=== PATIENT | male | born 1965 | race Caucasian/White ===

== ENCOUNTER 2023-09-07 08:21 | Outpatient (OUT) | payer OTHER, SELFPAY ==
[2023-09-07 09:00] LABS: Basophils Percent Auto 0.6 % (0.2-2.0); Eosinophils Absolute Auto 0.2 10^3/uL (0.0-0.7); Eosinophils Percent Auto 2.9 % (0.9-7.0); Hematocrit 46.3 % (42.0-54.0); Hemoglobin 14.9 g/dL (14.0-18.0); Immature Granulocytes Abs Auto 0.01 10^3/uL (0.00-0.03); Immature Granulocytes Pct Auto 0.2 % (0.0-0.5); Lymphocytes Absolute Auto 1.9 10^3/uL (1.2-3.8); Mean Corpuscular HGB Conc 32.2 g/dL (29.9-35.2); Mean Corpuscular Hemoglobin 29.5 pg (25.9-34.0); Mean Corpuscular Volume 91.7 fL (80.0-94.0); Mean Platelet Volume 10.7 fL (9.5-13.5); Monocytes Absolute Auto 0.6 10^3/uL (0.3-0.8); Monocytes Percent Auto 8.4 % (1.7-12.0); Neutrophils Absolute Auto 3.9 10^3/uL (1.4-6.5); Neutrophils Percent Auto 58.9 % (43.0-75.0); Platelet Count 146 10^3/uL (150-450); Red Blood Count 5.05 10^6/uL (4.70-6.10); Red Cell Distribution Width 12.7 % (11.0-15.0); White Blood Count 6.6 10^3/uL (4.0-11.0)
[2023-09-07 09:07] LABS: Estimated Average Glucose 157 mg/dL; Glycohemoglobin A1C 7.1 % (4.5-6.2)
[2023-09-07 09:37] LABS: Alanine Aminotransferase 36 U/L (16-63); Albumin Globulin Ratio 0.8; Albumin Level 3.2 g/dL (3.4-5.0); Alkaline Phosphatase 82 U/L (46-116); Anion Gap 15.5; Aspartate Amino Transferase 26 U/L (15-37); BUN Creatinine Ratio 10.7; Bilirubin Total 0.5 mg/dL (0.2-1.0); Calcium 8.5 mg/dL (8.5-10.1); Carbon Dioxide 24.8 mmol/L (21.0-32.0); Chloride 105 mmol/L (98-107); Chol HDL Ratio 5.5; Cholesterol 198 mg/dL (<=200); Estimated GFR (African America >60 (>=60); Estimated GFR (Non-African Ame >60 (>=60); Free T3 2.42 pg/mL (2.18-3.98); Glucose 148 mg/dL (74-106); HDL Cholesterol 36 mg/dL (40-60); Potassium 4.3 mmol/L (3.5-5.1); Sodium 141 mmol/L (136-145); Thyroid Stimulating Hormone 1.255 uIU/mL (0.358-3.740); Total Protein 7.2 g/dL (6.4-8.2); Triglycerides 112 mg/dL (<=150); VLDL CHOLESTEROL 22.4 mg/dL
== END 2023-09-07 08:22 | disposition home or self-care (01) ==
LOC: LAB 08:26
PROVIDERS: PCP Family Medicine; Visit Provider Family Medicine
DX: Z00.00 Encounter for general adult medical examination without abnormal findings (principal); E78.5 Hyperlipidemia, unspecified; E03.9 Hypothyroidism, unspecified; R73.09 Other abnormal glucose
CPT/HCPCS: 36415; 80053; 80061; 83036; 84436; 84443; 84481; 85025; G0103

== ENCOUNTER 2023-09-19 17:55 | Outpatient (OUT) | payer OTHER, SELFPAY ==
--- OUTSIDE RECORDS SUMMARY | 2023-09-19 17:58 | XMS_ITS ---
Patient Summarization (C-CDA 2.1 CCD) Created on: September 19, 2023 RICK JENKINS : 1965 Sex: Male Author Organization Sample organization Care Team Providers Care [employer]ian [employer] Name Role Phone JUAN ALBERTO HODGE Primary Care Unavailable EARNEST MELLO Admitting Unavailable EARNEST MELLO Attending Unavailable BILLY BLACKMAN Consulting Unavailable OUSMANE ANDERSON V Consulting Unavailable MEG REYEZ Admitting Unavailable MEG REYEZ Attending Unavailable JUAN ALBERTO HODGE Primary Care Unavailable GAVINO RODRIGUEZ Consulting Unavailable MEG REYEZ Consulting Unavailable Encounters Encounter Date Encounter Type Care Provider Facility Start: 04-13-2019 End: 04-14-2019 Patient encounter procedure MEG REYEZ Facility: Start: 03-21-2019 End: 03-21-2019 Patient encounter procedure JUAN ALBERTO LEONARDO Facility:[facility] Payers Date Payer Category Payer Unknown [id number] 1965 Unknown [id number] 1961 Private Health Insurance [id number] 1961 Unknown [id number] Problems Active Problems Problem Classification Problem Date Documented Date Episodic/Chronic External cause codes: Fall (1 source) Fall on same level from slipping, tripping and stumbling without subsequent striking against object, initial encounter; Translations: [FALL SAME LVL SLIP NO STRK OBJ INIT] Onset: 03-24-2019 Joint disorders and dislocations; trauma-related (1 source) Chondromalacia patellae, right knee; Translations: [CHONDROMALACIA PATELLAE RIGHT KNEE] Onset: 04-14-2019 Chronic Past or Other Problems Problem Classification Problem Date Documented Da te Episodic/Chronic Other connective tissue disease (1 source) Synovial cyst of popliteal space [Guajardo], right knee; Translations: [SYNOVIAL CYST POP SPACE RIGHT KNEE] Onset: 04-14-2019 Episodic Other injuries and conditions due to external causes (3 sources) Unspecified injury of right lower leg, initial encounter; Translations: [UNS INJURY RT LOWER LEG INITIAL ENC] Onset: 03-21-2019 Episodic Sprains and strains (5 sources) Sprain of unspecified site of right knee, initial encounter; Translations: [Sprain of medial collateral ligament of right knee, initial encounter] Onset: 04-13-2019 Episodic Results Test Name Value Interpretation Reference Range Facility Operative Reporton Operative Report Date of Surgery: 08/05/2020 SURGEON: Cody Vazquez D.O. PREOPERATIVE DIAGNOSES: 1. Medial meniscus tear, right knee 2. [facility] injury 03/20/2019 POSTOPERATIVE DIAGNOSES: 1. Medial meniscus tear, right knee 2. [facility] injury 03/20/2019 OPERATION: 1. Examination under anesthesia, right knee 2. Right knee diagnostic arthroscopy 3. Arthroscopic partial medial meniscectomy 4. Arthroscopic chondroplasty to the medial and patellofemoral compartments ANESTHESIA: General with a regional block ANESTHESIOLOGIST: Aneudy Milner Jr., D.O., and Stephanie Alarcon OPERATIVE INDICATIONS: Mr. Jenkins is a 55-year-old gentleman who injured his right knee at work back in February of 2019. He tripped over a pallet and twisted his right knee. He has had pain along the medial aspect of his knee ever since that time. He has failed numerous conservative measures. He agreed to proceed with the above procedure after discussion of risks, benefits, complications, alternatives, and expectations. Please see office notes for further details. PROCEDURE: The correct operative site was identified and marked in the Preoperative Holding Area. The patient was transported to the Regional Block Room and administered a regional anesthetic nerve block by the anesthesiologist. He was transported to the Operating Room and placed supine on the operating room table. He was administered a general anesthetic. After adequate anesthesia was obtained, a well-padded tourniquet was applied to the right upper thigh. A surgical time-out was performed with all required personnel present. The right knee was examined and found to have full flexion and extension, no patellar instability, negative Rd, negative anterior and posterior drawer, no varus or valgus instability at 0 and 30 degrees. The right lower extremity was placed in the arthroscopic leg yadav. The left lower extremity was placed in the padded well-leg yadav. The foot of the table was dropped. The right lower extremity was prepped and draped in the usual sterile fashion. Limb was exsanguinated with an Esmarch. Tourniquet was inflated to 300 mmHg. A standard anterolateral portal was made. The arthroscope was introduced into the knee. A medial portal was made with outside-in technique using spinal needle localization. A hook probe was inserted. Diagnostic arthroscopy was carried out with the findings as noted below: 1. Patellofemoral compartment: The patella had grade 3-4 changes along its medial facet. Central aspect of the patella had grade 3 changes. The lateral facet had grade 2-3 changes. The trochlea had grade 2 changes centrally. There were no loose bodies or debris, no plica, no synovitis. 2. Medial compartment: There was a small flap tear at the junction of the body and anterior horn of the medial meniscus. This was in the white-white zone. The remainder of the medial meniscus was intact. Medial femoral condyle had grade 2-3 changes along its posterior weightbearing aspect. The medial tibial plateau had grade 1 changes adjacent to the condylar changes. 3. Intercondylar notch: ACL and PCL intact. 4. Lateral compartment: Lateral meniscus was free of any tears. The lateral femoral condyle and lateral tibial plateau were free of any articular changes. 5. The medial and lateral gutters were free of any loose bodies or debris. The scope was placed through the anteromedial portal. All aspects of the knee were examined once again. The lesion at the medial patellar facet was better visualized from this viewing portal. Otherwise, there was no new pathology identified. The scope was placed back in the anterolateral portal. The torn portion of the medial meniscus was resected with the motorized shaver. The meniscus was probed following resection and found to be stable. Chondroplasty was performed to the medial femoral condyle with the motorized shaver to debride loose flaps around the edge of the cartilage wear. The scope was placed back in the patellofemoral compartment and chondroplasty performed to the undersurface of the patella. The knee was then thoroughly irrigated. All arthroscopic instruments were removed. Portals were closed with 4-0 nylon. A dressing consisting of bacitracin, Adaptic, 4x4's, and soft roll was applied. Tourniquet was deflated. Adequate perfusion was noted to return to the right lower extremity. The patient was reversed from anesthesia having tolerated procedure well. He was transported to the Recovery Room in good condition. COUNTS: Sponge and needle counts were correct SPECIMEN: No specimen ESTIMATED BLOOD LOSS: No blood loss COMPLICATIONS: No complications CASE: Clean and elective Cody Vazquez D.O. [facility] Dictated: 08/05/2020 #[id number] Typed: 08/05/2020 #[id number] cc: Cody Vazquez D.O. [facility] Comment on above: Result Comment: Elec tronically Signed By: Cody Vazquez DO\.br\Date and Time Signed: 08/24/20 08:45 EDT Consent for Treatmenton 07-24 Consent for Treatment [id number] D:127 [facility] Physician Orderon 08-17-2020 Physician Order [id number]#1.00 CD:127 [facility] US LE Venous Duplex Righton 08-17-2020 US LE Venous Duplex Right Exam Date/Time: 08/17/2020 08:23 EDT Reason for Exam: RIGHT LE EDEMA & STATUS POST SCOPE Report IMPRESSION: NO EVIDENCE OF VENOUS THROMBOSIS INVOLVING VISUALIZED DEEP VEINS OF THE RIGHT LEG. CLINICAL HISTORY: RIGHT LE EDEMA & STATUS POST SCOPE right calf bruising COMMENT: On the right, the greater saphenous vein, common femoral vein, deep femoral vein, femoral vein, and popliteal vein demonstrate spontaneous phasic venous flow, with augmentation, competence, non-pulsatility, and compressibility every 2 cm. The right posterior tibial and peroneal veins of the deep venous system compress. The contralateral left common femoral vein demonstrates spontaneous phasic venous flow. FINAL REPORT Dictated: 08/17/2020 8:26 am Alcides Lange M.D. Signed (Electronic Signature): 08/17/2020 8:26 am Signed by: Alcides Lange M.D. Transcribed by: ANATOLIY Technologist: KARRIE [facility] Coding Summary.on 08-16-2020 Coding Summary. CD:[id number] Gh0 bWw+PGhlYWQ+BV5SBTRiT03 zzEOnzW3XD1jLFL5QKKVNGC PQOT6EXS5umNT1NIuaU5Ked iAv CzwhtQVxHM28OSu7BZF5rYq pVOqghL4inVHfR7g1ObVtYD 24eW47WKnoOAMgUbX8NmYnv jsgbWFy U1naZoSvhVVoZbe+PHRhYmx lIHdpZHRoPScxMDAlJyBzdH jcZG2aTs1tPTOcTNFwlTlis HNlOiBj r8loUAUvLVzvCI2lqOsbG2R otOU5PQDsm9i7Pn19qKT+PH KbSMG4aTtsFPkua745PhTyj 4hqUQF8 rGVzQCmfGHC2C89oc5N1BET cCDMoGBY4hCR0aW6thRrtno kxV8AnhPOhQvP0DQX5tRTzd O1khXrx sitieF9rTsl+C72JIS4EUQA OAF6BDin7Q7MmTycojVM+PC 57NDFdID21yGCrsGLdt0kpj Eg1VwLf EYFeVOR5qJmiRNvbp1IqBEJ hA93bsQKnu1Q8BAQqoDcafF EnZhMvfKZ4hI6qSIcnusjiv 2hvdzsn Yrhgs7vesf34yP31G86nVUc bGMRqEQG9HTTiFAVzaHwzyr 6imY4eZi8+SQbsc0xbf7uir Ln3ScSu VYCqgyBylLbiNQK9g4ZdOb7 9L8TfbJkul1TrYlg6os10uM Tvg9E5aVP4OZskVLXeyW0jR WxlZnQ6 IAOpLpUhrA31yYBlWHrtZc7 bpFujhOwmRA7qKJCsipebNG OarL1oEVDevREpjFtiRD3fW TBpbjtm n611AvEvWQX1XPKjmCImM1G zeJ6xVuBzTUXeDQPhX5NblQ IcAUjhG218QZayBeL2URUdh sRaU7Jl QHEqpMkzDaF0y1W5Cb7Ef2S guzlcQZZ0JVhmZVM4UjC2Wc GsNiC0Z0IvHpd1WJRqxPfsK V8eJ7Ya IOLnnyvbeqkrvRR8AIRvINW hrT70vLEoIAhaBw8hp6I6h0 30YHOwNJOdvF38Yj6unNppW TBwdCBU dS6hiklht4ifiodzYaKaJGQ lABh8GVa4EXUfqEmkYzHpOD Y2ZwU3BIZ5vAOzyI4yiDdkw jhbgW9k Oyc+F09fuR7eWOH2PSP6zet dPKXnteIgPR86JZ72Z0GmGz wvdGFibGU+PGRpdiBzdHlsZ I9gPvNk t6yve5WfAWgnN8QvRFXhOAz oGls3SLNwVOA6fOG8qT2jCX UmZQgxs8O5tUQ0D4WvtnFqr q4te3if SSVdPPsmS30jjQCzs8Q1NAG dzUQ5BSDfuSlxUlJiwR18Uz c+WMOtlAswc9IpQnbvj7meo 9xfwRb9 TzGdNKUtgeCmlNvaYHS5c6A pOw34D54cBCdeCSPhXWAeMH MzMZVzjMuyfs2arB0aAi5+P GNvbCB3 pIT7vA8bGZZaDtQ7STliM88 2WwYvcXUuMtmsm7pty4qogH r7AqBgOBYijsUfrUvpVZB2c 8ZzRg38 U99dBEuiSMMnDXTeXBYhXJF phAvgaz9rzP9yCp6+PC9jb2 jfml20uG58zYB+IOZyBTL1b WxlPSdw MVYbxR0rXBnyOsU8SCIpCnA hgD79wDInXBlbJz0ppLmmsV vxZU5wQAQyrucbl891MtMnh 2xkIDEw oCWfECzvYIF8Z83rw7F7ZZP wJENiNGH8qGX6lU5zoRkdui ogbGVmdDsgdmVydGljYWwtY DpxI694 IHRvcDsnPlBhdGllbnQgTmF wTEj3W3QsYfw8UJBbbPaxLN 5fuEBvPZmxCk0orYrezQnnI Y7mKTRx tsksx530IvFpi0ccHAJtaCC sQKuwPBH7V41vz4E2HOYcGA YdTNP9aZQ5tA7tjVfxwhyes GVmdDsg luPrhXyxAVydAMtvC229XRK ytXlrEeNibaBrHSIhvEK5QH 77BB31lRLct5B7mOF1S9JmZ GRpbmct czejeAS3HWRrSLMzuI02Ja2 ctHzxEa6tZYRrRRW0XIXlbM DoT9LneE1pBhJyGSGdASOjH 3RleHQt UXcqM067ZDegOgM9LUWincZ dT5HmCKQbzCcdGqE3x9G1Uw 9AG7X5UQ93DY09iRTiz4W3t MO0Z8Ym ZNIblmwasbvhbWS1CTReAUE xbF02Pz6yrMymCa3rVVLeFY C6BXEzpQLeP3VnrK8hYkYhW DAwMDAw S4DhlFNoYFarN164HOuxOzJ 8SFXpbfZqL3KaFKExyJrsFn S1c4W2Ss0YDZd9LB24MA89z YHze9S7 zCW7F5JnFBDovilkyqjamLW 7AHRoWLGxqC16Oy4vaMizOb 4lWERfULG2TBAkjYHnV6Gdh Q5gDzBv CBEhUYWcU2KriIXeQEqlX45 9ANlrGeG8KNSzzkXfE2XwIT VngTsrUkW4u1C9Uh7QLYLoC L28XHT6 rIK4ZY18XC90X0BgPxiblFN ibGU+PHRhYmxlIHdpZHRoPS gsKEKsHgZxkNoaLI6bCz6yK GVyLWNv dTbdgOWsHoQlq5mnCJTdREo lIN6xiZqpQ0CpkJI3NVMhq8 c0Ob32R05mC6ChnDA+PGNvb FW9oHY0 rX4nNyUoSiX6BYgkS837ZwZ zlSMxSxsbj9xmt7atdSi6Ps H5SRZjqdDyfFqsJST2r1FxH u62Z29s IHdpZHRoPSIxNSUiIHZhbGl ooo2clA9vGx2+PRXrbOS0cJ Z2uM0mWdItAfQ5PQdlC179L nRvcCIv Ghjfd3lrg7wkzLa7ElRlVKW xkxLruAchOUF9z1EsKf17Y5 XjiBnqy3UuVqt1rc70mAEms 0K7mYU2 S4HwQOOcongkhIPkfGuoIU8 hSVXcfrriRZJgfF2lMAZxC7 p5MsOoBmB7KLsqA3FfgsC9G DEwcHQg ASjcSMM2U63sh9X4WXJsBUP xOWE2jZL3eK8rvZuhpoqmdC VmdDsgdmVydGljYWwtYWxpZ 246IHRv fHokPIPnkK0vCUYcoDEacJb rZJ6bDVOkzgauMzJMD2hANH 0sIERBUkwgSjwvdGQ+PHRkI QK9hSvy EOrdPXVdgV2dIZVpL5h2FwH iBmG7KJwsB7QhFTFuihviHe 44pV0wHkQgYsN0OPwiC2Ddn rI2MRLw nZKhWGyrFDU0O13dt4M5ENM oIPTiPGH7tLJ6zU4ubGdabs ogbGVmdDsgdmVydGljYWwtY RjeW201 UOAllHjvYeC5UiNhJfN7PuX 2J8LnYas9MVRqsYitDZ1qmT EjEYziEg4sjDseqFsiSE2jO TBpbjtw JHSetD5dVXWkfBBapGanAA9 rOKZjmktia808MrJaCKE4BB FbsTSrK4BouR1aHjHsOGQoI OXwS1Kr vTHsAJcvJ772SAryOgD4VYV qeiOgU3NuYMFewOjcKbV3y1 D7Vk79RwMGJQVkpkbllUP+P HRkIHN0 fNinFQsrFLLisU5iIFXdL0f 5VeYsDkH0ZSfyB9ZbDWAudy sgBg71qE9eJhIgAsE6RFxoF 6DrriJ3 QTNugYNmXCxaRPO2D86iv7L 7NFJuSJFqQEJ5hLL3kG6jdD lnbjogbGVmdDsgdmVydGljY WwtYWxp I208QMVymYqiKq8xgOS9X7O fMko9KCUfrCedTW5ycERrIL yrOy0vtXvowTufBO8sDVJwf jtwYWRk pP1bVDAptAWtjSrvQU1sZID qfqdvp416GdSoITG6AONnwP IhD5YxuX0jAhVnMZWbIZInU 3RleHQt LPuqM956KPykUsG6OLNzevE eX6ElJKNwtZnvDeZ3v5A3Tj 2XxZS7vOP6s6H6K2KslMDoH OD5JCZ6 wivfalx3A6BeItwxeOW+PC9 6CSCpHL28rNPaqIPmg7hstZ x4LhHhWKFmIXG4eSanIKuru 3JkZXIt M47noFTsn1S0HMBkiYqazPQ yKuCisFT2gV2zNFlqjbzez7 sofvlnFvbbo1xuyk45pR15Z 29sIHdp ZHRoPSIzMCUiIHZhbGlnbj0 gdI7nZc1+CYOiuZW2rJP3dH 5pHrZrWcB9QXbuG591NsBtc CIvPjxj x8qpt0uafUu1HnRpJYTxqkS xgFjfMHL8a4RxYi75T45lNA dpZHRoPSIyMCUiIHZhbGlnb d1ntJ4v Ii8+GK5qq3tmlw97tN76wXD +HJGcIJF1tSbhLDslMFXfjD 0qNIjbIhH8AVLzMcQqjZ14q GFkZGlu Oc3ilGvpgNcjYR3xQJDmxdu hy837DsXap7viNOHqfKEsYT iyJRI4V58bl5W7HLCbZBMcY AA5qKI7 mB6wmGbhliewcBYnvFjekrZ isRibEYjyCGzyF305AXElfI vhIuJrsYLfY9ccxrNHWV3xP jwvdGQ+ YKTcNEP1lYltEIujNKEpzV5 wJIHaA7v1CiRkFkS4SHmtO0 WkhsQ3ORIepMMjZTVgmVTTt G1fnlnc z5uhhgteLzDuZXRpXFi4JGf 0ERStjAhdBwBaOSR0IuX7AT I7iQMszA4kaZgwnllflP0fM yc+RklO OjwvdGQ+NWFsCIZ4qGniQAl lCIWbqJ1eYMGkW4u3EbEmUv W0WIkeG6TrdvN8TDMjzHOtA TBwdCBU gG9skhldt6mgoinpAyAoCOT bRXo4QSf3LNIztZocNtPmUW N2CqI1GBE9bSDpiJ4etNrwe dwebN6c Oyc+TVJOOjwvdGQ+PHRkIHN 7xKvcQPwhIJFbwW0kPJBrI3 s1LiBiYoJ9STwvL1QqfcQ5I GJvbGQg XANipKGVmC8csiwhz1ptwnj qDxVdDUNlOQs6PNu4QKNuiT bqVwKrYUO0KoW3EAP6rFTph W1wcJmk fjobtK4gAaz+MPV8SGV2HR9 8HM31I5XyDwftpWFkkCR+PH RhYmxlIHdpZHRoPScxMDAlJ yBzdHls ZT0n (more content not included)... Normal [facility] IntraOperative Documentson 0 08-16-2020 IntraOperative Documents [id number] D:127 Normal [facility] Main OR Intraoperative Recor don 08-12-2020 Main OR Intraoperative Record IntraOp Document Type FT Summary Primary Physician: Cody Vazquez DO Finalized Date/Time: 08/12/20 09:49:42 Pt. Name: RICK JENKINS Aranza Lama./Sex: 1965 Male Med Rec #: [id number] Physician: Cody Vazquez DO Financial #: [id number] Pt. Type: A Room/Bed: [place] [address] Admit/Disch: 08/05/20 07:32:28 - 08/05/20 13:20:00 Institution: Case Times FT Entry 1 Patient Times In Room 08/05/20 10:13:00 Out Room 08/05/20 11:01:00 Procedure Times Start 08/05/20 10:37:00 Stop 08/05/20 10:57:00 Anesthesia Times Start 08/05/20 10:13:00 Stop 08/05/20 11:01:00 Block Timeout w/ 08/05/20 09:03:00 Anesthesia Last Modified By: Aubrie BOLDEN, Darling 08/05/20 11:01:50 General Comments: Patient takent to block room by KIMI Diaz and block completed by Dr. Milner. patient tolerated well HR 78, QNO782%Ra. Patient taken back to asu with family at bedside and pulse ox applied before moving back to OR.-KIMI Peterson 08/12/20 - chart logged and finalized for charges. 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 Last Modified By: Aubrie RN, Darling 08/05/20 Aubrie RN, Darling 08/05/20 Aubrie RN, Darling 08/05/20 11:04:44 11:04:44 12:29:14 Entry 4 Entry 5 Case Attendee Leland WINSTON, Darling Gilmore RN Role Performed Scrub - Primary Computer Systems Design Analyst - Primary Time In 08/05/20 10:13:00 08/05/20 10:13:00 Time Out 08/05/20 11:01:00 08/05/20 11:01:00 Procedure KNEE ARTHROSCOPY(Right) KNEE ARTHROSCOPY(Right) Comments Last Modified By: Aubrie RN, Darling 08/05/20 Aubrie RN, Darling 08/05/20 11:04:44 11:04:44 General Comments: Chandrakant Simeon rep present for case.-KIMI Petersonmedical doctor nuclear medicine Protocols FT Pre-Care Text: Implements protective measures prior to operative or invasive procedure, confirms identity before the operative or invasive procedure, verifies operative procedure, surgical site, and laterality Entry 1 Procedure(s) KNEE ARTHROSCOPY(Right) Patient Identity Birthday, ID Band Verified (select at Check, Patient least 2): Participation Consents / H and P Anesthesia Consent, Operative Site Present Verified HandP, Surgery/Procedure Marking Verified Consent Surgical Site Yes Laterality Verified Yes Verified Procedure Verified Yes Correct Patient Yes Position Verified Availability Equipment, Implant, Prep Dry Yes Verified (If Medication Applicable) PreOp Antibiotic No Time Out Claire Soliz Given Participants EKush, Cody Vazquez DO, Wilhelm CST, Leland Early CST, Aubrie Mathews RN, Darling Time Out Complete 08/05/20 10:37:00 Outcomes Met? Yes Last Modified By: Darling Alfred RN 08/05/20 10:44:34 Post-Care Text: The patient is free from signs and symptoms of injury caused by extraneous objects Allergy Information FT Pre-Care Text: Verifies allergies Entry 1 Allergies Reviewed? Yes Allergies Reviewed Self/Patient With Outcomes Met? Yes Last Modified By: Darling Alfred RN 08/05/20 10:44:40 Post-Care Text: The patient received appropriate medication(s) safely administered during the perioperative period Surgical Procedures FT Entry 1 Procedure Description Procedure KNEE ARTHROSCOPY Modifiers Right Surgeon Description RIGHT KNEE ARTHROSCOPY, CHONDROPLASTY, PARTIAL MEDIAL MENISCECTOMY Primary Procedure Yes Primary Surgeon Cody Vazquez DO Start 08/05/20 10:37:00 Stop 08/05/20 10:57:00 Anesthesia Type General Surgical Service Orthopedics Wound Class 1 - Clean Last Modified By: Darling Alfred RN 08/05/20 11:04:50 General Case Data FT Pre-Care Text: Classifies surgical wound, implements aseptic technique, initiates traffic control Entry 1 Case Information OR OR 7 FT Case Level Level 3 Wound Class 1 - Clean Specialty Orthopedics ASA Class 2 Preop Diagnosis RIGHT KNEE MEDIAL Postop Same As Preop Yes MENISCAL TEAR Postop Diagnosis RIGHT KNEE MEDIAL Outcomes Met? Yes MENISCAL TEAR Last Modified By: Darling lAfred RN 08/05/20 10:44:52 Post-Care Text: The patient is free from signs and symptoms of infection Skin Assessment (Pre Procedure) FT Pre-Care Text: Implements protective measures to prevent skin/ tissue injury due to thermal or mechanical sources Evaluates for signs and symptoms of physical injury to skin and tissue Entry 1 Skin Integrity Intact, Hooper, Warm, and Skin Abnormality No Dry Outcomes Met? Yes Last Modified By: Darling Alfred RN 08/05/20 10:45:01 Post-Care Text: The patient is free from signs and symptoms of injury caused by extraneous objects Patient Positioning FT Pre-Care Text: (more content not included)... [facility] Postoperative Documentson Postoperative Documents [id number] CD:127 [facility] Consent for Anesthesiaon Consent for Anesthesia [id number]#1.00 CD:127 Normal [facility] Discharge Instructionson Discharge Instructions [id number]#1.00 CD:127 Normal [facility] IntraOperative Documentson 0 08-08-2020 IntraOperative Documents [id number]#[id number] CD:127 Normal [facility] Operative Reporton Operative Report Patient: RADHA JENKINS Age: 55 years Sex: Male : 1965 Associated Diagnoses: None Author: Aneudy Milner Jr, DO Postoperative Information Date/ Time: 08/05/2020 09:00:00 Preoperative Diagnosis: Acute postoperative pain.. Postoperative Diagnosis: Acute postoperative pain. Procedure: Femoral nerve block. Anesthesia Method: Local, Monitored anesthesia care. Performed by: Aneudy Milner Jr, DO Medications: Midazolam 2mg. Complications: None. Notes: The patient was interviewed and examined prior to the planned operation. Anesthesia options were discussed including femoral nerve block for postoperative analgesia. This discussion included a description of the procedure, risks and benefits, as well as alternatives to the block. The patients questions were addressed and the patient elected to proceed with the femoral nerve block. The patient was placed in the supine position and monitored with continuous pulse oximetry, non-invasive blood pressure, and electrocardiography. The upper thigh was prepped with ChloraPrep and sterilely draped. Anatomical landmarks were identified with ultrasonographic guidance. A 2 x 22 gauge Stimuplex needle was inserted without pain or paresthesias. Loss of twitch was observed at _0.3_ mA. Following a negative attempted aspiration for blood, Ropivacaine 0.5% WITH 4MG DECADRON was slowly injected with to a total volume of _20_ cc. Periodic negative attempts at aspiration for blood were made as the local was injected. Initial injection of the first two cc's of anesthetic demonstrated a positive Oswaldo test. No pain or paresthesias were elicited with injection of the anesthetic. The patient tolerated the procedure well. The patient was then induced for general anesthesia and preparations for the proposed operation continued.. Normal [facility] Comment on above: Result Comment: Elec tronically Signed By: Aneudy Milner Jr, DO\.br\Date and Time Signed: 08/08/20 10:26 EDT Preoperative Documentson Preoperative Documents [id number]#[id number] CD:127 Normal [facility] Progress Note-Physicianon Progress Note-Physician Patient: RICK JENKINS Age: 55 years Sex: Male : 1965 Associated Diagnoses: None Author: Aneudy Milner Jr, DO Postoperative Information Post Operative Note: Post Anesthesia Care Unit. Anesthetic utilized: General. Health Status Allergies: Allergic Reactions (Selected) No Known Medication Allergies Problem list: All Problems GERD (gastroesophageal reflux disease) / SNOMED CT [id number] / Confirmed Physical Examination Vital Signs 08/05/2020 13:02 EDT Temperature Oral 36.4 DegC Heart Rate Monitored 69 bpm Respiratory Rate 18 br/min Systolic Blood Pressure 137 mmHg Diastolic Blood Pressure 89 mmHg Blood Pressure Location Left arm Mean Arterial Pressure, Monitered 105 mmHg SpO2 97 % BP/Pulse Patient Position Sitting 08/05/2020 11:42 EDT Heart Rate Monitored 60 bpm Respiratory Rate 16 br/min Systolic Blood Pressure 138 mmHg Diastolic Blood Pressure 86 mmHg Blood Pressure Location Right arm Mean Arterial Pressure, Monitered 103 mmHg SpO2 98 % 08/05/2020 11:42 EDT Temperature Oral 36.4 DegC 08/05/2020 11:30 EDT Temperature Temporal Artery 36.2 DegC LOW Heart Rate Monitored 67 bpm Respiratory Rate Monitored 15 br/min Systolic Blood Pressure 122 mmHg Diastolic Blood Pressure 80 mmHg Blood Pressure Location Right arm SpO2 97 % 08/05/2020 11:15 EDT Heart Rate Monitored 64 bpm Respiratory Rate Monitored 11 br/min Systolic Blood Pressure 132 mmHg Diastolic Blood Pressure 90 mmHg Blood Pressure Location Right arm SpO2 100 % 08/05/2020 11:10 EDT Heart Rate Monitored 66 bpm Respiratory Rate Monitored 11 br/min Systolic Blood Pressure 138 mmHg Diastolic Blood Pressure 85 mmHg Blood Pressure Location Right arm SpO2 100 % 08/05/2020 11:05 EDT Heart Rate Monitored 82 bpm Respiratory Rate Monitored 17 br/min Systolic Blood Pressure 140 mmHg Diastolic Blood Pressure 96 mmHg HI Blood Pressure Location Right arm SpO2 97 % 08/05/2020 11:03 EDT Temperature Temporal Artery 36.1 DegC LOW Heart Rate Monitored 73 bpm Respiratory Rate Monitored 11 br/min Systolic Blood Pressure 139 mmHg Diastolic Blood Pressure 90 mmHg Blood Pressure Location Right arm SpO2 99 % 08/05/2020 11:00 EDT Heart Rate Monitored 89 bpm bpm Respiratory Rate 8 br/min br/min SpO2 99 % % 08/05/2020 10:56 EDT Systolic Blood Pressure 118 mmHg mmHg Diastolic Blood Pressure 67 mmHg mmHg 08/05/2020 10:55 EDT Heart Rate Monitored 81 bpm bpm Respiratory Rate 16 br/min br/min SpO2 96 % % 08/05/2020 10:52 EDT Systolic Blood Pressure 110 mmHg mmHg Diastolic Blood Pressure 70 mmHg mmHg 08/05/2020 10:50 EDT Heart Rate Monitored 76 bpm bpm Respiratory Rate 17 br/min br/min SpO2 96 % % 08/05/2020 10:48 EDT Systolic Blood Pressure 111 mmHg mmHg Diastolic Blood Pressure 75 mmHg mmHg 08/05/2020 10:45 EDT Heart Rate Monitored 73 bpm bpm Respiratory Rate 15 br/min br/min SpO2 96 % % 08/05/2020 10:44 EDT Systolic Blood Pressure 111 mmHg mmHg Diastolic Blood Pressure 77 mmHg mmHg 08/05/2020 10:40 EDT Heart Rate Monitored 75 bpm bpm Respiratory Rate 13 br/min br/min Systolic Blood Pressure 111 mmHg mmHg Diastolic Blood Pressure 76 mmHg mmHg SpO2 96 % % 08/05/2020 10:36 EDT Systolic Blood Pressure 99 mmHg mmHg Diastolic Blood Pressure 75 mmHg mmHg 08/05/2020 10:35 EDT Heart Rate Monitored 73 bpm bpm Respiratory Rate 12 br/min br/min SpO2 95 % % 08/05/2020 10:32 EDT Systolic Blood Pressure 109 mmHg mmHg Diastolic Blood Pressure 71 mmHg mmHg 08/05/2020 10:30 EDT Heart Rate Monitored 68 bpm bpm Respiratory Rate 16 br/min br/min SpO2 97 % % 08/05/2020 10:28 EDT Systolic Blood Pressure 111 mmHg mmHg Diastolic Blood Pressure 75 mmHg mmHg 08/05/2020 10:25 EDT Heart Rate Monitored 78 bpm bpm Respiratory Rate 20 br/min br/min SpO2 98 % % 08/05/2020 10:24 EDT Systolic Blood Pressure 119 mmHg mmHg Diastolic Blood Pressure 78 mmHg mmHg 08/05/2020 10:20 EDT Heart Rate Monitored 81 bpm bpm Respiratory Rate 17 br/min br/min Systolic Blood Pressure 121 mmHg mmHg Diastolic Blood Pressure 85 mmHg mmHg SpO2 99 % % 08/05/2020 10:15 EDT Systolic Blood Pressure 165 mmHg mmHg Diastolic Blood Pressure 104 mmHg mmHg 08/05/2020 9:55 EDT Respiratory Rate 1 br/min br/min 08/05/2020 8:24 EDT Heart Rate Monitored 73 bpm Systolic Blood Pressure 150 mmHg HI Diastolic Blood Pressure 96 mmHg HI Blood Pressure Location Left arm Mean Arterial Pressure, Monitered 114 mmHg BP/Pulse Patient Position Supine 08/05/2020 8:23 EDT Heart Rate Monitored 74 bpm Systolic Blood Pressure 158 mmHg HI Diastolic Blood Pressure 97 mmHg HI Blood Pressure Location Right arm Mean Arterial Pressure, Monitered 117 mmHg BP/Pulse Patient Position Supine 08/05/2020 8:06 EDT Heart Rate Monitored 76 bpm Systolic Blood Pressure 161 mmHg HI Diastolic Blood Pressure 101 mmHg HI Blood Pressure Location Left arm Mean Arterial Pressure, Monitered 121 mmHg BP/Pulse Patient Position Supin (more content not included)... Normal [facility] Comment on above: Result Comment: Elec tronically Signed By: Aneudy Milner Jr, DO\.br\Date and Time Signed: 08/08/20 10:25 EDT Progress Note-Physician Patient: RICK JENKINS Age: 55 years Sex: Male : 1965 Associated Diagnoses: None Author: Aneudy Milner Jr, DO Preoperative Information Time patient last ate or drank:=== (npo 8 hours) Anesthesia history: Patient history: No prior anesthesia problems. Re-evaluation prior to induction: Completed, Initial evaluation reviewed. Review of Systems Respiratory: No shortness of breath. Cardiovascular: No chest pain. Hematology/Lymphatics: No bruising tendency, No bleeding tendency. Health Status Allergies: Allergic Reactions (All) No Known Medication Allergies Current medications: (Selected) Inpatient Medications Ordered Lactated Ringers IV Tracey 1000 mL 1,000 mL: 1,000 mL, IV, 150 mL/hr, Routine, Start date 08/05/20 7:30:00 EDT, 6.7 hour(s), Total volume (mL): 1,000, 120 kg, 2.5, m2 Documented Medications Documented Pantoprazole [address] Tab: 40 mg = 1 tab(s), Oral, Daily, Refills(s) 0, Control of stomach acid Problem list: All Problems GERD (gastroesophageal reflux disease) / SNOMED CT [id number] / Confirmed Histories Past Medical History: No active or resolved past medical history items have been selected or recorded. Family History: No family history items have been selected or recorded. Procedure history: Partial lobectomy of lung ([id number]) on 07/15/2012 at 47 Years. Rotator cuff repair ([id number]). Social History Social & Psychosocial Habits Alcohol 07/26/2020 Use: Current Type: Beer Frequency: 1-2 times per week 08/05/2020 Risk Assessment: Medium Risk Substance Abuse 07/26/2020 Risk Assessment: Denies Substance Abuse Tobacco 07/26/2020 Risk Assessment: Denies Tobacco Use . Physical Examination Vital Signs 08/05/2020 8:24 EDT Heart Rate Monitored 73 bpm Systolic Blood Pressure 150 mmHg HI Diastolic Blood Pressure 96 mmHg HI Blood Pressure Location Left arm Mean Arterial Pressure, Monitered 114 mmHg BP/Pulse Patient Position Supine 08/05/2020 8:23 EDT Heart Rate Monitored 74 bpm Systolic Blood Pressure 158 mmHg HI Diastolic Blood Pressure 97 mmHg HI Blood Pressure Location Right arm Mean Arterial Pressure, Monitered 117 mmHg BP/Pulse Patient Position Supine 08/05/2020 8:06 EDT Heart Rate Monitored 76 bpm Systolic Blood Pressure 161 mmHg HI Diastolic Blood Pressure 101 mmHg HI Blood Pressure Location Left arm Mean Arterial Pressure, Monitered 121 mmHg BP/Pulse Patient Position Supine 08/05/2020 8:02 EDT Temperature Oral 36.4 DegC Heart Rate Monitored 79 bpm Respiratory Rate 20 br/min Systolic Blood Pressure 176 mmHg HI Diastolic Blood Pressure 105 mmHg HI Blood Pressure Location Right arm Mean Arterial Pressure, Monitered 128 mmHg SpO2 98 % BP/Pulse Patient Position Supine 08/05/2020 8:02 EDT Apical Heart Rate 72 bpm Measurements from flowsheet : Measurements 08/05/2020 7:56 EDT Height/Length Measured 187.96 cm Height/Length Dosing 188.0 cm Weight Dosing 120.0 kg BSA Measured 2.5 m2 Body Mass Index Measured 33.97 kg/m2 Weight Measured 120.0 kg Respiratory: Lungs are clear to auscultation. Cardiovascular: Normal rate, Regular rhythm. Review / Management Results review Interpretation of Outside Results Chest x-ray results Radiology results ECG interpretation Condition Plan [place] [employer] (ASA) physical status classification: Class II. Anesthetic Preoperative Plan Anesthesia: General. . Anesthetic plan, risks, benefits, and alternatives discussed with the patient and/or family. Risks discussed: nausea, vomiting, headache, sore throat, dental injury, serious complications. Patient verbalized understanding. Communication: face to face with (patient 5 minutes, Pt educated on the importance of smoking cessation.). [facility] Comment on above: Result Comment: Elec tronically Signed By: Aneudy Milner Jr, DO\.br\Date and Time Signed: 08/08/20 10:26 EDT Consent for Treatmenton 07-23 Consent for Treatment [id number] D:127 [facility] H&P Updateon 08-05-2020 H&P Update [id number] CD:127 [facility] Inpatient Patient Summaryon 08-05-2020 Inpatient Patient Summary [place] [id number] [facility] Clinical Discharge Instructions PERSON INFORMATION Name: RICK JENKINS PHYSICIANS Admitting Physician: Cody Vazquez DO Attending Physician: Cody Vazquez DO PCP: Leonardo PETERS, Juan Alberto Discharge Diagnosis: Comment: PATIENT EDUCATION INFORMATION Instructions: Knee Cryocuff Patient Instructions - FT (CUSTOM); Post Op Patient Instructions - FT (CUSTOM); Millicent Vazquez - Knee Arthroscopy (Custom) Medication Leaflets: Follow up: MEDICATION LIST New Medications [facility] #[id number], [address], [place] [id number], [phone] acetaminophen-hydrocodo ne (Ligonier 325 mg-5 mg oral tablet) 1-2 tab(s) Oral q4hr; as needed for pain. Refills: 0. aspirin (Aspirin 81 mg Tab-EC) 2 Tablets By Mouth every day for 30 Days. Refills: 0. docusate (Colace 100 mg Cap) 1 Capsules By Mouth 2 times a day as needed for constipation. Refills: 0. meloxicam (meloxicam 15 mg Tab) 1 Tablets By Mouth every day. Refills: 0. Medications to Continue with No Changes Other Medications pantoprazole (Pantoprazole [address] Tab) 1 Tablets By Mouth every day. Comment: Normal [facility] [place] 08-05-2020 Anion gap [Moles/Vol] 13 mmol/L Normal 6-16 [facility] Comment on above: Performed By: #### 2 [id number] ####[facility] [address] [place] [address] Chloride [Moles/Vol] 107 mmol/L Normal 101-111 [facility] Comment on above: Performed By: #### 2 [id number] ####[facility] [address] [place] [address] CO2 [Moles/Vol] 23 mmol/L Normal 21-31 [facility] Comment on above: Performed By: #### 2 [id number] ####[facility] [address] [place] [address] Potassium [Moles/Vol] 4.3 mmol/L Normal 3.5-5.3 [facility] Comment on above: Performed By: #### 2 [id number] ####[facility] [address] [place] [address] Sodium [Moles/Vol] 139 mmol/L Normal 135-145 [facility] Comment on above: Performed By: #### 2 [id number] ####[facility] [address] [place] [address] Main OR PACU I Recordon 07-23 Main OR PACU I Record PACU Phase I Document Type FT Summary Primary Physician: Cody Vazquez DO Finalized Date/Time: 08/05/20 12:14:14 Pt. Name: RICK JENKINS/Sex: 1965 Male Med Rec #: [id number] Physician: Cody Vazquez DO Financial #: [id number] Pt. Type: A Room/Bed: [place] [address] Admit/Disch: 08/05/20 07:32:28 - Institution: Case Times PACU I FT Pre-Care Text: Identifies barriers to communication and implements measures to provide psychological support Develops individualized plan of care, and ensures continuity of care Maintains patient's dignity and privacy, and maintains patient confidentiality Identifies and reports philosophical, cultural, and spiritual beliefs and values Identifies individual values and wishes concerning care Implements aseptic technique, and administers prescribed antibiotic therapy and immunizing agents as ordered Evaluates postoperative tissue perfusion Implements thermoregulation measures, and monitors body temperature Evaluates postoperative respiratory status Evaluates postoperative cardiac status Evaluates postoperative neurological status Assesses pain control, collaborated in initiating patient-controlled analgesia and implements alternative methods of pain control Verifies allergies, administers prescribed medications and solutions, evaluates response to medications Entry 1 In PACU I 08/05/20 11:03:00 Discharge from PACU 08/05/20 11:33:00 I Outcomes Met? Yes Last Modified By: Karin Boogie RN 08/05/20 12:14:06 Post-Care Text: The patient demonstrates knowledge of the expected response to the operative or invasive procedure The patient's care is consistent with the individualized perioperative plan of care The patient's right to privacy is maintained The patient's value system, lifestyle, ethnicity, and culture are considered, respected, and incorporated into the perioperative plan of care The patient participates in decisions affecting his or her perioperative plan of care The patient is free from signs and symptoms of infection The patient has wound/tissue perfusion consistent with or improved from baseline levels established preoperatively The patient is at or returning to normothermia at the conclusion of the immediate postoperative period The patient's respiratory function is consistent with or improved from baseline levels established preoperatively The patient's cardiovascular status is consistent with or improved from baseline levels established preoperatively The patient's cardiovascular status is consistent with or improved from baseline levels established preoperatively The patient demonstrates and/or reports adequate pain control throughout the perioperative period The patient received appropriate medication(s), safely administered during the perioperative period Acuity Level PACU I FT Entry 1 Start Time 08/05/20 11:03:00 Stop Time 08/05/20 11:33:00 Acuity Level Acuity Level I Last Modified By: Karin Boogie RN 08/05/20 12:14:13 Finalized By: Karin Boogie RN Document Signatures Signed By: Karin Boogie RN 08/05/20 12:14 Normal [facility] Main OR PACU II Recordon Main OR PACU II Record PACU Phase II Document Type FT Summary Primary Physician: Cody Vazquez DO Finalized Date/Time: 08/05/20 13:24:40 Pt. Name: RICK JENKINS Aranza Lama./Sex: 1965 Male Med Rec #: [id number] Physician: Cody Vazquez DO Financial #: [id number] Pt. Type: A Room/Bed: [place] [address] Admit/Disch: 08/05/20 07:32:28 - Institution: Case Times PACU II FT Pre-Care Text: Identifies barriers to communication and implements measures to provide psychological support and determines knowledge level Develops individualized plan of care, and ensures continuity of care Maintains patient's dignity and privacy, and maintains patient confidentiality Identifies and reports philosophical, cultural, and spiritual beliefs and values Identifies individual values and wishes concerning care administers prescribed antibiotic therapy and immunizing agents as ordered, Evaluates postoperative tissue perfusion Implements thermoregulation measures, and monitors body temperature Evaluates postoperative respiratory status Evaluates postoperative cardiac status Evaluates postoperative neurological status Assesses pain control, collaborated in initiating patient-controlled analgesia and implements alternative methods of pain control Verifies allergies, administers prescribed medications and solutions, evaluates response to medications Entry 1 In PACU II 08/05/20 11:35:00 Discharge from PACU 08/05/20 13:20:00 II Outcomes Met? Yes Last Modified By: Debi BOLDEN, Jennifer Martinez 08/05/20 13:24:40 Post-Care Text: The patient demonstrates knowledge of the expected response to the operative or invasive procedure The patient's care is consistent with the individualized perioperative plan of care The patient's right to privacy is maintained The patient's value system, lifestyle, ethnicity, and culture are considered, respected, and incorporated into the perioperative plan of care The patient participates in decisions affecting his or her perioperative plan of care. The patient is free from signs and symptoms of infection The patient has wound/tissue perfusion consistent with or improved from baseline levels established preoperatively The patient is at or returning to normothermia at the conclusion of the immediate postoperative period The patient's respiratory function is consistent with or improved from baseline levels established preoperatively The patient's cardiovascular status is consistent with or improved from baseline levels established preoperatively The patient's neurological status is consistent with or improved from baseline levels established preoperatively The patient demonstrates and/or reports adequate pain control throughout the perioperative period The patient received appropriate medication(s), safely administered during the perioperative period Finalized By: Jennifer Carrera RN Document Signatures Signed By: Jennifer Carrera RN 08/05/20 13:24 Normal [facility] Main OR Preoperative Recordo n 08-05-2020 Main OR Preoperative Record PreOp Document Type FT Summary Primary Physician: Cody Vazquez DO Finalized Date/Time: 08/05/20 10:43:42 Pt. Name: RICK JENKINS /Sex: 1965 Male Med Rec #: [id number] Physician: Cody Vazquez DO Financial #: [id number] Pt. Type: A Room/Bed: [place] [address] Admit/Disch: 08/05/20 07:32:28 - Institution: Case Times PreOp FT Pre-Care Text: Verifies consent for planned procedure, identifies individual values and wishes concerning care, includes family members in perioperative teaching Entry 1 Patient Times. In Pre Surgery 08/05/20 07:45:00 Out Pre Surgery 08/05/20 10:11:00 Outcomes Met? Yes Last Modified By: Darling Alfred RN 08/05/20 10:43:38 Post-Care Text: The patient participates in decisions affecting his or her perioperative plan of care Finalized By: Darling Alfred RN Document Signatures Signed By: Darling Alfred RN 08/05/20 10:43 Normal [facility] Monitor Recordon 08-05-2020 Monitor Record [id number] CD:127 Normal [facility] Outpatient Surgery Discharge Instructionon 08-05-2020 Outpatient Surgery Discharge Instruction [place] [id number] Patient Discharge Instructions PERSON INFORMATION Name: RICK JENKINS Date of : 1965 Current Date: 08/05/2020 11:29:38 PHYSICIANS Admitting Physician: Cody Vazquez DO Discharge Diagnosis: RIKC JENKINS has been given the following list of follow-up instructions, prescriptions, and patient education materials: IF UNABLE TO CONTACT YOUR PHYSICIAN AND YOU FEEL IT IS AN EMERGENCY, GO TO THE NEAREST EMERGENCY ROOM OR CALL 911 GREGORY Varner DARL J, have received the attached patient education materials/instructions and have verbalized understanding: May we do a follow up call? Yes No I was present when discharge instructions were given Patient Signature Date Clinican/Nurse Signature _ Date Follow up: Pharmacy Information: [facility] [place] You may receive a survey from [employer] asking you to rate your care experience. Your feedback is important and will help us understand what we do well and how we can improve the quality of care we provide to you, your loved ones and our community. It?s an honor to serve you. Thank you for choosing [facility] HERE ARE THE MEDICATION CHANGES THAT OCCURRED DURING YOUR HOSPITAL STAY New Medications [id number], [address] [place], [place] [id number], [phone] acetaminophen-hydrocodo ne (Ligonier 325 mg-5 mg oral tablet) 1-2 tab(s) Oral q4hr; as needed for pain. Refills: 0. aspirin (Aspirin 81 mg Tab-EC) 2 Tablets By Mouth every day for 30 Days. Refills: 0. docusate (Colace 100 mg Cap) 1 Capsules By Mouth 2 times a day as needed for constipation. Refills: 0. meloxicam (meloxicam 15 mg Tab) 1 Tablets By Mouth every day. Refills: 0. Medications to Continue with No Changes Other Medications pantoprazole (Pantoprazole [address] Tab) 1 Tablets By Mouth every day. PATIENT EDUCATION INFORMATION Instructions: [place], [place] [facility] DISCHARGE INSTRUCTIONS: KNEE ARTHROSCOPY Diet Begin with a liquid diet and advance to your normal diet as tolerated. Activity You may gradually increase your activity as tolerated. Until your first post-operative visit elevate your knee higher than your heart, whenever you are sitting or lying down. Knee swelling will gradually decrease after surgery. Increased swelling is usually a sign of over-activity and should be a signal for you to be less active and apply ice as needed. Your exercise program is the goldberg to successful rehabilitation of your knee. Do the exercises daily as instructed. You will receive further exercises at your next visit as needed. The possible need for Physical Therapy will then be discussed. You may bear weight on your operative leg, but you use your crutches or walker for support when ambulating. This is important for protection of your knee after surgery. Although you will find that you can walk without crutches or walker, it is not healthy for you until you regain adequate muscle strength. Use your crutches or walker until your limp is gone. You are encouraged to bend your knee as this is comfortably tolerated. Do not forcefully bend until you have permission by your surgeon. Driving is legal, but if you are involved in an accident, you must be able to prove that you maintained full control of your vehicle. For this reason, it is advised that you do not drive until your strength returns, generally in 1-2 weeks. Similarly, all sports activities are discouraged, at least until your first post-operative visit at which time we will discuss how and when to resume sports. Increased Pain Usually this is the result of over-activity and should respond well to rest, ice and elevation. If this does not provide relief, take the pain medication as directed but do not return to activity. If severe pain persists despite rest, elevation and medication, contact your surgeon. You will be given a prescription for pain medication when you leave the hospital. Please inform us of any known drug allergy. If you have any problems with the medication, it should be discontinued and our office notified. The sensation of splashing of fluid inside the knee is not cause for concern. It represents residual fluids from surgery and they will be absorbed generally in the first few days. Elevation of the leg and application of an ice pack to the knee will minimize swelling and discomfort in the first 48 hours after surgery. Incisions The por (more content not included)... Normal [facility] Patient Education - Texton 0 08-05-2020 Patient Education - Text [place], [place] [facility] DISCHARGE INSTRUCTIONS: KNEE ARTHROSCOPY Diet Begin with a liquid diet and advance to your normal diet as tolerated. Activity You may gradually increase your activity as tolerated. Until your first post-operative visit elevate your knee higher than your heart, whenever you are sitting or lying down. Knee swelling will gradually decrease after surgery. Increased swelling is usually a sign of over-activity and should be a signal for you to be less active and apply ice as needed. Your exercise program is the goldberg to successful rehabilitation of your knee. Do the exercises daily as instructed. You will receive further exercises at your next visit as needed. The possible need for Physical Therapy will then be discussed. You may bear weight on your operative leg, but you use your crutches or walker for support when ambulating. This is important for protection of your knee after surgery. Although you will find that you can walk without crutches or walker, it is not healthy for you until you regain adequate muscle strength. Use your crutches or walker until your limp is gone. You are encouraged to bend your knee as this is comfortably tolerated. Do not forcefully bend until you have permission by your surgeon. Driving is legal, but if you are involved in an accident, you must be able to prove that you maintained full control of your vehicle. For this reason, it is advised that you do not drive until your strength returns, generally in 1-2 weeks. Similarly, all sports activities are discouraged, at least until your first post-operative visit at which time we will discuss how and when to resume sports. Increased Pain Usually this is the result of over-activity and should respond well to rest, ice and elevation. If this does not provide relief, take the pain medication as directed but do not return to activity. If severe pain persists despite rest, elevation and medication, contact your surgeon. You will be given a prescription for pain medication when you leave the hospital. Please inform us of any known drug allergy. If you have any problems with the medication, it should be discontinued and our office notified. The sensation of splashing of fluid inside the knee is not cause for concern. It represents residual fluids from surgery and they will be absorbed generally in the first few days. Elevation of the leg and application of an ice pack to the knee will minimize swelling and discomfort in the first 48 hours after surgery. Incisions The portals of entry may be sore and develop bruising over the next several days. The bruising eventually resolves and does not require any special care. There may be some numbness around the portals that can take several days or several weeks to resolve as the swelling subsides. Do not apply creams or lotions to your knee. Your portals will heal best if kept dry. [facility] Discharge Instructs for Knee Arthroscopy Page 2 Dressing A soft compression dressing has been applied to your knee. This dressing should be comfortable and absorb any leakage of fluid after surgery. Although the dressing may become moist or blood stained, this is not usually a cause for concern. If this persists beyond 2-3 days, notify your surgeon. You may remove the dressing 2 days after your surgery. You may possibly have tape strips or sutures under the dressing. Do not remove these if present. Apply bandaids to the operative sites and keep these clean until your first post-operative visit. Apply betadine and band-aids to the puncture wounds in the morning (and again in the evening as needed) on a daily basis. Bathing You may shower 2 days after surgery. Bathing or soaking in water should be avoided until your first post-operative visit. Keep incisions dry until healed over. Precautions If you develop fever (101 degrees or above), increasing pain (not relieved by rest, elevation, ice and medication as prescribed), redness, or persistent swelling in your calves or feet that doesn't respond to elevation, please contact the office or the hospital. If you notice increasing drainage from the operative portals after the first few days, this should also be reported. You may have been prescribed aspirin after surgery. Take this as prescribed to help prevent blood clots. Return Visit Your post-operative follow-up appointment is generally between 7 and 10 days after surgery. You will be given an appointment card with this information. Do not hesitate to call the office or the hospital if any problems or questions arise before your appointment. ____ Cody Vazquez, DO [facility] [address] [place] [address] Reviewed: 06-09 [facility] Consent for Procedure/Surger yon 08-03-2020 Consent for Procedure/Surgery [id number]#1.00 CD:127 [facility] Coding Summary.on 07-29-2020 Coding Summary. CD:[id number] Gh0 bWw+PGhlYWQ+KK4ENYXcF50 rjVHxhK5MB0bVLC3ALWSZKW JUKJ1BKY8qhNN5FTnhK2Xtu iAv FrkejHZdSJ22CWs4LUM8gIc aZXhmfS9ueVKmM4b4DmMwFW 83uV27EMhiCJDyAeJ5OoZys jsgbWFy R5ujTgVrnUKxRbr+PHRhYmx lIHdpZHRoPScxMDAlJyBzdH rnJW5eVk2uZYIlMSRwtZbgb HNlOiBj c6zxATEjHOlcVF1dgRblQ4M kpUY4JGUib1u1Kn95aNK+PH VpDJC3dWfsTXtlk956HoGre 1fnCWA0 fUDlISkfDPC8P82zx7M4BWT iSIWdXRA7oTY4oQ2wkIpyvg lqH7NoaHKcAvA5OWD0aNIhu K8qpGis dcwxiP3gTcv+F20DQW6WNQD IBX7IOcb8F6AoGwxyrMF+PC 83DRMyJV84sNUafYDjl5bqd Fs1UpFj GIAeJMP4uHuaZMfak8UhQXL tT28pjFLzb2B1YIYkbBkpjA TfWsHxkZO0eO7aRHyvgniiz 2hvdzsn Yxaus5tref56iG97H37mCZv wNVHwEBI9HSJfCNFfgEgkss 3uwK3sPk9+HNgrz6uqv9pmx Ry1YhMk VIAduqUtaWmkYWA8a8WuBm0 2Q2IfzMlkt6VeYkh1kn22iG Srh0K4oLJ9QZlkRQTtzB9hK WxlZnQ6 UIKoHsYidQ71kVHiIAedIa7 ttRuwyMgzZC6xDFDflvgpDS WptP8aYWXtnIVuaDqsWG0xG TBpbjtm y935VuFqDGZ4CYXzqXYfZ5N jfM4pBhOwPNViPFDnB9SoaO NqMCdxL634IOeiFfI3NHLgh fCoJ3Lr KLJnhLftYoB3k8G0Jp7Ob8O dyejaFEX3FTpjPWO6FzV3Sq MtIoN7K8CsPfy3XBCprBaoX S6fL6Dy BBCqsfmqsutzhKH0PWXvOCH maG05cOLrTBaqXj9fq7W3r6 06BKEeHPXknW05Hl5nsWxoH TBwdCBU bD3flobyn8mfyuwzOvRqWSR wEAf0MCw5HXOveEqmJjQnHE E9OyE4XHA0nQEpkS8bdXszw vgzvM9x Oyc+K55fpR0aJYC1YEH3cbs hPNZhfxNvWC23BI71C4PoDh wvdGFibGU+PGRpdiBzdHlsZ Q3qSgJf d6gyt4FtQYtaO3DfMUGrDMc lYbp4ZBCjLOO5pNR3iB2mXM ItJJxfw7P9eJB7U1KefwDew c7gn6dl PTRwUBjcF06diNZiz9J7JQX ayOF9FGLztMolGqWwwR33Hd c+NCIrhAmcb6BeKrjgg0uuq 8ugdPe8 BfRbFMShteOqoKvvHQG4h7H tYf36V72tRZzoXLLrNTTuKV DiRCJulDdqak4pmJ8hTv7+P GNvbCB3 vZO8kM1zBMDtTuR1YMagU35 7BmYipIUbPmewe1peh6ayaZ p6YjQyEKFbpdNwiEusPAZ8z 6InTk39 Y13jQSqxWGAsBUVsSQUgFCN uzSepll3hgE8mGz4+PC9jb2 yesc31uD87eJT+KCToPBU2w WxlPSdw HZOxzZ8tFJpkXvF8TBUnTqN ueZ54cJOqZWayDp8hcLjbdB ksOS8wWNRxrjbiq851FfEex 2xkIDEw rDRhGUtcBQM0Z35km8X5PTY fLIFvPSI3tCH0dT4smPrgmq ogbGVmdDsgdmVydGljYWwtY QmcG287 IHRvcDsnPlBhdGllbnQgTmF zCKj7R3LnNwl6AGQdzSlcYZ 4tfBMcCAmqRk7kjQmelVxiX M6zGDDd pkneh028YrEym1qtMCSrlTZ fMEabMFC7Q72it2K8HIZbRK OqYAP2aAJ4dW5qyDmsrnjyy GVmdDsg tuNgzLysIPdhRFdlW850OER duRujSbUbfyZsAUYnnGQ6AE 17CS39vXLvd7Y1sYE1M2DcL GRpbmct clwwwLG7BTYkREJzgY86Ot1 dvIieTp4sQQBcBYB6ATThaJ NiX9NocM6oDjSeYWCePXWsS 3RleHQt ZRlxW164ATzbDpT6LDYyqpT rE3UkQXAlmDvfWlE1x3J7Jc 0NU1O8LB78CC41gVXpf4L8o XN4P4Zq PNOmttfjhwmkmMF2AEOzXUG qdD70Yt2wyJrjWz5yCHByXC W8ISBtoJHlA3PjrM9zSqYxR DAwMDAw I7SvjJDqYZaaH532LGaoInL 0IHTeqwQjP9LpIGFyaKivQw J2x0U7Ns8GXAn4PB81FA98m EDvh5V1 yMY7L1SbHORsnexfmzodjPP 7WQXtGMYteQ59Qm5nkWhiXy 4lFTMvKYX6RDSjtNMvH9Icf D1yPvId TRNyOWEfM9KjpIAzDUejL43 6JSttMzO2FJGhrbBdS5GoAU HkgIlwCxK2s4U1Tb6WYIJwW Y44ZOF3 oZJ3QW09ZP63A4ZkHdoihOW ibGU+PHRhYmxlIHdpZHRoPS dgGYVzWuLykYnrSG0tZa8xL GVyLWNv mJdfvTVtHdBgp9naZYQqWYl mDI2hdCrxW2DzjQM6IAZce3 i5An51A83mY0OizOW+PGNvb PI7pMR0 rC5uNaAyGzQ1WVvhT688LwB kqVYvMvfgn4suk6tcgUd3Zr O8BFUeabJmgUggTSA6n4BtP i75X73t IHdpZHRoPSIxNSUiIHZhbGl fmb1zpS8eVu6+NYLrnLT4hX K8qP4cKtIqLhA2OUedR336C nRvcCIv Ldbyc5doa5cejWn1WuZjCCP efuWjmOdgGJV4p6ExGr95E7 ZdeKqbc8ZgUuu9az96bGItw 1H4lRE8 S8KvQDUntwprhRJlkTivAA9 hBJOhdzvfAUUclZ5wBAFsR8 n1KgOjYiI4YIpaA7LvzeG5U DEwcHQg VDgyKQT6I33yr7Q8RCOrXCP cIUT8vNZ9eE1eyXypmmvifC VmdDsgdmVydGljYWwtYWxpZ 246IHRv nDygVEDxxB8nJKTafGChzJj wAV5uNWTalikyIgIQU9sTYN 0sIERBUkwgSjwvdGQ+PHRkI VP7bSll NChyESBavY5nLWTeX3k2DzG zIfN8FImyJ3EmIDDluyuwGo 79lO8xFlNbJhE6YKhlZ0Oou nH2TQMq dVRwMBhxHXD3S31cb7E8RNC wOSOvTQB5oGF3yI7rnCdhvw ogbGVmdDsgdmVydGljYWwtY FphZ290 IFSdlGyiCjI6KgXcZuK2DlT 9E1VuCii0XYMmeAxnPH4bmA HeAPxiJn9yxHhhgXhaQR6zW TBpbjtw CMHsmG4hPMMxsJEhvCbwCY9 jHFIpipwto750IaYpWSJ1LT TzgCYwL0HteG9lVsVfZPByE WKkF7Wn bAYtTPdrX537HWclLoS4GGL brjBcL9OuTSTbcUcmNaF0y4 W7Dx08FhGTPTAcppdcqAZ+P HRkIHN0 xZcfQWsrDUBupH1kVOSyK4d 3RnTiAhP7WWrjJ0SwLDPdzd jcXx99oY2rZdFwDrS2TUczZ 4TfwvI7 YAXmtVAyIOzdEIA0I06dk6F 0BKZiPYRmPAT9cDN4aE3olG lnbjogbGVmdDsgdmVydGljY WwtYWxp B138NORvyMfiSc2noJX1V4G kEed0BBYtpYgyVP9elNMtKK lpPp8kaAxueMniSY1oDJPny jtwYWRk zU3hNNNiiTHtzObbVO2ePFY wiigtu784HbVvMCY1KQDqeO OpV0PugZ9iFmNwAHFpKOLoC 3RleHQt XRnoY575AIliKcX9AWEzazF xU2TzQUHbaVscHlO0d6V2Cu 5DhOBsZDSfGL15ZB94KI84E 3RyPjwv dGFibGU+PHRhYmxlIHdpZHR xTHdpGKToTvRimJqdCC2hNg 9yZGVyLWNvbGxhcHNlOiBjb 2xsYXBz ZEmoPK6pmIcuI4AhdPD6JFH oi6d3Rt44K01hE9MtpKU+PG NlgBA4vHN6oW9lGkTkDuM0K UkdC278 HiVkzJXvNxjpz6dtf7zkbFa 2HcJpOHIwrfPhfCzwGOB5h6 LeQs35C85gXVxjHJKxTNVfP CUiIHZh cGscls2uxQ3zLh2+PGNvbCB 5hGT7rZ1xHjVxObP0DBigQ8 77LuSduNGkElhvE62cZ9Hbv XA+PHRy Oat9LJElfZdwHQ4gyMDeVIv cMc4aEHE2GhAkHbOzRLrsC9 EfCMSsbwcvydkauKM2EKCwN DUwaW47 Nf5daKmuLm3nUYZzAOU9QLF ulGTlG5WqsG9oMoUdHYYeQJ VbH0XxrBNcJOadJ895LXztQ cZ3TFOf zlQgA2BgKHKdtTdoUtI9r1D 8Gn1PuLxpnPBkFY8mXtRwDQ c8J6DdKth5XVBnqUuxIB9wb GFkZGlu Xw2vnScyaQsqKE5jMTKkhpg mw098JlWll4idLOOwrVHcVX dbZBY1T23ma3V9REAyVYTcL LA9gXJ1 rR3xuMtphinriHPzkSrcrmC giHbmQDloEHeiV164NZJsaV mfWdRRCdz1V0KjTrg7QKUfc UhdAB6e kHYyKRbjJd4ewFtwgWykEM3 rTJNjcooqh465WnZom3ldGE BekMHjIQfjRWD0G06qe3V9L CMwMDAw RJL9dRA7kY0mdCcikpyuwYY mdDsgdmVydGljYWwtYWxpZ2 16ZAPttUfaNp8NNhb9F9VoB md8YTNu sBkeTN5qcRPlIJavDm6kvDy uyOhuLT5rZFJubfzkh628Ka Bfk2pdMNGxcKIdSDtmOAE6F 79ey6A1 YXTbBDVpQTA3oZA2gZ7vvBj nbjogbGVmdDsgdmVydGljYW oiTSypC741MOPipNraZlFlf WVyOjwv dGQ+KM13uz28A7MjRsyrIyz 0IAToIQQ3hDC7oT3vSKUjEF huk0O6rCH1E9BvekYleo6iq 2xsYXBz ZTog (more content not included)... Normal [facility] BUNon 07-27-2020 Urea nitrogen [Mass/Vol] 12 mg/dL Normal 5-21 [facility] Comment on above: Performed By: #### 2 464731, 1164969, 2561521, 3746597, [id number] ####[facility] [address] [place] [address] Creatinineon 07-27-2020 Creatinine [Mass/Vol] 1.0 mg/dL Normal 0.5-1.3 [facility] Comment on above: Performed By: #### 2 982843, 3247260, 0375615, 9776179, [id number] ####[facility] [address] [place] [address] Glucoseon 07-27-2020 Glucose [Mass/Vol] 161 mg/dL Normal 55-199 [facility] Comment on above: Performed By: #### 2 684136, 9581449, 4700762, 3295718, [id number] ####[facility] [address] [place] [address] Outside Recordson 07-27-2020 Outside Records [id number]#1.00C D:127 Normal [facility] XR Chest 2 Viewson XR Chest 2 Views Exam Date/Time: 07/26/2020 16:17 EDT Reason for Exam: PST Report IMPRESSION: Probable Left lung scarring. No fresh infiltrate. EXAM: XR Chest 2 Views CLINICAL HISTORY: Shortness of breath PST COMPARISONS: None FINDINGS: The heart, mediastinum and pulmonary vasculature are within normal limits. Left apical density with linear bandlike scarring extending from the left apex. Findings most consistent with scarring. There are no prior studies for comparison however.. Patchy opacity at the left base consistent with pleural parenchymal scarring. Bones unremarkable. FINAL REPORT Dictated: 07/27/2020 10:44 am Tushar Hale MD Signed (Electronic Signature): 07/27/2020 10:44 am Signed by: Tushar Hale MD Transcribed by: DP Technologist: AO Normal [facility] eGFRon 07-27-2020 GFR/1.73 sq M.predicted among blacks MDRD (S/P/Bld) [Vol rate/Area] mL/min/{1.73_m2} Normal >=59 [facility] Comment on above: Order Comment: Order added by Discern Expert. Result Comment: eGFR is race adjusted. AA=. Performed By: #### 2 709087, 2777758, 8793913, 1777020, [id number] ####[facility] [address] [place] [address] GFR/1.73 sq M.predicted among non-blacks MDRD (S/P/Bld) [Vol rate/Area] mL/min/{1.73_m2} Normal >=59 [facility] Comment on above: Order Comment: Order added by Discern Expert. Result Comment: Cleaner Greaser latasha kidney disease could be indicated at eGFR's of less than 60 mL/min/1.73m2. Kidney failure is indicated at less than 15 mL/min/1.73m2. Performed By: #### 2 433740, 8723413, 6566179, 4081549, [id number] ####[facility] [address] [place] [address] CBC w/Indiceson 07-26-2020 Erythrocyte distribution width (RBC) [Ratio] 13.5 % Normal 10.9-14.2 [facility] Comment on above: Performed By: #### 2 816871, 9022035, 4444856, 6762118, 58688155 ####[facility] [address] [place] [address] Hematocrit (Bld) [Volume fraction] 44.3 % Normal 37.7-49.0 [facility] Comment on above: Performed By: #### 2 406935, 7985264, 8701992, 7450617, 77418487 ####[facility] [address] [place] [address] Hemoglobin (Bld) [Mass/Vol] 14.9 g/dL Normal 13.5-17.5 [facility] Comment on above: Performed By: #### 2 410247, 7287574, 8013481, 4959462, 34433077 ####[facility] [address] [place] [address] MCH (RBC) [Entitic mass] 30.9 pg Normal 27.0-34.0 [facility] Comment on above: Performed By: #### 2 455687, 7940891, 9863993, 2282328, 56751701 ####[facility] [address] [place] [address] MCHC (RBC) [Mass/Vol] 33.7 g/dL Normal 31.4-36.0 [facility] Comment on above: Performed By: #### 2 570122, 1727684, 1045045, 3392326, 91395283 ####[address] [place] [address] MCV (RBC) [Entitic vol] 91.6 fL Normal 80.0-100.0 [facility] Comment on above: Performed By: #### 2 330934, 2780296, 2534112, 8893194, 25737998 ####[address] [address] Platelet mean volume (Bld) [Entitic vol] 9.3 fL Normal 6.4-10.8 [facility] Comment on above: Performed By: #### 2 867141, 4220185, 5287109, 2222285, 75597188 ####[address] [address] Platelets (Bld) [#/Vol] 155.0 E9/L Normal 150.0-500.0 [facility] Comment on above: Performed By: #### 2 298692, 5191953, 7644171, 3065396, 99935813 ####[address] [address] RBC (Bld) [#/Vol] 4.8 E12/L Normal 4.3-5.9 [facility] Comment on above: Performed By: #### 2 834376, 5822207, 9563403, 4242938, 74591900 ####[address] [address] WBC corrected for nucl RBC Auto (Bld) [#/Vol] 6.0 E9/L Normal 4.0-11.0 [facility] Comment on above: Performed By: #### 2 323477, 5214699, 5697295, 4445673, 81842033 ####[address] [address] Consent for Treatmenton 05 Consent for Treatment [id number]#1.00C D:127 Normal [facility] Physician Orderon 07-22-2020 Physician Order [id number]#1.00C D:127 Normal [facility] MRI KNEE RT WO CONon 020 MRI KNEE RT WO CON Patient: RADHA JENKINS Exam Date: 04/13/2019 : 1965 Gender:M Ordering : ME[facility] Admission #: [id number] Family : CODY VAZQUEZ Order #: [id number] CLICK HERE TO VIEW EXAM RADIOLOGY REPORT PROCEDURE: MRI KNEE RIGHT WITHOUT CONTRAST COMPARISON: XR KNEE RT 4V OR >, 03/21/2019. INDICATIONS: Acute right medial knee pain after twisting injury at work one month ago, Sprain of right knee TECHNIQUE: A complete multi-planar MRI was performed. FINDINGS: MEDIAL COMPARTMENT MEDIAL MENISCUS: Increased signal in the posterior horn consistent with myxoid degeneration, but no melvin tear. CARTILAGE: No visible defect. BONES: No marrow pathology, fracture, or significant arthropathy. MCL AND MEDIAL CAPSULE: Grade II sprain of the medial collateral ligament. LATERAL COMPARTMENT LATERAL MENISCUS: No visible tear or significant degeneration. CARTILAGE: No visible defect. BONES: Prominent edema deep to the posterior, non weight-bearing articular surface of the lateral femoral condyle. LCL/POSTEROLAT COMPLEX: Normal lateral collateral ligament, fascicles, lateral capsule and ligaments. ANTERIOR COMPARTMENT PATELLA: Areas of subchondral edema deep to the apex. CARTILAGE: Loss of cartilage over the apex and marked thinning over the medial facet. TENDONS: Normal. EFFUSION: None. No synovitis or loose bodies. ACL: Normal appearing ligament. PCL: Normal appearing ligament. MENISCOFEMORAL: Normal meniscofemoral ligaments. OTHER: Tiny Guajardo cyst. CONCLUSION: 1. Grade 4 chondromalacia of the patella. 2. Grade 2 sprain of the medial collateral ligament. 3. Prominent bone bruising of the lateral femoral condyle. Dictated by: Gavino Rodriguez M.D. on 04/13/2019 at 10:03 Approved by: Gavino Rodriguez M.D. on 04/13/2019 at 10:14 Normal [facility] XR KNEE RT 4V OR >on 019 XR KNEE RT 4V OR > Patient: RADHA JENKINS Exam Date: 03/21/2019 : 1965 Gender:M Ordering : DR BILLY BLACKMAN D.O. Admission #: [id number] Family : DR. EARNEST MELLO . Order #: [id number] CLICK HERE TO VIEW EXAM RADIOLOGY REPORT PROCEDURE: RADIOGRAPH KNEE RIGHT MIN 4 VIEWS COMPARISON: None. INDICATIONS: Acute right medial knee pain after twisting his leg during fall yesterday. FINDINGS: BONES: No fracture, acute abnormality, or significant arthropathy. SOFT TISSUES: No visible soft tissue swelling or radiopaque foreign body. EFFUSION: None visible. OTHER: Negative. CONCLUSION: 1. No acute abnormality Dictated by: Ousmane Anderson M.D. on 03/21/2019 at 09:09 Approved by: Ousmane Anderson M.D. on 03/21/2019 at 09:10 [facility] Summary Purpose Family History No Family History Records FoundNo Family History Records Found Advance Directives No Advanced Directives Records FoundNo Advanced Directives Records Found Additional Source Comments (unrecognized sect ion and content) No Status Records FoundNo Status Records Found INFORMATION SOURCE (unrecogn ized section and content) DATE CREATED AUTHOR 08/19/2019 [facility] DATE CREATED AUTHOR AUTHOR'S ORGANIZ ATION 08/25/2020 [facility] FOR RECORDS PERTAINING TO PATIENTS WHO ARE OR HAVE BEEN ENROLLED IN A CHEMICAL DEPENDENCY/SUBSTANCEABUSE PROGRAM, SOME INFORMATION MAY BE OMITTED. This clinical summary was aggregated from multiple sources. Caution should be exercised in using it in the provision of clinical care. This summary normalizes information from multiple sources, and as a consequence, information in this document may materially change the coding, format and clinical context of patient data. In addition, data may be omitted in some cases. CLINICAL DECISIONS SHOULD BE BASED ON THE PRIMARY CLINICAL RECORDS. [employer] provides no warranty or guarantee of the accuracy or completeness of information in this document.
== END 2023-09-19 17:56 | disposition home or self-care (01) ==
PROVIDERS: PCP Family Medicine; Visit Provider Family Medicine
DX: E11.9 Type 2 diabetes mellitus without complications (principal)
CPT/HCPCS: G0108

== ENCOUNTER 2024-11-16 06:39 | Outpatient (OUT) | payer OTHER, SELFPAY ==
--- OUTSIDE RECORDS SUMMARY | 2024-11-12 12:00 | XMS_ITS | Continuity of Care Document ---
Author Organization [facility] Address Unknown Care Team Providers Care Channel Cementer Name Role Phone LeonardoAshok Primary Care Physician [phone] Nayely Sahu Unavailable Unavailable Encounter [facility] [id number] Date(s): 11/11/24 - 11/12/24 [facility] [address] [place] [address]- Encounter Diagnosis Obesity(Discharge Diagnosis) - 11/11/24 Chronic GERD(Discharge Diagnosis) - 11/11/24 Thrombocytopenia(Discharge Diagnosis) - 11/11/24 Hyperglycemia(Discharge Diagnosis) - 11/11/24 Alcohol use(Discharge Diagnosis) - 11/11/24 Discharge Disposition: Home (Routine DC) Attending Physician: Bladimir Palafox DO Admitting Physician: Bladimir Palafox DO Encounter Type: Observation Allergies, Adverse Reactions, Alerts No Known Medication Allergies Assessment and Plan Extracted from: Title:Consult Note Author:Estrella PETERS, Lauren Kip e:11/12/24 1. Atrial fibrillation (I48.91: Unspecified atrial fibrillation) Currently back in sinus rhythm. I would recommend to continue current management. I had long discussion with the patient regarding the importance of quitting/minimizing EtOH abuse. Maintain adequate hydration with water. Patient needs to be tested for sleep apnea as an outpatient. Weight loss program. He will need to have stress test that can potentially be done as an outpatient. Regarding anticoagulation his Jun VASc score is 0 however we have to watch for his sugar condition as he is prediabetic. Patient already thrombocytopenic. As his score is 0 and his thrombocytopenia I think we can hold off on anticoagulation but as mentioned above we need to keep an eye on his blood sugar. Patient would benefit from outpatient monitor and I advised him to get the smart watch with A-fib detection feature. 2. Hyperglycemia (R73.9: Hyperglycemia, unspecified) Exercise program per primary team management 3. Thrombocytopenia (D69.6: Thrombocytopenia, unspecified) 4. Alcohol use (F10.90: Alcohol use, unspecified, uncomplicated) 5. Chronic GERD (K21.9: Gastro-esophageal reflux disease without esophagitis) 6. Obesity (E66.9: Obesity, unspecified) In summary patient can go home he needs to follow-up with us in the office for monitor and stress test discussed with the patient thank you for the consult Extracted from: Title:Admission H & P Author:Susie Iverson CNP Date:11/11/24 1. Atrial fibrillation (I48.91: Unspecified atrial fibrillation) SVT in ER requiring adenosine x 2 IV diltiazem gtt K 3.9, Mg 1.9 -> supplement given to push > 4/2 Admit to continuous telemetry Continue IV diltiazem gtt to keep HR < 100 [id number] is 0 at current known risk factors, given thrombocytopenia will hold on anticoagulation for now, defer to cardiology Check TFTs Echocardiogram to evaluate cardiac structure and function [facility] [place] Recommend alcohol cessation, consider out patient sleep study (gender, age, snoring, obesity) 2. Hyperglycemia (R73.9: Hyperglycemia, unspecified) AccuCheck AC/HS with SSI coverage Check A1c 3. Thrombocytopenia (D69.6: Thrombocytopenia, unspecified) Unknown baseline Trend CBC 4. Alcohol use (F10.90: Alcohol use, unspecified, uncomplicated) Daily etoh use, likely contributing to above 5. Chronic GERD (K21.9: Gastro-esophageal reflux disease without esophagitis) PPI 6. Obesity (E66.9: Obesity, unspecified) Patient's BMI >30. Lifestyle modifications encouraged. Obesity is a pro-inflammatory state likely affecting above medical processes. Outpatient follow up. Orders: acetaminophen, 650 mg = 2 tab(s), Tab, Oral, q6hr PRN Pain, Routine, Start date 11/11/24 14:29:00 EDT, 11/11/24 14:29:00 EDT glucagon, 1 mg = 1 EA, Injection, IntraMuscular, q15min PRN Low blood sugar, Routine, Start date 11/11/24 14:32:00 EDT, 11/11/24 14:32:00 EDT glucose, 50 mL, Soln-IV, IV Push, q15min PRN Low blood sugar, Routine, Start date 11/11/24 14:32:00 EDT glucose, 15 gm = 32 mL, Gel, Oral, q15min PRN Low blood sugar, Routine, Start date 11/11/24 14:32:00 EDT, 11/11/24 14:32:00 EDT insulin lispro, 0-8 Unit(s), Injection-Insulin, SubCutaneous, QIDACHS, Routine, Start date 11/11/24 16:45:00 EDT magnesium sulfate + Generic Diluent 50 mL, 2 gram = 50 mL, Soln-IV, IV Piggyback, Once, Stop date 11/11/24 14:00:00 EDT, Routine, Start date 11/11/24 14:00:00 EDT, 25 mL/hr, Infuse over 2 hour(s) ondansetron, 4 mg = 2 mL, Injection, IV Push, q6hr PRN Nausea, Routine, Start date 11/11/24 14:29:00 EDT, 11/11/24 14:29:00 EDT pantoprazole, 40 mg = 1 tab(s), Tab-EC, Oral, Daily, Routine, Start date 11/12/24 9:00:00 EDT, 11/11/24 15:37:00 EDT perflutren, 1.3 mL, Injection, IV Push, Once, Stop date 11/11/24 16:00:00 EDT, Routine, Start date 11/11/24 16:00:00 EDT potassium chloride, 20 mEq = 1 tab(s), Tab-ER, Oral, Once, Stop date 11/11/24 14:00:00 EDT, Routine, Start date 11/11/24 14:00:00 EDT, 11/11/24 13:15:00 EDT Activity As Tolerated Add on Test Basic Metabolic Panel Below the Knee Intermittent Pneumatic Compression Device Cardiac Monitoring Cardiac Monitoring CBC w/ Auto Diff Communication Order Physician to Nursing Diabetic/Calorie Control Diet Echo Transthoracic Complete Evaluate Need For Continued Telemetry HgbA1c Hypoglycemia Protocol Responsive Patient Hypoglycemia Protocol Unresponsive Patient Intake and Output Magnesium Level Notify Provider Vital Signs Notify Provider Vital Signs Oxygen Protocol Pulse Oximetry Respiratory Protocol Resuscitation Status - Full Routine Capillary Glucose POC Saline Lock Convert From IV Vital Signs Weight Patient is admitted to observation status as anticipate less than 2 midnight stay for management of above at this time Full code DVT prophylaxis: SCDs for now Extracted from: Title:ED Note Author:Emiliano Bravo DO ate:11/11/24 1. Atrial fibrillation (I48.91: Unspecified atrial fibrillation) 2. Hyperglycemia (R73.9: Hyperglycemia, unspecified) 3. Thrombocytopenia (D69.6: Thrombocytopenia, unspecified) 4. Alcohol use (F10.90: Alcohol use, unspecified, uncomplicated) 5. Chronic GERD (K21.9: Gastro-esophageal reflux disease without esophagitis) 6. Obesity (E66.9: Obesity, unspecified) Orders: adenosine, 12 mg = 4 mL, Soln-IV, IV Push, Once, Stop date 11/11/24 9:55:00 EDT, Start date 11/11/24 9:55:00 EDT adenosine, 6 mg = 2 mL, Soln-IV, IV Push, Once, Stop date 11/11/24 9:47:00 EDT, STAT, Start date 11/11/24 9:47:00 EDT, 11/11/24 9:47:00 EDT aspirin, 162 mg = 2 tab(s), Tab-Chew, Oral, Once, Stop date 11/11/24 9:47:00 EDT, STAT, Start date 11/11/24 9:47:00 EDT, 11/11/24 9:47:00 EDT diltiazem, 15 mg = 3 mL, Soln-IV, IV Push, Once, Stop date 11/11/24 9:58:00 EDT, NOW, Start date 11/11/24 9:58:00 EDT, Infuse over 2 minute(s), 11/11/24 9:58:00 EDT diltiazem, 20 mg = 4 mL, Soln-IV, IV Push, Once, Stop date 11/11/24 10:31:00 EDT, NOW, Start date 11/11/24 10:31:00 EDT, Infuse over 2 minute(s), 11/11/24 10:31:00 EDT Sodium Chloride 0.9% intravenous solution 1,000 mL, 1,000 mL, IV, KVO, STAT, Start date 11/11/24 9:47:00 EDT, Total volume (mL): 1,000, 114.9 kg, 2.44, m2 Basic Metabolic Panel CBC w/ Auto Diff ECG 12 Lead Adult ED Cardiac Monitoring ED Physician consult Hospitalist for continued care eGFR Extra SST Tube Magnesium Level Oxygen Saturation Oxygen Therapy PT & PTT Saline Lock Insert Troponin 0 Hr. Troponin 1 Hr. TSH With T4fr Reflex XR Chest Single View Future Appointments Appointment Date:11/27/2024 03:30:00 PM Scheduled Provider:Lauren De La Rosa MD Location:[facility] Appointment Type:Cardiology Inpatient Follow Up (FT) Medications Pantoprazole [address] Tab 40 mg = 1 tab(s), Oral, Daily, Refills(s) 0, Control of stomach acid Start Date: 07/26/20 Status: Ordered Repeat number: 1 Problem List Condition Confirmation Course Effective Dates Status Health [facility] Informant Alcohol use Confirmed Active GERD (gastroesophageal reflux disease) Confirmed Active Chronic GERD Confirmed Active Obesity Confirmed Active Procedures Procedure Date Related Diagnosis Body Site Status Arthroscopy of knee 08/05/20 Compl eted Partial lobectomy of lung 07/15/12 Completed Rotator cuff repair Compl eted Results Laboratory List Name Date Capillary Glucose POC 11/12/24 eGFR 11/12/24 Basic Metabolic Panel (BMP) 11/12/24 CBC w/ Auto Diff 11/12/24 Magnesium Level 11/12/24 Capillary Glucose POC 11/11/24 Capillary Glucose POC 11/11/24 Troponin 1 Hr. 11/11/24 Basic Metabolic Panel (BMP) 11/11/24 CBC w/ Auto Diff 11/11/24 HgbA1c 11/11/24 Magnesium Level 11/11/24 PT & PTT 11/11/24 TSH With T4fr Reflex 11/11/24 Troponin 0 Hr. 11/11/24 eGFR 11/11/24 Most recent to oldest [Reference Range]: 1 2 3 INR 1.01 1 *NA* (11/11/24 10:02 AM) BUN/Creat Ratio [10-20] 13 (11/12/24 5:22 AM) 12 (11/11/24 10:02 AM) AGAP [6-16 mEq/L] 9 mEq/L (11/12/24 5:22 AM) 13 mEq/L (11/11/24:02 AM) Basophil Auto [0.0-2.0 %] 1.2 % (11/12/24 AM) 0.6 % (11/11/24: AM) CO2 [21-31 mmol/L] 27 mmol/L (11/12/24 AM) 22 mmol/L (11/11/24: AM) Eos Auto [0.0-8.0 %] 1.6 % (11/12/24 AM) 1.1 % (11/11/24: AM) Glucose Lvl [55-199 mg/dL] 136 mg/dL (11/12/24 AM) 290 mg/dL *HI* (11/11/24: AM) Hct [37.7-49.0 %] 45.6 % (11/12/24 AM) 49.5 % *HI* (11/11/24: AM) Hgb [13.5-17.5 gm/dL] 15.5 gm/dL (11/12/24 AM) 16.7 gm/dL (11/11/24: AM) Lymph Auto [14.0-50.0 %] 24.3 % (11/12/24 AM) 22.7 % (11/11/24:02 AM) PT [9.4-12.5 second(s)] 11.3 second(s) 2 (11/11/24: AM) PTT [25.1-36.5 second(s)] 33.2 second(s) 3 (11/11/24: AM) RBC [4.3-5.9 E12/L] 5.0 E12/L (11/12/24 AM) 5.6 E12/L (11/11/24: AM) RDW [10.9-14.2 %] 14.0 % (11/12/24 AM) 13.7 % (11/11/24:02 AM) Sodium Lvl [135-145 mmol/L] 137 mmol/L (11/12/24: AM) 138 mmol/L (11/11/24:02 AM) Troponin HS [15.90-38.40 pg/mL] 25.70 pg/mL 4 (11/11/24: AM) 18.40 pg/mL 5 (11/11/24:02 AM) TSH [0.34-5.60 mcIU/mL] 1.86 mcIU/mL (11/11/24: AM) Magnesium [1.3-2.4 mg/dL] 2.0 mg/dL (11/12/24: AM) 1.9 mg/dL (11/11/24:02 AM) MCH [27.0-34.0 pg] 30.9 pg (11/12/24 AM) 30.1 pg (11/11/24: AM) MCHC [31.4-36.0 gm/dL] 34.0 gm/dL (11/12/24 AM) 33.8 gm/dL (11/11/24: AM) MCV [80.0-100.0 fL] 90.9 fL (11/12/24: AM) 89.2 fL (11/11/24: AM) [place] Auto [4.0-14.0 %] 7.1 % (11/12/24 AM) 8.3 % (11/11/24 AM) MPV [6.4-10.8 fL] 9.2 fL (11/12/24 AM) 10.1 fL (11/11/24: AM) Neutro Auto [36.0-75.0 %] 65.8 % (11/12/24: AM) 67.3 % (11/11/24:02 AM) BUN [5-21 mg/dL] 13 mg/dL (11/12/24 AM) 15 mg/dL (11/11/24:02 AM) Calcium Lvl [8.9-11.1 mg/dL] 8.9 mg/dL (11/12/24: AM) 9.2 mg/dL (11/11/24:02 AM) Platelet [150.0-500.0 E9/L] 107.0 E9/L *LOW* (11/12/24 5:22 AM) 132.0 E9/L *LOW* (11/11/24 10:02 AM) Potassium Lvl [3.5-5.3 mmol/L] 4.3 mmol/L (11/12/24 5:22 AM) 3.9 mmol/L (11/11/24 10:02 AM) WBC [4.0-11.0 E9/L] 6.4 E9/L (11/12/24 5:22 AM) 8.3 E9/L (11/11/24 10:02 AM) Chloride [101-111 mmol/L] 105 mmol/L (11/12/24 5:22 AM) 107 mmol/L (11/11/24 10:02 AM) [place] Absolute [0.2-1.0 E9/L] 0.5 E9/L (11/12/24 5:22 AM) 0.7 E9/L (11/11/24 10:02 AM) Eos Absolute [0.0-0.5 E9/L] 0.1 E9/L (11/12/24 5:22 AM) 0.1 E9/L (11/11/24 10:02 AM) Basophil Absolute [0.0-0.2 E9/L] 0.1 E9/L (11/12/24 5:22 AM) 0.0 E9/L (11/11/24 10:02 AM) Neutro Absolute [2.0-7.5 E9/L] 4.2 E9/L (11/12/24 5:22 AM) 5.6 E9/L (11/11/24 10:02 AM) Lymph Absolute [1.0-4.0 E9/L] 1.6 E9/L (11/12/24 5:22 AM) 1.9 E9/L (11/11/24 10:02 AM) eGFR [>=59 mL/min/1.73 m2] 85 mL/min/1.73 m2 (11/12/24 5:22 AM) 69 mL/min/1.73 m2 (11/11/24 10:02 AM) Hgb A1C % [<=5.9 %] 6.4 % *HI* (11/11/24 10:02 AM) Glucose Cap [55-99 mg/dL] 126 mg/dL 6 *HI* (11/12/24 8:11 AM) 132 mg/dL 7 *HI* (11/11/24 8:40 PM) 117 mg/dL 8 *HI* (11/11/24 4:22 PM) POC Device SN [id number] *NA* (11/12/24 8:11 AM) [id number] *NA* (11/11/24 8:40 PM) [id number] *NA* (11/11/24 4:22 PM) POC User ID [id number] *NA* (11/12/24 8:11 AM) [id number] *NA* (11/11/24 8:40 PM) [id number] *NA* (11/11/24 4:22 PM) POC Username SUSIE KERR *NA* (11/12/24 8:11 AM) HEARING, LAISHA *NA* (11/11/24 8:40 PM) CLINT LECHUGA *NA* (11/11/24 4:22 PM) Creatinine [0.5-1.3 mg/dL] 1.0 mg/dL (11/12/24 5:22 AM) 1.2 mg/dL (11/11/24 10:02 AM) 1Interpretive Data: INR results are specifically intended to assess patients stabilized on long-term Anticoagulation therapy suggested INR???s ???Less Intensive Anticoagulation?? 2.0 ??? 3.0 Conventional Range 3.0 ??? 4.5 2Interpretive Data: 15 days - 4 weeks 1 - 5 months 6 -11 months 1-5 years 6-10 years 11 -17 years Mean: 11.2?? (9.5-12.6) Mean: 11.0?? (9.7-12.8) Mean: 11.0 (9.8-13.0) Mean: 11.3 (9.9-13.4) Mean: 11.7 (10.0-14.6) Mean: 11.8? (10.0 - 14.1) Pediatric Reference ranges were obtained from a study by josh Metcalf al. prepared from 1437 samples obtained at 7 different centers using the same coagulation reagent and instrumentation as [facility]. Currently there are no coagulation studies available worldwide for children to 14 days, andno normal ranges. 3Interpretive Data: Parameter 15 days -? 4 weeks 1 - 5 months 6 - 11 months 1 - 5 years 6 - 10 years 11 - 17 years PTT Mean: 35.4 (27.6-45.6) Mean: 33.5 (24.8-40.7) Mean: 32.4 (25.1-40.7) Mean: 31.6 (24.0-39.2) Mean: 31.6 (26.9-38.7) Mean: 31.0 (24.6-38.4) Pediatric Reference ranges were obtained from a study by Liborio Limon et al. prepared from 1437 samples obtained at 7 different centers using the same coagulation reagent and instrumentation as [facility]. Currently there are no coagulation studies available worldwide for children to 14 days, andno normal ranges. Heparin therapeutic range (represented by Anti-Factor Xa activity of 0.2 - 0.4 U/mL) corresponds to PTT of 56.6 - 109.0 sec. 4Interpretive Data: The 95% CI (Confidence Interval) PPV (Positive Predictive Value) for myocardial infarction in females is 38 pg/mL, in males 51 pg/mL. The results should be used in conjunction withclinical conditions of myocardial infarction. ([employer] High Sensitivity Troponin I Instructions For Use, [employer], October 2017) 5Interpretive Data: The 95% CI (Confidence Interval) PPV (Positive Predictive Value) for myocardial infarction in females is 38 pg/mL, in males 51 pg/mL. The results should be used in conjunction withclinical conditions of myocardial infarction. ([employer] High Sensitivity Troponin I Instructions For Use, [employer], October 2017) 6Result Comment: Notified RN/MD 7Result Comment: Notified RN/MD 8Result Comment: Notified RN/MD Social History Social History Type Response Smoking Status Former smoker, quit more than 30 days ago entered on: 11/11/24 Sex Male Sex Representation Male (finding) Hospital Discharge Instructions Patient Education 11/12/2024 10:11:04 Physical Activity With Heart Disease Physical Activity With Heart Disease Being active has many benefits, especially if you have heart disease. Physical activity can help you do more and feel healthier. Start slowly, and increase the amount of time you spend being active. You should aim for physical activity that: ??? Makes you breathe harder and raises your heart rate (aerobic activity). Try to get at least 150minutes of aerobic activity each week. This is about 30 minutes each day, 5 days a week. ??? Helps build muscle strength (strengthening activity). Do this at least 2 times a week. ??? A good rule of thumb is to work hard enough to breathe harder but still be able to carry on a conversation. If you can sing, you may not be working hard enough. ??? You may also want to monitor your heart rate (pulse) and blood pressure. Ask your health care provider what kind of tools you will need to track these. Always talk with your health care provider before starting any new activity program or if you have any changes in your condition. What are the benefits of physical activity? Physical activity can help improve your heart and blood vessel (cardiovascular) health. It can: ??? Lower your blood pressure. ??? Lower your cholesterol. ??? Control your weight. ??? Help control your blood sugar. ??? Improve the function of your heart and lungs. ??? Reduce your risk of developing blood clots. Physical activity can help improve other aspects of your health. It can: ??? Prevent bone loss. ??? Improve your sleep. ??? Improve your energy level. ??? Reduce stress. What are some types of physical activity I could try? There are many ways to be active. Talk with your health care provider about what types and intensity of activity is right for you. Aerobic activity Aerobic (cardiovascular) activity can be moderate or vigorous intensity, depending on how hard you are working. Moderate-intensity activity includes: ??? Walking. ??? Slow bicycling. ??? Water aerobics. ??? Dancing. ??? Light gardening or house work. Vigorous-intensity activity includes: ??? Jogging or running. ??? Stair climbing. ??? Swimming laps. ??? Hiking uphill. ??? Heavy gardening, such as digging trenches. Strengthening activity Strengthening activities work your muscles to build strength. Some examples include: ??? Doing push-ups, sit-ups, or pull-ups. ??? Lifting small weights. ??? Using resistance bands. ??? Yoga. Flexibility Flexibility activities lengthen your muscles to keep them flexible and less tight and improve your balance. Some examples include: ??? Stretching. ??? Yoga. ??? Jerrell chi. ??? Ballet barre. Follow these instructions at home: How to get started ??? Talk with your health care provider about: ??? What types of activities are safe for you. ??? If you should check your pulse or take other precautions during physical activity. ??? Get a calendar. Write down a schedule and plan for your new routine. ??? At the start of your workout, as well as at the end, remember to warm up and cool down to allowa gradual increase or decrease in heart rate and breathing. ??? If you have not been active, begin with sessions that last 10???15 minutes. Gradually work up to sessions that last 20???30 minutes, 5 times a week. Follow all of your health care provider's recommendations. ??? Take time to find out what works for you. Consider the following: ??? Join a community program, such as a biking group, yoga class, local gym, or swimming pool membership. ??? Be active on your own by downloading free workout applications on a smartphone or other devices, or by purchasing workout DVDs. ??? Be patient with yourself. It takes time to build up strength and lung capacity. Safety ??? Exercise in an indoor, climate-controlled facility, as told by your health care provider. You may need to do this if: ??? There are extreme outdoor conditions, such as heat, humidity, or cold. ??? There is an air pollution advisory. Your local news, board of health, or hospital can provide information on air quality. ??? Take extra precautions as told by your health care provider. This may include: ??? Monitoring your heart rate. ??? Avoiding heavy lifting. ??? Understanding how your medicines can affect you during physical activity. Certain medicines maycause heat intolerance or changes in blood sugar. ??? Slowing down to rest when you need to. ??? Keeping nitroglycerin spray and tablets with you at all times if you have angina. Use them as told to prevent and treat symptoms. ??? Drink plenty of water before, during, and after physical activity. ??? Know what symptoms may be signs of a problem and stop physical activity right away if you have any of those symptoms. Where to find more information [place] [employer]: www.heart.org [place] Department of Health and Human Services: www.health.gov Get help right away if you have any of the following during exercise: ??? Chest pain, shortness of breath, or feel very tired. ??? Pain in the arm, shoulder, neck, or jaw. ??? You feel weak, dizzy, or light-headed. ??? An irregular heart rate, or your heart rate is greater than 100 beats per minute (bpm) before exercise. These symptoms may represent a serious problem that is an emergency. Do not wait to see if the symptoms go away. Get medical help right away. Call your local emergency services (911 in the [place] Do not drive yourself to the hospital. Summary ??? Physical activity has many benefits, especially if you have heart disease. ??? Before starting an activity program, talk with your health care provider about how often to be active and what type of activity is safe for you. ??? Your physical activity plan may include moderate or vigorous aerobic activity, strengthening activities, and flexibility. ??? Know what symptoms may be signs of a problem. Stop physical activity right away and call emergency services (911 in the [place] if you have any of those symptoms. This information is not intended to replace advice given to you by your health care provider. Make sure you discuss any questions you have with your health care provider. Document Revised: 08/22/2021 Document Reviewed: 08/22/2021 [employer] Patient Education ?? 2023 [employer]. 11/12/2024 10:10:37 DASH Eating Plan DASH Eating Plan DASH stands for Dietary Approaches to Stop Hypertension. The DASH eating plan is a healthy eating plan that has been shown to: ??? Lower high blood pressure (hypertension). ??? Reduce your risk for type 2 diabetes, heart disease, and stroke. ??? Help with weight loss. What are tips for following this plan? Reading food labels ??? Check food labels for the amount of salt (sodium) per serving. Choose foods with less than 5 percent of the Daily Value (DV) of sodium. In general, foods with less than 300 milligrams (mg) of sodium per serving fit into this eating plan. ??? To find whole grains, look for the word whole as the first word in the ingredient list. Shopping ??? Buy products labeled as low-sodium or no salt added. ??? Buy fresh foods. Avoid canned foods and pre-made or frozen meals. Cooking ??? Try not to add salt when you cook. Use salt-free seasonings or herbs instead of table salt or sea salt. Check with your health care provider or pharmacist before using salt substitutes. ??? Do not clay foods. Cook foods in healthy ways, such as baking, boiling, grilling, roasting, or broiling. ??? Cook using oils that are good for your heart. These include olive, canola, avocado, soybean, and sunflower oil. Meal planning ??? Eat a balanced diet. This should include: ??? 4 or more servings of fruits and 4 or more servings of vegetables each day. Try to fill half ofyour plate with fruits and vegetables. ??? 6???8 servings of whole grains each day. ??? 6 or less servings of lean meat, poultry, or fish each day. 1 oz is 1 serving. A 3 oz (85 g) serving of meat is about the same size as the palm of your hand. One egg is 1 oz (28 g). ??? 2???3 servings of low-fat dairy each day. One serving is 1 cup (237 mL). ??? 1 serving of nuts, seeds, or beans 5 times each week. ??? 2???3 servings of heart-healthy fats. Healthy fats called omega-3 fatty acids are found in foods such as walnuts, flaxseeds, fortified milks, and eggs. These fats are also found in cold-water fish, such as sardines, salmon, and mackerel. ??? Limit how much you eat of: ??? Canned or prepackaged foods. ??? Food that is high in trans fat, such as fried foods. ??? Food that is high in saturated fat, such as fatty meat. ??? Desserts and other sweets, sugary drinks, and other foods with added sugar. ??? Full-fat dairy products. ??? Do not salt foods before eating. ??? Do not eat more than 4 egg yolks a week. ??? Try to eat at least 2 vegetarian meals a week. ??? Eat more home-cooked food and less restaurant, buffet, and fast food. Lifestyle ??? When eating at a restaurant, ask if your food can be made with less salt or no salt. ??? If you drink alcohol: ??? Limit how much you have to: ??? 0???1 drink a day if you are female. ??? 0???2 drinks a day if you are male. ??? Know how much alcohol is in your drink. In the [place] one drink is one 12 oz bottle of beer (355mL), one 5 oz glass of wine (148 mL), or one 1?? oz glass of hard liquor (44 mL). General information ??? Avoid eating more than 2,300 mg of salt a day. If you have hypertension, you may need to reduceyour sodium intake to 1,500 mg a day. ??? Work with your provider to stay at a healthy body weight or lose weight. Ask what the best weight range is for you. ??? On most days of the week, get at least 30 minutes of exercise that causes your heart to beat faster. This may include walking, swimming, or biking. ??? Work with your provider or dietitian to adjust your eating plan to meet your specific calorie needs. What foods should I eat? Fruits All fresh, dried, or frozen fruit. Canned fruits that are in their natural juice and do not have sugar added to them. Vegetables Fresh or frozen vegetables that are raw, steamed, roasted, or grilled. Low- sodium or reduced-sodiumtomato and vegetable juice. Low-sodium or reduced-sodium tomato sauce and tomato paste. Low-sodium or reduced-sodium canned vegetables. Grains Whole-grain or whole-wheat bread. Whole-grain or whole-wheat pasta. Brown rice. Oatmeal. Quinoa. Bulgur. Whole-grain and low-sodium cereals. Berta bread. Low- fat, low-sodium crackers. Whole-wheat flour tortillas. Meats and other proteins Skinless chicken or turkey. Ground chicken or turkey. Pork with fat trimmed off. Fish and seafood. Egg whites. Dried beans, peas, or lentils. Unsalted nuts, nut butters, and seeds. Unsalted canned beans. Lean cuts of beef with fat trimmed off. Low-sodium, lean precooked or cured meat, such as sausages or meat loaves. Dairy Low-fat (1%) or fat-free (skim) milk. Reduced-fat, low-fat, or fat-free cheeses. Nonfat, low-sodiumricotta or cottage cheese. Low-fat or nonfat yogurt. Low-fat, low-sodium cheese. Fats and oils Soft margarine without trans fats. Vegetable oil. Reduced-fat, low-fat, or light mayonnaise and salad dressings (reduced-sodium). Canola, safflower, olive, avocado, soybean, and sunflower oils. Avocado. Seasonings and condiments Herbs. Spices. Seasoning mixes without salt. Other foods Unsalted popcorn and pretzels. Fat-free sweets. The items listed above may not be all the foods and drinks you can have. Talk to a dietitian to learn more. What foods should I avoid? Fruits Canned fruit in a light or heavy syrup. Fried fruit. Fruit in cream or butter sauce. Vegetables Creamed or fried vegetables. Vegetables in a cheese sauce. Regular canned vegetables that are not marked as low-sodium or reduced-sodium. Regular canned tomato sauce and paste that are not marked as low-sodium or reduced-sodium. Regular tomato and vegetable juices that are not marked as low-sodium or reduced-sodium. Pickles. Olives. Grains Baked goods made with fat, such as croissants, muffins, or some breads. Dry pasta or rice meal packs. Meats and other proteins Fatty cuts of meat. Ribs. Fried meat. Francis. Bologna, salami, and other precooked or cured meats, such as sausages or meat loaves, that are not lean and low in sodium. Fat from the back of a pig (fatback). Bratwurst. Salted nuts and seeds. Canned beans with added salt. Canned or smoked fish. Whole eggs or egg yolks. Chicken or turkey with skin. Dairy Whole or 2% milk, cream, and rfwk-vsa-gjus. Whole or full-fat cream cheese. Whole-fat or sweetened yogurt. Full-fat cheese. Nondairy creamers. Whipped toppings. Processed cheese and cheese spreads. Fats and oils Butter. Stick margarine. Lard. Shortening. Ghee. Francis fat. Tropical oils, such as coconut, palm kernel, or palm oil. Seasonings and condiments Onion salt, garlic salt, seasoned salt, table salt, and sea salt. Worcestershire sauce. Tartar sauce. Barbecue sauce. Teriyaki sauce. Soy sauce, including reduced-sodium soy sauce. Steak sauce. Canned and packaged gravies. Fish sauce. Oyster sauce. Cocktail sauce. Store-bought horseradish. Ketchup.Mustard. Meat flavorings and tenderizers. Bouillon cubes. Hot sauces. Pre-made or packaged marinades. Pre-made or packaged taco seasonings. Relishes. Regular salad dressings. Other foods Salted popcorn and pretzels. The items listed above may not be all the foods and drinks you should avoid. Talk to a dietitian angelika more. Where to find more information ??? National Heart, Lung, and Blood [place] (NHLBI): nhlbi.nih.gov ??? [place] Heart Association (AHA): heart.org ??? Academy of Nutrition and Dietetics: eatright.org ??? National Kidney Foundation (NKF): kidney.org This information is not intended to replace advice given to you by your health care provider. Make sure you discuss any questions you have with your health care provider. Document Revised: 03/28/2023 Document Reviewed: 03/28/2023 [employer] Patient Education ?? 2023 [employer] 11/12/2024 10:10:13 Atrial Fibrillation, Yiee-ju-Wlsu Atrial Fibrillation Atrial fibrillation (AFib) is a type of heartbeat that is irregular or fast. If you have AFib, yourheart beats without any order. This makes it hard for your heart to pump blood in a normal way. AFib may come and go, or it may become a long-lasting problem. If AFib is not treated, it can put you at higher risk for stroke, heart failure, and other heart problems. What are the causes? AFib may be caused by diseases that damage the heart's electrical system. They include: ??? High blood pressure. ??? Heart failure. ??? Heart valve diseases. ??? Heart surgery. ??? Diabetes. ??? Thyroid disease. ??? Kidney disease. ??? Lung diseases, such as pneumonia or COPD. ??? Sleep apnea. Sometimes the cause is not known. What increases the risk? You are more likely to develop AFib if: ??? You are older. ??? You exercise often and very hard. ??? You have a family history of AFib. ??? You are male. ??? You are . ??? You are overweight. ??? You smoke. ??? You drink a lot of alcohol. What are the signs or symptoms? Common symptoms of this condition include: ??? A feeling that your heart is beating very fast. ??? Chest pain or discomfort. ??? Feeling short of breath. ??? Suddenly feeling light-headed or weak. ??? Getting tired easily during activity. ??? Fainting. ??? Sweating. In some cases, there are no symptoms. How is this treated? Medicines to: ??? Prevent blood clots. ??? Treat heart rate or heart rhythm problems. ??? Using devices, such as a pacemaker, to correct heart rhythm problems. ??? Doing surgery to remove the part of the heart that sends bad signals. ??? Closing an area where clots can form in the heart (left atrial appendage). In some cases, your doctor will treat other underlying conditions. Follow these instructions at home: Medicines ??? Take knbe-ryp-gvvycob and prescription medicines only as told by your doctor. ??? Do not take any new medicines without first talking to your doctor. ??? If you are taking blood thinners: ??? Talk with your doctor before taking aspirin or NSAIDs, such as ibuprofen. ??? Take your medicines as told. Take them at the same time each day. ??? Do not do things that could hurt or bruise you. Be careful to avoid falls. ??? Wear an alert bracelet or carry a card that says you take blood thinners. Lifestyle ??? Do not smoke or use any products that contain nicotine or tobacco. If you need help quitting, ask your doctor. ??? Eat heart-healthy foods. Talk with your doctor about the right eating plan for you. ??? Exercise regularly as told by your doctor. ??? Do not drink alcohol. ??? Lose weight if you are overweight. General instructions ??? If you have sleep apnea, treat it as told by your doctor. ??? Do not use diet pills unless your doctor says they are safe for you. Diet pills may make heart problems worse. ??? Keep all follow-up visits. Your doctor will check your heart rate and rhythm regularly. Contact a doctor if: ??? You notice a change in the speed, rhythm, or strength of your heartbeat. ??? You are taking a blood-thinning medicine and you get more bruising. ??? You get tired more easily when you move or exercise. ??? You have a sudden change in weight. Get help right away if: ??? You have pain in your chest. ??? You have trouble breathing. ??? You have side effects of blood thinners, such as blood in your vomit, poop (stool), or pee (urine), or bleeding that cannot stop. ??? You have any signs of a stroke. BE FAST is an easy way to remember the main warning signs: ??? B - Balance. Dizziness, sudden trouble walking, or loss of balance. ??? E - Eyes. Trouble seeing or a change in how you see. ??? F - Face. Sudden weakness or loss of feeling in the face. The face or eyelid may droop on one side. ??? A - Arms.Weakness or loss of feeling in an arm. This happens suddenly and usually on one side of the body. ??? S - Speech. Sudden trouble speaking, slurred speech, or trouble understanding what people say. ??? T - Time.Time to call emergency services. Write down what time symptoms started. ??? You have other signs of a stroke, such as: ??? A sudden, very bad headache with no known cause. ??? Feeling like you may vomit (nausea). ??? Vomiting. ??? A seizure. These symptoms may be an emergency. Get help right away. Call 911. ??? Do not wait to see if the symptoms will go away. ??? Do not drive yourself to the hospital. This information is not intended to replace advice given to you by your health care provider. Make sure you discuss any questions you have with your health care provider. Document Revised: 11/28/2022 Document Reviewed: 11/28/2022 [employer] Patient Education ?? 2023 [employer]. Follow Up Care 11/11/2024 09:32:21 With:Estrella PETERS, BRIAN Aguilar Address: [address] [place] [id number] [phone] When:11/27/2024 15:30:00 Comments:Keep scheduled appointment With:Ashok Patterson MD Address: [address] [place] [id number]- When:1 to 2 weeks Comments:Call for followup appointmentCall physician if symptoms worsen Physician Emergency department Note * Emiliano Bravo DO: MODIFY, MODIFY, PERFORM, MODIFY, MODIFY Event Display: ED Note-Physician Authored Date: [id number] Basic Information Time Seen: Emiliano Bravo DO ??11/11/2024 09:39 Chief Complaint pt c/o midsternal cp that started this morning that lasted 20 mins and resolved. pt does also c/o sob. History of Present Illness Patient is a 59-year-old male??history of??partial lobectomy of his left lung back in 2012??[facility] for a ruptured bleb. For evaluation of??lower chest pain??and some shortness of breath??started this morning when he woke up.?? Lasted about 20 minutes and he really indicates epigastric areas where he is having pain. ??It was localized here did not radiate anywhere.?? He is feeling fatigued when he walked outside. ??Found to be tachycardic??in the emergency department with heart rate in the 190s??and initially hypotensive as blood pressures improved. ??He??denies any history of coronary artery disease. ??Denies any cardiac conditions. ??No history of atrial fibrillation or atrial flutter. Review of Systems Constitutional: no fever, no chills, no sweats, no weakness HEENT: no sore throat, ear pain, sinus congestion?? Respiratory: no SOB, no cough, no orthopnea, no wheezing?? Cardiovascular: no chest pain, no palpitations, no edema?? Abdomen: no pain, distension, no n/v or diarrhea?? Extremities: no swelling?? Neurological: no dizziness, confusion, headache?? Additional ROS info: Except as noted above in the above review of systems and in the history of present illness all other systems have been reviewed and are negative or noncontributory??constitutional: Physical Exam Vitals & Measurements HR:??207(Peripheral)?? RR:??24?? BP:??135/100?? SpO2:??96%?? HT:??187??cm?? WT:??114.9??kg?? BMI:??32.86?? Constitutional: No acute distress, nontoxic, non ill appearing?? Heart: Tachycardic rate with regular regular rhythm no murmurs Rubs Lungs: clear to auscultation bilaterally without wheezes, rales or rhonchi?? Abdomen: soft, nontender, nondistended abdomen?? Extremities: warm and dry bilaterally without pitting edema?? Neurological: awake, alert answers questions appropriately?? Medical Decision Making ?? Shows atrial fibrillation with RVR heart rate 76 bpm??no significant ST elevation ST depression ?? Chest x-ray reviewed, no evidence of pneumothorax. ?? Patient given 6 mg adenosine and 12 without??any successful conversion.?? Cardizem bolus and infusion for rate control.?? Obtain cardiac workup to assess for any evidence of decompensated CHF. ?? Labs significant for??thrombocytopenia platelets 132 monitor glycemia glucose 390 otherwise unremarkable. ??Chest x-ray does not show any??pulmonary??edema or acute findings.?? Patient was rate controlled with Cardizem here.?? We discussed need for admission for further management.?? This patient was admitted for further management. ?? I spent greater than 35 minutes critical care team. ??Patient Assessment/Plan 1.??Atrial fibrillation??(I48.91: Unspecified atrial fibrillation) 2.??Hyperglycemia??(R73.9: Hyperglycemia, unspecified) 3.??Thrombocytopenia??(D69.6: Thrombocytopenia, unspecified) 4.??Alcohol use??(F10.90: Alcohol use, unspecified, uncomplicated) 5.??Chronic GERD??(K21.9: Gastro-esophageal reflux disease without esophagitis) 6.??Obesity??(E66.9: Obesity, unspecified) Orders: adenosine, 12 mg = 4 mL, Soln-IV, IV Push, Once, Stop date 11/11/24 9:55:00 EDT, Start date 11/11/24 9:55:00 EDT adenosine, 6 mg = 2 mL, Soln-IV, IV Push, Once, Stop date 11/11/24 9:47:00 EDT, STAT, Start date 11/11/24 9:47:00 EDT, 11/11/24 9:47:00 EDT aspirin, 162 mg = 2 tab(s), Tab-Chew, Oral, Once, Stop date 11/11/24 9:47:00 EDT, STAT, Start date 11/11/24 9:47:00 EDT, 11/11/24 9:47:00 EDT diltiazem, 15 mg = 3 mL, Soln-IV, IV Push, Once, Stop date 11/11/24 9:58:00 EDT, NOW, Start date 11/11/24 9:58:00 EDT, Infuse over 2 minute(s), 11/11/24 9:58:00 EDT diltiazem, 20 mg = 4 mL, Soln-IV, IV Push, Once, Stop date 11/11/24 10:31:00 EDT, NOW, Start date 11/11/24 10:31:00 EDT, Infuse over 2 minute(s), 11/11/24 10:31:00 EDT Sodium Chloride 0.9% intravenous solution 1,000 mL, 1,000 mL, IV, KVO, STAT, Start date 11/11/24 9:47:00 EDT, Total volume (mL): 1,000, 114.9 kg, 2.44, m2 Basic Metabolic Panel CBC w/ Auto Diff ECG 12 Lead Adult ED Cardiac Monitoring ED Physician consult Hospitalist for continued care eGFR Extra SST Tube Magnesium Level Oxygen Saturation Oxygen Therapy PT & PTT Saline Lock Insert Troponin 0 Hr. Troponin 1 Hr. TSH With T4fr Reflex XR Chest Single View Disposition Plan Discharge Prescription List Prescriptions No active prescription medications Follow-up No qualifying data available Problem List/Past Medical History Ongoing No qualifying data Historical No qualifying data Procedure/Surgical History Arthroscopy of knee (08/05/2020), Partial lobectomy of lung (07/15/2012), Rotator cuff repair. Medications Inpatient adenosine 3 mg/mL IV Tracey 2 mL, 6 mg= 2 mL, IV Push, Once aspirin 81 mg Chew Tab, 162 mg= 2 tab(s), Oral, Once Sodium Chloride 0.9% IV Tracey 1000 mL 1,000 mL, 1000 mL, IV Home Colace 100 mg Cap, 100 mg= 1 cap(s), Oral, BID, PRN meloxicam 15 mg Tab, 15 mg= 1 tab(s), Oral, Daily [place] 325 mg-5 mg oral tablet, See Instructions, PRN Pantoprazole [address] Tab, 40 mg= 1 tab(s), Oral, Daily Allergies No Known Medication Allergies Social History Alcohol - Medium Risk, 08/05/2020 Current, Beer, 1-2 times per week, 07/26/2020 Substance Abuse - Denies Substance Abuse, 07/26/2020 Tobacco - Denies Tobacco Use, 07/26/2020 Lab Results WBC: 8.3 E9/L (11/11/24 10:02:00) RBC: 5.6 E12/L (11/11/24 10:02:00) HGB: 16.7 gm/dL (11/11/24 10:02:00) Hct:??49.5 %??High (11/11/24 10:02:00) MCV: 89.2 fL (11/11/24 10:02:00) MCH: 30.1 pg (11/11/24 10:02:00) MCHC: 33.8 gm/dL (11/11/24 10:02:00) RDW: 13.7 % (11/11/24 10:02:00) Platelet:??132 E9/L??Low (11/11/24 10:02:00) MPV: 10.1 fL (11/11/24 10:02:00) Neutro Auto: 67.3 % (11/11/24 10:02:00) Lymph Auto: 22.7 % (11/11/24:02:00) [place] Auto: 8.3 % (11/11/24:02:00) Eos Auto: 1.1 % (11/11/24 10:02:00) Basophil Auto: 0.6 % (11/11/24:02:00) Neutro Absolute: 5.6 E9/L (11/11/24 10:02:00) Lymph Absolute: 1.9 E9/L (11/11/24 10:02:00) [place] Absolute: 0.7 E9/L (11/11/24:02:00) Eos Absolute: 0.1 E9/L (11/11/24 10:02:00) Basophil Absolute: 0 E9/L (11/11/24 10:02:00) PT: 11.3 second(s) (11/11/24::00) INR: 1.01 (11/11/24::00) PTT: 33.2 second(s) (11/11/24 10:02:00) Glucose Lvl:??290 mg/dL??High (11/11/24 10:02:00) BUN: 15 mg/dL (11/11/24 10:02:00) Creatinine: 1.2 mg/dL (11/11/24 10:02:00) eGFR: 69 mL/min/1.73 m2 (11/11/24:02:00) BUN/Creat Ratio: 12 (11/11/24 10:02:00) Sodium Lvl: 138 mmol/L (11/11/24 10:02:00) Potassium Lvl: 3.9 mmol/L (11/11/24 10:02:00) Chloride: 107 mmol/L (11/11/24 10:02:00) CO2: 22 mmol/L (11/11/24 10:02:00) AGAP: 13 mEq/L (11/11/24 10:02:00) Calcium Lvl: 9.2 mg/dL (11/11/24 10:02:00) Magnesium: 1.9 mg/dL (11/11/24 10:02:00) Troponin HS: 25.7 pg/mL (11/11/24 10:52:00) Diagnostic Results XR Chest Single View ?? 11/11/24 10:24:33 IMPRESSION: NO EVIDENCE OF ACTIVE CARDIOPULMONARY DISEASE, BY PORTABLE CHEST RADIOGRAPHY. ? EXAM: XR Chest Single View ?? DATE: 11/11/2024 9:48 AM ?? CLINICAL HISTORY: Chest pain. ?? COMPARISON: 07/26/2020. ?? TECHNIQUE: A portable upright AP radiograph of the chest was obtained. ?? FINDINGS: ?? There is no developing pulmonary infiltrate, cardiomegaly, pleural effusion, vascular congestion, pneumothorax, or other significant changes identified. ?? Postoperative changes of the left lung apex with pleural and parenchymal scarring and mild diffuse coarsening of the bronchovascular structures are again noted. ? Ordering Provider: Emiliano Bravo ?? Signed By: Yury Pascal MD Electronically Signed By: Emiliano Bravo DO Date and Time Signed: 11/11/24 18:16 EDT Consult note * Estrella PETERS, Lauren: PERFORM Event Display: Consultation Note Authored Date: [id number] Chief Complaint pt c/o midsternal cp that started this morning that lasted 20 mins and resolved. pt does also c/o sob. History of Present Illness Rick Jenkins is a 59-year-old male with history??of GERD, dyspnea. ??He did have partial lobectomy??in 2012??due to left lung bleb. He is reformed smoker of less than 10 pack per history.?? He does drink??alcohol daily??1-2 beers per day.?? Patient was admitted for scheduled sooner??11/11/2024 with complaints of chest discomfort??that started earlier this morning when he woke up.?? He had associated??fatigue??and shortness of breath.?? On arrival patient was afebrile,??tachycardic??greater than 200 bpm, normotensiv ?? Cardiology consulted regarding further input.?? When seen in the morning patient was feeling fine. ??He denies any prior history of A-fib/stroke or strokelike symptoms.?? He is prediabetic. ??No prior history of hypertension.?? 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 He??does drink beer on daily basis??and??he does not??drink enough water. Review of Systems Constitutional:??Positive fatigue Eye: ??Negative. ?? Ear/Nose/Mouth/Throat: ??Negative. ?? Respiratory:??Positive shortness of breath??that is now resolved Cardiovascular:??Positive chest pain that is now resolved. ?? Gastrointestinal:??Negative Genitourinary: ??Negative. ?? Hematology/Lymphatics: ??Negative. ?? Endocrine: ??Negative. ?? Immunologic:?Negative Musculoskeletal: ??Negative. ?? Integumentary: ??Negative. ?? Neurologic: ??Alert and oriented X4. ?? Psychiatric: ??Negative. ?? Physical Exam Vitals & Measurements T:??36.5?C(Oral)?? TMIN:??36.2?C(Oral)?? TMAX:??36.8?C(Oral)?? HR:??63(Monitored)?? RR:??16?? BP:??114/80?? SpO2:??99%?? HT:??187.96??cm?? WT:??106.1??kg?? Pleasant no acute distress General:?alert,?no acute??distress Neck: Supple, ??noJVD ?? Cardiovascular:?regular??rate and rhythm,??no??murmur?normal??peripheral perfusion Respiratory: Lungs?CTAB, respirations?non labored Extremities:??no??edema left lower extremity.??no??edema right lower extremity Neurological: oriented?x 4, LOC?appropriate for age,??speech??normal Skin: Warm, dry, intact- no rash or concerning lesions Assessment/Plan 1.??Atrial fibrillation??(I48.91: Unspecified atrial fibrillation) Currently back in sinus rhythm.?? I would recommend to continue current management. ??I had long discussion with the patient regarding the importance of quitting/minimizing EtOH abuse. ??Maintain adequate hydration with water.?? Patient needs to be??tested for sleep apnea as an outpatient. ??Weightloss program.?? He will need to have stress test that can potentially be done as an outpatient. ?? Regarding anticoagulation??his Jun VASc score is 0??however we have to watch for his??sugar??condition as he is??prediabetic.?? Patient already thrombocytopenic. ??As his score is 0 and his thrombocytopenia I think??we can hold off on anticoagulation??but as mentioned above we need to keep an eye on his blood sugar.?? Patient would benefit from outpatient monitor??and I advised him to get the??smart watch??with A-fib??detection??feature. 2.??Hyperglycemia??(R73.9: Hyperglycemia, unspecified) Exercise program??per primary team management 3.??Thrombocytopenia??(D69.6: Thrombocytopenia, unspecified) 4.??Alcohol use??(F10.90: Alcohol use, unspecified, uncomplicated) 5.??Chronic GERD??(K21.9: Gastro-esophageal reflux disease without esophagitis) 6.??Obesity??(E66.9: Obesity, unspecified) In summary patient can go home??he needs to follow-up with us in the office??for monitor and stresstest??discussed with the patient??thank you for the consult Problem List/Past Medical History Ongoing No qualifying data Historical No qualifying data Procedure/Surgical History Arthroscopy of knee (08/05/2020), Partial lobectomy of lung (07/15/2012), Rotator cuff repair. Medications Inpatient acetaminophen 325 mg Tab, 650 mg= 2 tab(s), Oral, q6hr, PRN Dextrose 50% Soln-IV, 50 mL, IV Push, q15min, PRN diltiazem additive 100 mg [15 mg/hr] + Sodium Chloride 0.9% intravenous solution 100 mL glucagon recombinant 1 mg Inj, 1 mg= 1 EA, IntraMuscular, q15min, PRN glucose Oral gel, 15 gm= 32 mL, Oral, q15min, PRN Insulin Lispro Low Dose (Sensitive) Sliding Scale, 0-8 Unit(s), SubCutaneous, QIDACHS Pantoprazole [address] Tab, 40 mg= 1 tab(s), Oral, Daily Sodium Chloride 0.9% IV Tracey 1000 mL 1,000 mL, 1000 mL, IV Zofran 4 mg/2 mL Injection, 4 mg= 2 mL, IV Push, q6hr, PRN Home Pantoprazole [address] Tab, 40 mg= 1 tab(s), Oral, Daily Allergies No Known Medication Allergies Social History Alcohol - Medium Risk, 08/05/2020 Current, Beer, 1-2 times per week, 07/26/2020 Substance Abuse - Denies Substance Abuse, 07/26/2020 Tobacco - Denies Tobacco Use, 07/26/2020 Former smoker, quit more than 30 days ago Tobacco Use:., 11/11/2024 Electronically Signed By: Lauren De La Rosa MD Date and Time Signed: 11/12/24 09:26 EDT History and physical note * Kishor RIVAS, Susie Zheng: MODIFY, MODIFY, PERFORM, MODIFY, MODIFY Event Display: History and Physical Authored Date: [id number] Basic Information 59 year old male without significant cardiac history presenting with chest pain, SOB Chief Complaint pt c/o midsternal cp that started this morning that lasted 20 mins and resolved. pt does also c/o sob. History of Present Illness ?? Rick Jenkins is a 59-year-old male with history??of GERD, dyspnea. ??He did have partial lobectomy??in 2012??due to left lung bleb. He is reformed smoker of less than 10 pack per history.?? He does drink??alcohol daily??1-2 beers per day.?? Patient was admitted for scheduled sooner??11/11/2024 with complaints of chest discomfort??that started earlier this morning when he woke up.?? He had associated??fatigue??and shortness of breath.?? On arrival patient was afebrile,??tachycardic??greater than 200 bpm, normotensive.?No hypoxia on room air.??ECG performed showed A-fib RVR in the 170s. Chest x-ray was done and negative.?? CBC with platelet count 132,??BMP??fairly unremarkable except gluc ose of 290.?? Troponin 18.4, 25.7.?? Patient was given adenosine 6 mg??then a second dose of 12 mg??without improvement.?? Patient was given??IV diltiazem bolus and started on drip??with some improvement in heart rate. ??Repeat EKG confirms??atrial fibrillation.?? Patient was admitted to hospitalist ??service??for further management ?? Review of Systems Constitutional:??Positive fatigue Eye: ??Negative. ?? Ear/Nose/Mouth/Throat: ??Negative. ?? Respiratory:??Positive shortness of breath??that is now resolved Cardiovascular:??Positive chest pain that is now resolved. ?? Gastrointestinal:??Negative Genitourinary: ??Negative. ?? Hematology/Lymphatics: ??Negative. ?? Endocrine: ??Negative. ?? Immunologic:?Negative Musculoskeletal: ??Negative. ?? Integumentary: ??Negative. ?? Neurologic: ??Alert and oriented X4. ?? Psychiatric: ??Negative. ?? Additional ROS info: Except as noted in the above Review of Systems and in the History of Present Illness all other systems have been reviewed and are negative or noncontributory Scoring Chavez Fall Risk Score: 35 (11/11/24) Physical Exam Vitals & Measurements T:??36.6?C(Oral)?? TMIN:??36.6?C(Oral)?? TMAX:??36.8?C(Oral)?? HR:??100(Monitored)?? RR:??13?? BP:??126/85?? SpO2:??98%?? HT:??187.96??cm?? WT:??106.5??kg?? General:??Obese adult male alert, calm, NAD Head:??Normocephalic/atraumatic Eyes:??PERRLA. Conjunctivae and sclerae normal, and intact EOM HEENT: Mucous membrane pink, moist, Normal midline tongue.??Normal oropharynx, and posterior pharynx without lesions or exudates. Neck: Trachea midline, neck supple, no JVD, no bruit Chest:??No chest wall deformity, no chest wall tenderness Lungs:??On room air, lungs are clear Cardio:??Irregularly irregular S1, S2, no murmur appreciated, good perfusion Pulses:??Normal capillary refill Abdomen:??Obese abdomen,, non-distended, non-tender, + BS x4 Musculoskeletal:??No deformity or scoliosis noted. Normal ROM for age. Integumentary: Warm, dry, intact, normal turgor, no rash or concerning lesions noted Extremity:??No clubbing,??no edema Neurologic:??Alert, oriented x??4 follows commands, no obvious focal deficits Mental status: Pleasant & cooperative, normal judgment Lab Results WBC: 8.3 E9/L (11/11/24 10:02:00) RBC: 5.6 E12/L (11/11/24 10:02:00) HGB: 16.7 gm/dL (11/11/24 10:02:00) Hct:??49.5 %??High (11/11/24 10:02:00) MCV: 89.2 fL (11/11/24 10:02:00) MCH: 30.1 pg (11/11/24 10:02:00) MCHC: 33.8 gm/dL (11/11/24 10:02:00) RDW: 13.7 % (11/11/24 10:02:00) Platelet:??132 E9/L??Low (11/11/24 10:02:00) MPV: 10.1 fL (11/11/24 10:02:00) Neutro Auto: 67.3 % (11/11/24 10:02:00) Lymph Auto: 22.7 % (11/11/24 10:02:00) [place] Auto: 8.3 % (11/11/24 10:02:00) Eos Auto: 1.1 % (11/11/24 10:02:00) Basophil Auto: 0.6 % (11/11/24 10:02:00) Neutro Absolute: 5.6 E9/L (11/11/24 10:02:00) Lymph Absolute: 1.9 E9/L (11/11/24 10:02:00) [place] Absolute: 0.7 E9/L (11/11/24 10:02:00) Eos Absolute: 0.1 E9/L (11/11/24 10:02:00) Basophil Absolute: 0 E9/L (11/11/24 10:02:00) PT: 11.3 second(s) (11/11/24 10:02:00) INR: 1.01 (11/11/24 10:02:00) PTT: 33.2 second(s) (11/11/24 10:02:00) Glucose Lvl:??290 mg/dL??High (11/11/24 10:02:00) BUN: 15 mg/dL (11/11/24 10:02:00) Creatinine: 1.2 mg/dL (11/11/24 10:02:00) eGFR: 69 mL/min/1.73 m2 (11/11/24 10:02:00) BUN/Creat Ratio: 12 (11/11/24 10:02:00) Sodium Lvl: 138 mmol/L (11/11/24 10:02:00) Potassium Lvl: 3.9 mmol/L (11/11/24 10:02:00) Chloride: 107 mmol/L (11/11/24 10:02:00) CO2: 22 mmol/L (11/11/24 10:02:00) AGAP: 13 mEq/L (11/11/24 10:02:00) Calcium Lvl: 9.2 mg/dL (11/11/24 10:02:00) Magnesium: 1.9 mg/dL (11/11/24 10:02:00) TSH: 1.86 mcIU/mL (11/11/24 10:02:00) Troponin HS: 25.7 pg/mL (11/11/24 10:52:00) Images ?? (11/11/2024 10:00 EDT XR Chest Single View) IMPRESSION: ??NO EVIDENCE OF ACTIVE CARDIOPULMONARY DISEASE, BY PORTABLE CHEST RADIOGRAPHY. [1] ?? Assessment/Plan 1.??Atrial fibrillation??(I48.91: Unspecified atrial fibrillation) SVT in ER requiring adenosine x 2?? IV diltiazem gtt K 3.9, Mg 1.9 -> supplement given to push > 4/2 ?? Admit to continuous telemetry Continue IV diltiazem gtt to keep HR < 100 [id number] is??0 at current??known risk factors,??given thrombocytopenia??will hold on anticoagulation??for now, defer to cardiology Check TFTs Echocardiogram to evaluate cardiac structure and function [facility] [place] Recommend alcohol cessation, consider out patient sleep study (gender, age, snoring, obesity) ?? 2.??Hyperglycemia??(R73.9: Hyperglycemia, unspecified) AccuCheck AC/HS with SSI coverage Check A1c ?? 3.??Thrombocytopenia??(D69.6: Thrombocytopenia, unspecified) Unknown baseline Trend CBC ?? 4.??Alcohol use??(F10.90: Alcohol use, unspecified, uncomplicated) Daily etoh use, likely contributing to above ?? 5.??Chronic GERD??(K21.9: Gastro-esophageal reflux disease without esophagitis) PPI ?? 6.??Obesity??(E66.9: Obesity, unspecified) Patient's BMI >30. Lifestyle modifications encouraged. Obesity is a pro-inflammatory state likely affecting above medical processes.??Outpatient follow up.? Orders: acetaminophen, 650 mg = 2 tab(s), Tab, Oral, q6hr PRN Pain, Routine, Start date 11/11/24 14:29:00 EDT, 11/11/24 14:29:00 EDT glucagon, 1 mg = 1 EA, Injection, IntraMuscular, q15min PRN Low blood sugar, Routine, Start date 11/11/24 14:32:00 EDT, 11/11/24 14:32:00 EDT glucose, 50 mL, Soln-IV, IV Push, q15min PRN Low blood sugar, Routine, Start date 11/11/24 14:32:00EDT glucose, 15 gm = 32 mL, Gel, Oral, q15min PRN Low blood sugar, Routine, Start date 11/11/24 14:32:00 EDT, 11/11/24 14:32:00 EDT insulin lispro, 0-8 Unit(s), Injection-Insulin, SubCutaneous, QIDACHS, Routine, Start date 11/12/2515:45:00 EDT magnesium sulfate + Generic Diluent 50 mL, 2 gram = 50 mL, Soln-IV, IV Piggyback, Once, Stop date 11/11/24 14:00:00 EDT, Routine, Start date 11/11/24 14:00:00 EDT, 25 mL/hr, Infuse over 2 hour(s) ondansetron, 4 mg = 2 mL, Injection, IV Push, q6hr PRN Nausea, Routine, Start date 11/11/24 14:29:00 EDT, 11/11/24 14:29:00 EDT pantoprazole, 40 mg = 1 tab(s), Tab-EC, Oral, Daily, Routine, Start date 11/12/24 9:00:00 EDT, 11/11/24 15:37:00 EDT perflutren, 1.3 mL, Injection, IV Push, Once, Stop date 11/11/24 16:00:00 EDT, Routine, Start date 11/11/24 16:00:00 EDT potassium chloride, 20 mEq = 1 tab(s), Tab-ER, Oral, Once, Stop date 11/11/24 14:00:00 EDT, Routine, Start date 11/11/24 14:00:00 EDT, 11/11/24 13:15:00 EDT Activity As Tolerated Add on Test Basic Metabolic Panel Below the Knee Intermittent Pneumatic Compression Device Cardiac Monitoring Cardiac Monitoring CBC w/ Auto Diff Communication Order Physician to Nursing Diabetic/Calorie Control Diet Echo Transthoracic Complete Evaluate Need For Continued Telemetry HgbA1c Hypoglycemia Protocol Responsive Patient Hypoglycemia Protocol Unresponsive Patient Intake and Output Magnesium Level Notify Provider Vital Signs Notify Provider Vital Signs Oxygen Protocol Pulse Oximetry Respiratory Protocol Resuscitation Status - Full Routine Capillary Glucose POC Saline Lock Convert From IV Vital Signs Weight ? Patient is admitted to??observation status as anticipate less than 2 midnight stay for management of above at this time Full code DVT prophylaxis: SCDs for now ?? Problem List/Past Medical History Ongoing No qualifying data Historical No qualifying data Procedure/Surgical History Arthroscopy of knee (08/05/2020), Partial lobectomy of lung (07/15/2012), Rotator cuff repair. Medications Inpatient acetaminophen 325 mg Tab, 650 mg= 2 tab(s), Oral, q6hr, PRN Definity Susp Inj, 1.3 mL, IV Push, Once Dextrose 50% Soln-IV, 50 mL, IV Push, q15min, PRN diltiazem additive 100 mg [15 mg/hr] + Sodium Chloride 0.9% intravenous solution 100 mL glucagon recombinant 1 mg Inj, 1 mg= 1 EA, IntraMuscular, q15min, PRN glucose Oral gel, 15 gm= 32 mL, Oral, q15min, PRN Insulin Lispro Low Dose (Sensitive) Sliding Scale, 0-8 Unit(s), SubCutaneous, QIDACHS Sodium Chloride 0.9% IV Tracey 1000 mL 1,000 mL, 1000 mL, IV Zofran 4 mg/2 mL Injection, 4 mg= 2 mL, IV Push, q6hr, PRN Home Colace 100 mg Cap, 100 mg= 1 cap(s), Oral, BID, PRN meloxicam 15 mg Tab, 15 mg= 1 tab(s), Oral, Daily [place] 325 mg-5 mg oral tablet, See Instructions, PRN Pantoprazole [address] Tab, 40 mg= 1 tab(s), Oral, Daily Allergies No Known Medication Allergies Social History Alcohol - Medium Risk, 08/05/2020 Current, Beer, 1-2 times per week, 07/26/2020 Substance Abuse - Denies Substance Abuse, 07/26/2020 Tobacco - Denies Tobacco Use, 07/26/2020 Former smoker, quit more than 30 days ago Tobacco Use:., 11/11/2024 [1]??XR Chest Single View; Yury Pascal MD 11/11/2024 10:00 EDT Electronically Signed By: uSsie Iverson CNP Date and Time Signed: 11/11/24 15:43 EDT Electronically Co-Signed By: Bladimir Palafox DO Date and Time Co-Signed: 11/12/24 07:17 EDT Patient Care team information Care Team Personnel Name: Ashok Patterson MD Position: FT Physician Member Role: Primary Care Physician Address: [address] [place] [address] Telecom: Name: Nayely Sahu Position: [employer] [facility] Office Staff Search Member Role: Other Care Team Related Persons Name: DOTTIE JENKINS Name: DOTTIE JENKINS Name: DOTTIE JENKINS Insurance Providers Guarantor name: RICK Cobian [facility] Health Plan Information #: 1 Payer: [facility] Payer Identifier: [id number] Member Number: NA Group Number: [id number] Subscriber Identifier: [id number] Relationship to Subscriber: spouse Coverage Type: PRIVATE HE[employer] INSURANCE Coverage Verification Date: 24 Telecom: [phone] Address: [facility] [address] [place], [place] [address] Health Plan Information #: 2 Payer: [employer] Payer Identifier: NA Member Number: NA Group Number: [id number] Subscriber Identifier: [id number] Relationship to Subscriber: spouse Coverage Type: PRIVATE HEALTH INSURANCE Coverage Verification Date: 24 Telecom: WILBER Address: [address] [place] [address]-
--- OUTSIDE RECORDS SUMMARY | 2024-11-13 05:30 | XMS_ITS ---
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 Diagnosed with a-fib, No new meds. Was given IV medication that put him back in rhythm Medications Medication SIG (Take, Route, Frequency, Duration) Notes Start Date End Date Status Omeprazole 20 mg TAKE ONE CAPSULE BY MOUTH 30 MINUTES BEFORE MORNING MEAL for 30 Active Diabetic Test Strips test blood sugar on ce daily for 90 days DX:E1109/09/2023 Active Alcohol Prep Pads test blood sugar onc e daily for 90 days DX:E1109/09/2023 Active Diabetic Glucose Meter - test blood suga r once daily for 90 days DX: E1109/09/2023 Active Diabetic Lancets test blood sugar onc e daily for 90 days dx:09/09/2023 Active Social History Tobacco Use: Social History Observation Description Date Details (start date - stop date) Former Smoker NA - NA Tobacco Control (Standard) Question Answer Notes Tobacco use: Former smoker AUDIT-C (Standard) Question Answer Notes Did you have a drink containing alcohol in the p ast year? No Points 0 Interpretation Negative Problems Problem Type SNOMED Code ICD Code Onset Dates Problem Status W/U Status Risk Notes Problem Atrial fibrillation (06229249) Atrial fibrillation (I48.91) Active confirmed Vital Signs Weight 247 lbs 11/13/2024 Height 74 in 11/13/2024 Blood pressure systolic 128 mm Hg 11/14/19 25 Blood pressure diastolic 76 mm Hg 025 BMI 31.71 kg/m2 11/13/2024 Procedures Procedure Date Ordered Date Performed Result Body Sit e Holter Monitor - 3 days up to 14 days 11/13/2024 N/A Encounters Encounter Location Date Provider Diagnosis [facility] [address] [place] [address] 11/13/2024 Mendez Patterson Atrial fibrillation I48.91 Assessments Encounter Date Diagnosis (ICD Code) Assessment Notes Treatment Notes Treatment Clinical Notes Section Notes 11/13/2024 Atrial fibrillation (ICD-10 - I48.91) Plan Of Treatment Pending Test Test Name Order Date Holter Monitor - 3 days up to 14 days Referrals Referral Date Details 11/13/2024 11/13/2024, Samir randolph Progress Notes * Manjeet JENKINSDOB: 4 (59 yo M)Acc No.[id number]:11/13/2024 UNLOCKED PROGRESS NOTE Progress Note Patient: Manjeet ABBOTT Provider: Michelle Patterson ([facility])MD :1965 A ge:59 Y S ex:Male Date:11/13/2024 Address:[facility] [address] [place], [id number] Check In:09:24 AM ESTCheck O ut:10:10 AM EST Subjective: * Chief Complaints: * 1 . Presents to office alone for [facility] follow up. Diagnosed with a-fib. 2. No new meds. Was given IV medication that put him back in rhythm. * HPI: G eneral: Sent home wiht A-fib - converted on his own A\. * ROS: E ENT: hearing changes d enies, denies. v isual changes d enies, denies. n on-healing mouth sores d enies, denies. s wollen glands or neck lumps?denies, denies. h oarseness d enies, denies. s ore throat d enies, denies. d ifficulty swallowing d enies, denies. n ose bleeds d enies, denies. n chaim congestion d enies, denies. e ar ache d enies, denies. e ar discharge d enies, denies.?ringing in ears d enies, denies. l ight sensitivity d enies, denies. e ye pain denies, denies. b lurring d enies, denies. e ye irritation d enies, denies. d ouble vision d enies, denies. v ision loss d enies, denies. G eneral/Constitutional: Sweats: D enies, Denies. F atigue d enies, denies.?Sleep problems d enies, denies. A norexia d enies, denies. M alaise d enies, denies. W eight loss d enies, denies. F atigue or Weakness d enies, denies. F ever or Chills d enies, denies. C ardiovascular: Shortness of Breath w/lying flat d enies, denies. L ightheadedness/dizziness d enies, denies. C hest tightness/ heavy pressure d enies, denies.?Swelling of legs, ankles, or feet d enies, denies. W aking up with shortness of breath denies, denies. C hest pain d enies, denies. P alpitations d enies, denies.?Weight gain d enies, denies. R espiratory: Chronic or frequent cough d enies, denies. C oughing up blood d enies, denies. D ifficulty breathing d enies, denies. P roductive cough?denies, denies. S noring d enies, denies. S hortness of breath that awakens from sleep (PND) d enies, denies. C hest pain d enies, denies. S putum production d enies, denies. W heezing d enies, denies. M usculoskeletal: Joint pain d enies, denies. J oint Fluid d enies, denies. B ack pain d enies, denies. K nee pain d enies, denies. N stacy pain d enies, denies. J oint Stiffness d enies, denies. M uscle cramps d enies, denies. Weakness of muscles d enies, denies. A rthritis d enies, denies. M uscle aches?denies, denies. P ain in shoulder(s) d enies, denies. S wollen joints d enies, denies. * Medical History: * Surgical History: l eft thoracotomy 07-12-2012 , right shoulder rotator cuff repair , left knee repair . * Hospitalization/Major Diagno stic Procedure: A -fib 11/16. * Family History: F ather: . M other: , aneurysm. B rother(s): alive. S ister(s): alive. D mirellaer(s): alive. 2 brother(s) , 2 sister(s) . 2 daughter(s) - healthy. . * Social History: T obacco Use: T obacco Control (Standard) T obacco use: F ormer smoker D rug/Alcohol: A HERLINDA-C (Standard) D id you have a drink containing alcohol in the past year? N o P oints 0 I nterpretation N egative * Medications: T aking Alcohol Prep Pads test blood sugar once daily , Notes to Pharmacist: DX:E11.9, Taking Diabetic Glucose Meter - - test blood sugar once daily , Notes to Pharmacist: DX: E11.9, Taking Diabetic Lancets test blood sugar once daily , Notes to Pharmacist: dx:E11.9, Taking Diabetic Test Strips test blood sugar once daily , Notes to Pharmacist: DX:E11.9, Taking Omeprazole 20 mg Capsule Delayed Release TAKE ONE CAPSULE BY MOUTH 30 MINUTES BEFORE MORNING MEAL , Discontinued Azithromycin 250 MG Tablet 2 tabs today then 1 tab Orally daily , Discontinued dexAMETHasone 6 MG Tablet 1 tablet Orally daily , Discontinued levoFLOXacin 750 MG Tablet 1 tablet Orally Once a day , Discontinued Paxlovid (300/100)(Nirmatrelvir&Ritonavir 300/100) 20 x 150 MG & 10 x 100MG Tablet Therapy Pack 3 tablets Orally Twice a day , Discontinued predniSONE 20 MG Tablet 3 tabs Orally Once a day , Medication List reviewed and reconciled with the patient * Allergies: N .K.D.A. Objective: * Vitals: W t:247lbs, Ht: 74 in, BP:128/76mm Hg, BMI:31.71Index, Ht-cm: 187.96 cm, Wt-k.04 kg. * Examination: P hysical Exam: GENERAL: w ell developed, well nourished, in no acute distress , well developed, well nourished, in no acute distress. HEAD: n ormocephalic/atraumatic , normocephalic/atraumatic.? EYES: p upils equal, round and reactive to light, conjunctivae and sclerae normal , pupils equal, round and reactive to light, conjunctivae and sclerae normal.? EARS: n o deformity or lesion of external ear, canals and TM appear normal bilaterally, TM's intact, not inflamed with normal light reflex, hearing grossly normal to conversational speech , no deformity or lesion of external ear, canals and TM appear normal bilaterally, TM's intact, not inflamed with normal light reflex, hearing grossly normal to conversational speech. NOSE: n o deformity, discharge, inflammation, or lesions , no deformity, discharge, inflammation, or lesions. MOUTH: m ucous membranes moist, normal oropharynx and posterior pharynx without lesions or exudates, tongue normal, dentition normal , mucous membranes moist, normal oropharynx and posterior pharynx without lesions or exudates, tongue normal, dentition normal. NECK: n stacy supple, no masses or palpable cervical nodes, trachea midline, thyroid without nodules, masses, tenderness, or enlargement , neck supple, no masses or palpable cervical nodes, trachea midline, thyroid without nodules, masses, tenderness, or enlargement. CHEST: n o chest wall deformity, no chest wall tenderness , no chest wall deformity, no chest wall tenderness. LUNGS: n ormal respiratory effort and clear to auscultation, no wheezes, rales, or rhonchi, good air exchange , normal respiratory effort and clear to auscultation, no wheezes, rales, or rhonchi, good air exchange. CARDIO: r egular rate and rhythm, normal S1 and S2, nor murmur, rub, or gallop , regular rate and rhythm, normal S1 and S2, nor murmur, rub, or gallop. PULSES: n ormal capillary refill , normal capillary refill.? ABDOMEN: s oft, non-distended, non-tender, no masses , soft, non-distended, non-tender, no masses. MUSCULOSKELETAL: n o deformity or scoliosis noted, normal range of motion, joints normal, no erythema, edema, effusion, or ecchymosis , no deformity or scoliosis noted, normal range of motion, joints normal, no erythema, edema, effusion, or ecchymosis. EXTREMITY: n o clubbing, cyanosis, edema, or deformity with normal ROM in both upper and lower bilateral extremities , no clubbing, cyanosis, edema, or deformity with normal ROM in both upper and lower bilateral extremities. NEUROLOGIC: g rossly normal , grossly normal. SKIN: n o rashes, ulcerations, or suspicious lesions , no rashes, ulcerations, or suspicious lesions. LYMPH NODES: n o cervical adenopathy, nodes normal , no cervical adenopathy, nodes normal. MENTAL STATUS: a lert and oriented x3, normal mood and affect , alert and oriented x3, normal mood and affect. Assessment: * Assessment: 1. A trial fibrillation - I48.91 (Primary) Plan: * Treatment: ? Referral To:Samir Lechuga??Cardiovascular Disease ?Reason: * Procedure Codes: 3 078F DIAST BP < 80 MM HG, 3074F SYST BP LT 130 MM HG * Preventive Medicine: Screenings/Counseling: B AK ACTION PLAN Above Normal BMI Follow-up D ietary management education, guidance, and counseling See treatment section of progress note for complete details of management plan. * * Electronic signature of Mendez Patterson MD, [id number] on 11/16/2024 at 06:44 AM EDT Sign off status: Pending Visit Status: Sofia ABAD (Check Out) * Provider: Michelle Patterson ([facility])MD Date: 0 11/13/2024 Generated for Eitan hoang/Fadi/Bryantransmitting on: 0 11/16/2024 06:44 AM EDT History and Physical Notes * HPI (History of Present Illness) Category Sub-Category Detail Notes Category Not es General Sent home wiht A-fib - converted on his own A\ Examination Category Sub-Category Detail Notes Category Not es Physical Exam GENERAL: well developed, well nourished, in no acute distress , well developed, well nourished, in no acute distress HEAD: normocephalic/atraum atic , normocephalic/atraumatic EYES: pupils equal, round and reactive to light, conjunctivae and sclerae normal , pupils equal, round and reactive to light, conjunctivae and sclerae normal EARS: no deformity or lesi on of external ear, canals and TM appear normal bilaterally, TM's intact, not inflamed with normal light reflex, hearing grossly normal to conversational speech , no deformity or lesion of external ear, canals and TM appear normal bilaterally, TM's intact, not inflamed with normal light reflex, hearing grossly normal to conversational speech NOSE: no deformity, discha rge, inflammation, or lesions , no deformity, discharge, inflammation, or lesions MOUTH: mucous membranes kandace st, normal oropharynx and posterior pharynx without lesions or exudates, tongue normal, dentition normal , mucous membranes moist, normal oropharynx and posterior pharynx without lesions or exudates, tongue normal, dentition normal NECK: neck supple, no mass es or palpable cervical nodes, trachea midline, thyroid without nodules, masses, tenderness, or enlargement , neck supple, no masses or palpable cervical nodes, trachea midline, thyroid without nodules, masses, tenderness, or enlargement CHEST: no chest wall deform ity, no chest wall tenderness , no chest wall deformity, no chest wall tenderness LUNGS: normal respiratory e ffort and clear to auscultation, no wheezes, rales, or rhonchi, good air exchange , normal respiratory effort and clear to auscultation, no wheezes, rales, or rhonchi, good air exchange CARDIO: regular rate and rhy thm, normal S1 and S2, nor murmur, rub, or gallop , regular rate and rhythm, normal S1 and S2, nor murmur, rub, or gallop PULSES: normal capillary ref ill , normal capillary refill ABDOMEN: soft, non-distended, non-tender, no masses , soft, non-distended, non- tender, no masses RECTAL: MUSCULOSKELETAL: no deformity or scol iosis noted, normal range of motion, joints normal, no erythema, edema, effusion, or ecchymosis , no deformity or scoliosis noted, normal range of motion, joints normal, no erythema, edema, effusion, or ecchymosis EXTREMITY: no clubbing, cyanosi s, edema, or deformity with normal ROM in both upper and lower bilateral extremities , no clubbing, cyanosis, edema, or deformity with normal ROM in both upper and lower bilateral extremities NEUROLOGIC: grossly normal , heena ssly normal SKIN: no rashes, ulceratio ns, or suspicious lesions , no rashes, ulcerations, or suspicious lesions LYMPH NODES: no cervical adenopat hy, nodes normal , no cervical adenopathy, nodes normal MENTAL STATUS: alert and oriented x 3, normal mood and affect , alert and oriented x3, normal mood and affect Consultation Request Notes Referral Date Referring Provider Referred Provider Not tonny 11/13/2024 Mendez Patterson Paul
--- OUTSIDE RECORDS SUMMARY | 2024-11-13 06:01 | XMS_ITS ---
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
--- OUTSIDE RECORDS SUMMARY | 2024-11-16 06:44 | XMS_ITS | Clinical Summary ---
Author Organization [facility] Address [id number] [address] [place] [address] Care Team Providers Care Follow Up Specialist Name Role Phone Ashok Patterson MD Primary Care Provider [phone] Allergies No known active allergies Medications pantoprazole (PROTONIX) 20 mg EC tablet Take 20 mg by mouth daily. Active Social History Tobacco Use Types Packs/Day Years Used Date Smoking Tobacco: Never Smokeless Tobacco: Never Alcohol Use Standard Drinks/Week Comments Yes 0 (1 standard drink = 0.6 oz pur e alcohol) rare Childcare Answer Date Recorded Childcare Unknown 09/04/2018 Employment Answer Date Recorded Employment Unknown 09/04/2018 Purpose - Life Answer Date Recorded Purpose and direction in life Unknown Sex and Gender Information Value Date Recorded Sex Assigned at Not on file Legal Sex Male 1:03 PM EDT Gender Identity Not on file Sexual Orientation Not on file Last Filed Vital Signs Vital Sign Reading Time Taken Comments Blood Pressure 125/80 01/15/2018 4:00 PM EDT Pulse 77 01/15/2018 10:34 AM EDT Temperature 36 C (96.8 F) 01/15/2018 2:15 PM EDT Respiratory Rate 14 01/15/2018 2:35 PM EDT Oxygen Saturation 96% 01/15/2018 4:00 PM EDT Inhaled Oxygen Concentration - - Weight 115.7 kg (255 lb) 01/15/2018 10:34 AM EDT Height 188 cm (6' 2 ) 01/15/2018 10:34 AM EDT Body Mass Index 32.74 01/15/2018 10:34 AM EDT Plan of Treatment Not on file Medical Devices Implanted Type Area Barrel Header Device Identifier Shelf Expiration Date Model / Serial / Lot Sut Anch Pushlk Bcmps 3.5x19.5 Ea=Bill Only - [id number] - [id number] Implanted:Qty: 1 on 01/15/2018 by Aneudy Kellogg, at [facility] [place] Left: Shoulder Arthrex 12/16/2018 [id number] / [id number] / [id number] Sut Anch Pushlk Bcmps 3.5x19.5 Ea=Bill Only - [id number] - [id number] Implanted:Qty: 1 on 01/15/2018 by Aneudy Kellogg DO at [facility] [place] Left: Shoulder Arthrex 06/16/2019 [id number] / [id number] / [id number] Suture [place] Swivel - [id number] - [id number] Implanted:Qty: 1 on 01/15/2018 by Aneudy Kellogg DO at [facility] [place] Left: Shoulder Arthrex 08/16/2019 [id number] / [id number] / [id number] Insurance [employer] Care Teams Follow Up Specialist Relationship Specialty Start Date End Date Ashok Patterson MD PCP - General 01/09/18
--- OUTSIDE RECORDS SUMMARY | 2024-11-16 06:45 | XMS_ITS | Patient Health Record ---
Author Organization [facility] in [place] Address [address] [place] [address] Care Team Providers Care Sand Blaster Name Role Phone Mendez Patterson Primary Care Provider [phone] Allergies No Known Allergies Reason For Referral Diagnosis 1 Atrial fibrillation (I48.91) Referral Organization [facility] Referring Provider First Name Mendez Referring Provider Last Name Leonardo Referring Provider Speciality Family [facility] crystal Referred Provider Samir Lechuga Referred Provider Specialty Cardiovascul ar Disease Referral Priority Routine Medications Medication SIG (Take, Route, Frequency, Duration) Notes Start Date End Date Status Omeprazole 20 mg TAKE ONE CAPSULE BY MOUTH 30 MINUTES BEFORE MORNING MEAL for 30 Active Alcohol Prep Pads test blood sugar onc e daily for 90 days DX:E11.09/09/2023 Active Diabetic Glucose Meter - test blood suga r once daily for 90 days DX: 09/09/2023 Active Diabetic Lancets test blood sugar onc e daily for 90 days dx:E1109/09/2023 Active Diabetic Test Strips test blood sugar on ce daily for 90 days DX:09/09/2023 Active Social History Tobacco Use: Social History [...] Problem Status W/U Status Risk Notes Problem Spontaneous tension pneumothorax (259301903) Spontaneous tension pneumothorax (J93.0) Active confirmed Problem Atrial fibrillation (20300251) Atrial fibrillation (I48.91) Active confirmed Problem Acid reflux (846208086) Acid reflux (K21.9) Active confirmed Problem Reflux gastritis (50634057) Reflux gastritis (K29.60) Active confirmed Problem Impingement syndrome of shoulder (525976476) Impingement syndrome of shoulder (M75.40) Active confirmed Problem Scar conditions and fibrosis of skin (503822927) 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 Problem COVID-19 (721804076) COVID-19 (U07.1) Active confirmed Problem Acute left-sided low back pain without sciatica (M54.50) Active confirmed Vital Signs Blood pressure diastolic 76 mm Hg 11/13/2024 Height 74 in 11/13/2024 Blood pressure systolic 128 mm Hg 11/13/2024 Weight 247 lbs 11/13/2024 BMI 31.71 kg/m2 11/13/2024 Procedures Procedure Date Ordered Date Performed Result Body Sit e Holter Monitor - 3 days up to 14 days 11/13/2024 N/A Encounters Encounter Location Date Provider Diagnosis [facility] [address] [place] [address] 12/05/2023 [facility] [address] [place] [address] 11/13/2024 [facility] [address] [place] [phone] 11/13/[address] [facility] [address] [place] [phone] 12/17/2023 Mendez Patterson COVID-[address] [address] 11/13/2024 Mendez Patterson Atrial fibrillation I48.91 Assessments Encounter Date Diagnosis (ICD Code) Assessment Notes Treatment Notes Treatment Clinical Notes Section Notes 12/17/2023 COVID-19 (ICD-10 - U07.1) 11/13/2024 Atrial fibrillation (ICD-10 - I48.91) Plan Of Treatment Pending Test Test Name Order Date COMPREHENSIVE METABOLIC PROFILE WITH GFR 09/03/2023 OCCULT BLOOD, FECAL, IMMUNOASSAY 024 CBC W/AUTO DIFF 09/03/2023 THYROID PANEL (T4/TSH/FREE T3) Holter Monitor - 3 days up to 14 days PSA, SCREENING 09/03/2023 Lipid Panel 09/03/2023 Insurance Providers Payer Name Payer Address Payer Phone Subscriber Number Group Number Insured Name Patient Relationship to Insured Coverage Start Date Coverage End Date [facility] [address] [address] [place] [phone] [id number] Manjeet Blake Self - patient is the insured [facility] [employer] [address] [place] [phone] [id number] Dee Dee Blake Spouse - patient is the spouse of the insured Medical (General) History Surgical History Surgery Date(Month/Year) left thoracotomy 07-12-2012 right shoulder rotator cuff repair left knee repair Hospitalization History Reason Date(Month/Year) A-fib 11/16
--- OUTSIDE RECORDS SUMMARY | 2024-11-16 06:45 | XMS_ITS | Clinical Summary ---
Author Organization [facility] Address [address] [place] [address], [address] [place] [address] Care Team Providers Care Security Operations Specialist Name Role Phone Unavailable Primary Care Provider Unavailabl e Social History Tobacco Use Types Packs/Day Years Used Date Smoking Tobacco: Never Assessed Sex and Gender Information Value Date Recorded Sex Assigned at Not on file Legal Sex Male 6:20 AM EST Gender Identity Not on file Sexual Orientation Not on file Plan of Treatment Not on file
--- OUTSIDE RECORDS SUMMARY | 2024-11-16 06:45 | XMS_ITS | CCD ---
Author Organization [facility] Care Team Providers Care Collections Technician Name Role Phone JUAN ALBERTO PATTERSON Primary Care Unavailable EARNEST MELOL Admitting Unavailable EARNEST MELLO Attending Unavailable BILLY BLACKMAN Consulting Unavailable OUSMANE ANDERSON V Consulting Unavailable MEG REYEZ Admitting Unavailable MEG REYEZ Attending Unavailable JUAN ALBERTO PATTERSON Primary Care Unavailable GAVINO RODRIGUEZ Consulting Unavailable MEG REYEZ Consulting Unavailable Emiliano Bravo Attending Unavailable Bladimir Palafox Attending Unavailable Bladimir Palafox Admitting Unavailable [facility] Cardio, XXXX Consulting Unavailable Bladimir Palafox Admitting Unavailable [facility] Cardio, XXXX Consulting Unavailable MD Zandra Reyna Attending Unavail le Allergies Allergy Classification Reported Allergen(s) Allergy Type Date of Onset Reaction(s) Facility (7 sources) No Known Medication Allergies; Translations: [No Known Medication Allergies] Propensity to adverse reactions (disorder) [facility] Repository Problems Active Problems Problem Classification Problem Date Documented Date Episodic/Chronic Cardiac dysrhythmias (5 sources) Unspecified atrial fibrillation; Translations: [I48.91] Onset: 11-11-2024 Chronic External cause codes: Fall (1 source) Fall [...] Test Name Value Interpretation Reference Range Facility [facility] 11-12-2024 Anion gap [Moles/Vol] 9 mmol/L Normal 6-16 [facility] Comment on above: Performed By: #### 2 [id number] #### [facility] [address] [place] [address] BUN/Creat Ratio 13 No Units Normal 10-20 [facility] Comment on above: Performed By: #### 2 [id number] #### [facility] [address] [place] [address] Calcium [Mass/Vol] 8.9 mg/dL Normal 8.9-11.1 [facility] Comment on above: Performed By: #### 2 [id number] #### [facility] [address] [place] [address] Chloride [Moles/Vol] 105 mmol/L Normal 101-[address] [facility] Comment on above: Performed By: #### 2 [id number] #### [facility] [address] [place] [address] CO2 [Moles/Vol] 27 mmol/L Normal 21-31 [facility] Comment on above: Performed By: #### 2 [id number] #### [facility] [address] [place] [address] Creatinine [Mass/Vol] 1.0 mg/dL Normal 0.5-1.3 [facility] Comment on above: Performed By: #### 2 [id number] #### [facility] [address] [place] [address] Glucose [Mass/Vol] 136 mg/dL Normal 55-199 [facility] Comment on above: Performed By: #### 2 333376 #### [facility] [address] [place] [address] Potassium [Moles/Vol] 4.3 mmol/L Normal 3.5-5.3 [facility] Comment on above: Performed By: #### 2 732850 #### [facility] [address] [place] [address] Sodium [Moles/Vol] 137 mmol/L Normal 135-145 [facility] Comment on above: Performed By: #### 2 [id number] #### [facility] [address] [place] [address] Urea nitrogen [Mass/Vol] 13 mg/dL Normal 5-21 [facility] Comment on above: Performed By: #### 2 [id number] #### [facility] [address] [place] [address] CBC w/ Auto Diffon 5 Basophil Absolute 0.1 E9/L Normal 0.0-0.2 [facility] Comment on above: Performed By: #### 2 [id number] #### [facility] [address] [place] [address] Basophils/100 WBC (Bld) 1.2 % Normal 0.0-2.0 [facility] Comment on above: Performed By: #### 2 715372 #### [facility] [address] [place] [address] Eos Absolute 0.1 E9/L Normal 0.0-0.5 [facility] Comment on above: Performed By: #### 2 168191 #### [facility] [address] [place] [address] Eosinophils/100 WBC (Bld) 1.6 % Normal 0.0-8.0 [facility] Comment on above: Performed By: #### 2 300658 #### [facility] [address] [place] [address] Erythrocyte distribution width (RBC) [Ratio] 14.0 % Normal 10.9-14.2 [facility] Comment on above: Performed By: #### 2 146115 #### [facility] [address] [place] [address] Hematocrit (Bld) [Volume fraction] 45.6 % Normal 37.7-49.0 [facility] Comment on above: Performed By: #### 2 137560 #### [facility] [address] [place] [address] Hemoglobin (Bld) [Mass/Vol] 15.5 g/dL Normal 13.5-17.5 [facility] Comment on above: Performed By: #### 2 652404 #### [facility] [address] [place] [address] Lymph Absolute 1.6 E9/L Normal 1.0-4.0 [facility] Comment on above: Performed By: #### 2 548793 #### [facility] [address] [place] [address] Lymphocytes/100 WBC (Bld) 24.3 % Normal 14.0-50.0 [facility] Comment on above: Performed By: #### 2 849956 #### [facility] [address] [place] [address] MCH (RBC) [Entitic mass] 30.9 pg Normal 27.0-34.0 [facility] Comment on above: Performed By: #### 2 812797 #### [facility] [address] [place] [address] MCHC (RBC) [Mass/Vol] 34.0 g/dL Normal 31.4-36.0 [facility] Comment on above: Performed By: #### 2 491507 #### [facility] [address] [place] [address] MCV (RBC) [Entitic vol] 90.9 fL Normal 80.0-100.0 [facility] Comment on above: Performed By: #### 2 155010 #### [facility] [address] [place] [address] Will Absolute 0.5 E9/L Normal 0.2-1.0 [facility] Comment on above: Performed By: #### 2 841383 #### [facility] [address] [place] [address] Monocytes/100 WBC (Bld) 7.1 % Normal 4.0-14.0 [facility] Comment on above: Performed By: #### 2 972248 #### [facility] [address] [place] [address] Neutro Absolute 4.2 E9/L Normal 2.0-7.5 [facility] Comment on above: Performed By: #### 2 808462 #### [facility] [address] [place] [address] Neutro Auto 65.8 % Normal 36.0-75.0 [facility] Comment on above: Performed By: #### 2 065834 #### [facility] [address] [place] [address] Platelet 107.0 E9/L Low 150.0-500.0 [facility] Comment on above: Performed By: #### 2 599003 #### [facility] [address] [place] [address] Platelet mean volume (Bld) [Entitic vol] 9.2 fL Normal 6.4-10.8 [facility] Comment on above: Performed By: #### 2 564646 #### [facility] [address] [place] [address] RBC 5.0 E12/L Normal 4.3-5.9 [facility] Comment on above: Performed By: #### 2 968268 #### [facility] [address] [place] [address] WBC 6.4 E9/L Normal 4.0-11.0 [facility] Comment on above: Performed By: #### 2 585687 #### [facility] [address] [place] [address] Capillary Glucose POCon 10-24 Glucose [Mass/Vol] 126 mg/dL High 55-99 [facility] Comment on above: Result Comment: Sanjuanita soto RN/MD Performed By: #### 2 [id number] #### [facility] [address] [place] [address] Discharge Note-Nursingon Discharge Note-Nursing Discharge Note-Nursing RICK JENKINS :1965 Visit Date:11/11/2024 Inpatient Discharge Instructions Your Care Team Admitting Physician - Bladimir Palafox DO Consulting Physician - [facility] Cardio, XXXX Reason for Your Visit pt c/o midsternal cp that started this morning that lasted 20 mins and resolved. pt does also c/o sob. Your Diagnosis Atrial fibrillation Hyperglycemia Thrombocytopenia Alcohol use Chronic GERD Obesity Chest pain Shortness of breath Tests Performed Echo Transthoracic w/ Contrast XR Chest Single View This Is Your Medications List pantoprazole (Pantoprazole [address] Tab) Procedure History Arthroscopy of knee (08/05/2020), Partial lobectomy of lung (07/15/2012), Rotator cuff repair. Discharge Vitals Temperature (Oral) 36.5 ???C Heart Rate (Monitored) 63 Respiratory Rate 16 Blood Pressure 114/80 Height 187.96 cm Weight 106.1 kg BMI 30.15 What to do next Instructions From Your Doctor Event Name Event Result Pending Diagnostic Test Results None Discharge Instructions Return to the emergency department if you develop worsening symptoms or have reoccurrence of symptoms that led to your hospitalizationFollow -up with your PCP and marketing production coordinator Previously Scheduled Follow-Up Appointments Saturday 3:30 PM EDT With: Lauren De La Rosa MD Where[facility] Follow Up Appointments after Discharge Follow Up with Estrella PETERS, Lauren, CAR When: 11/27/2024 03:30 PM EDT Comments: Keep scheduled appointment Where: [address] [place] [address]- [phone] Follow Up with Juan Alberto Patterson MD When: Within 1 to 2 weeks Comments: Call for followup appointment Call physician if symptoms worsen Where: [address] [place] [address]- Medications What How Much When Instructions Next Dose Unchanged pantoprazole (Pantoprazole [address] Tab) 1 Tablets By Mouth Every day 11/13 @9am Test Results CBC BMP WBC: 6.4 E9/L (11/12/24 05:22:00) Glucose Lvl: 136 mg/dL (11/12/24 05:22:00) RBC: 5 E12/L (11/12/24 05:22:00) BUN: 13 mg/dL (11/12/24 05:22:00) HGB: 15.5 gm/dL (11/12/24 05:22:00) Creatinine: 1 mg/dL (11/12/24 05:22:00) Hct: 45.6 % (11/12/24 05:22:00) BUN/Creat Ratio: 13 (11/12/24 05:22:00) MCV: 90.9 fL (11/12/24 05:22:00) Sodium Lvl: 137 mmol/L (11/12/24 05:22:00) MCH: 30.9 pg (11/12/24 05:22:00) Potassium Lvl: 4.3 mmol/L (11/12/24 05:22:00) MCHC: 34 gm/dL (11/12/24 05:22:00) Chloride: 105 mmol/L (11/12/24 05:22:00) RDW: 14 % (11/12/24 05:22:00) CO2: 27 mmol/L (11/12/24 05:22:00) Platelet: 107 E9/L Low (11/12/24 05:22:00) AGAP: 9 mEq/L (11/12/24 05:22:00) MPV: 9.2 fL (11/12/24 05:22:00) Calcium Lvl: 8.9 mg/dL (11/12/24 05:22:00) Allergies No Known Medication Allergies Problems Ongoing - Any problem that you are currently receiving treatment for. Alcohol use Chronic GERD Obesity Education Materials Physical Activity With Heart Disease Being active has many benefits, especially if you have heart disease. Physical activity can help you do more and feel healthier. Start slowly, and increase the amount of time you spend being active. You should aim for physical activity that: ??? Makes you breathe harder and raises your heart rate (aerobic activity). Try to get at least 150 minutes of aerobic activity each week. This is [...] depending on how hard you are working. Moderate-inten (more content not included)... Normal [facility] Inpatient Clinical Summaryon 11-12-2024 Inpatient Clinical Summary Inpatient Clinical Summary [address] [address] Clinical Summary Person Information: Name: RICK JENKINS Age: 59 Years : 1965 Sex: Male PCP: Juan Alberto Patterson MD Marital Status: Phone: [phone] Race: White Ethnicity: Non- or Language: [place] Visit Id: Visit Reason: Shortness of breath; Chest pain; SOB, CP Speciality: Acuity: Enc Type: Observation Med Service: Medical Arrival: 11/11/2024 09:31:31 Discharge: Dispo Type: Admitted as IP to this [facility] Address: Tomasa MCDONNE[facility] [phone] Provider Notes: Diagnosis: 2:Hyperglycemia; 3:Thrombocytopenia; 4:Alcohol use; 5:Chronic GERD; 6:Obesity Problems Active Chronic GERD Obesity Alcohol use Smoking Status: Former Smoker Functional Status: Sensory Deficits: History of Falls: Mobility Assistance Prior to Admission: ADLs: Independent Current Level of Assistance for Self-Care/Mobility: Cognitive Status: Oriented x 3 Allergies No Known Medication Allergies Measurements: Height: 187.96 cm Weight: 106.1 kg Blood Pressure: 114 mmHg / 80 mmHg BMI: 30.15 kg/m2 Procedures No Procedures Performed or Documented Immunizations No Immunizations Documented This Visit Final Med List: pantoprazole (Pantoprazole [address] Tab) 1 Tablets By Mouth every day. Care Team Members: Attending Physician: Bladimir Palafox DO Consulting Physician: [facility] Cardio, XXXX Referring Physician: Follow up: With: Address: When: Estrella PETERS, BRIAN Aguilar [address] [place] [phone] 11/27/2024 3:30 PM Comments: Keep scheduled appointment With: Address: When: Juan Alberto Patterson MD [address] [place] [address] [phone] Within 1 to 2 weeks Comments: Call for followup appointment Call physician if symptoms worsen Patient Education Information: Physical Activity With Heart Disease; DASH Eating Plan; Atrial Fibrillation, Zlic-ha-Dufn Normal [facility] Inpatient Patient Summaryon 11-12-2024 Inpatient Patient Summary Inpatient Patient Summary [address] [address] Patient Discharge Instructions PERSON INFORMATION Name: RICK JENKINS Date of : 1965 Current Date: 11/12/2024 11:32:38 PHYSICIANS Admitting Physician: Bladimir Palafox DO Primary Care Physician: Juan Alberto Patterson MD PCP Comment: Discharge Diagnosis: 2:Hyperglycemia; 3:Thrombocytopenia; 4:Alcohol use; 5:Chronic GERD; 6:Obesity Condition at Discharge: Improved RICK JENKINS has been given the following list of follow-up instructions, prescriptions, and patient education materials: PATIENT FOLLOW-UP INFORMATION Diet: Discharge Activity: Discharge Restrictions: Wound Care Instructions: Remove Your Dressing In Days Call Your Doctor For: IF UNABLE TO CONTACT YOUR PHYSICIAN AND YOU FEEL IT IS AN EMERGENCY, GO TO THE NEAREST EMERGENCY ROOM OR CALL 911 Home Treatment: Devices/Equipment: None Special Services: Additional Instructions: Return to the emergency department if you develop worsening symptoms or have reoccurrence of symptoms that led to your hospitalization Follow-up with your PCP and marketing production coordinator Primary Care Physician to provide the following pending test results: None Follow up: With: Address: When: Estrella PETERS, [place] [address] [phone] 11/27/2024 3:30 PM Comments: Keep scheduled appointment With: Address: When: Leonardo PETERS, Juan Alberto [address] [place] [address] [phone] Within 1 to 2 weeks Comments: Call for followup appointment Call physician if symptoms worsen In the event that this physician does not participate in your insurance network, please consult with your insurance company to find a nearby participating provider. Comment: GREGORY Varner DARL J, have received the attached patient education materials/instruction s and have verbalized understanding: Patient Signature Date Clinican/Nurse Signature Date HERE ARE THE MEDICATION CHANGES THAT OCCURRED DURING YOUR HOSPITAL STAY Medications to Continue with No Changes Other Medications pantoprazole (Pantoprazole [address] Tab) 1 Tablets By Mouth every day. Last Dose: ____Next Dose: ____ Comment: MEDICATION LIST PROVIDED FOR YOU IS A LIST OF YOUR CURRENT MEDICATIONS. PLEASE CARRY THIS WITH YOU AT ALL TIMES. pantoprazole (Pantoprazole [address] Tab) 1 Tablets By Mouth every day. Pharmacy Information: [facility] Comment: PATIENT EDUCATION INFORMATION Instructions: Physical Activity With Heart Disease Being active has many benefits, especially if you have heart disease. Physical activity can help you do more and feel healthier. Start slowly, and increase the amount of time you spend being active. You should aim for physical activity that: ??? Makes you breathe harder and raises your heart rate (aerobic activity). Try to get at least 150 minutes of aerobic activity each week. This is [...] Stair climbing. ??? Swimming laps. ??? Hiking uph (more content not included)... Normal [facility] Interdisciplinary Note - Salo e Manageron 11-12-2024 Interdisciplinary Note - Metal Rivet Machine Operator Interdisciplinary Note - Metal Rivet Machine Operator Patient awake,alert and oriented. Dr. Reyna is attending, see notes. Patient able to participate in dc planning. Patient observation status for SOB and CP. PCP, DME and insurance information confirmed. Patient lives with and she will transport at dc. Patient independent with all IADL's, ADL's, works and drives. Declined HH or paramedicine service. Pt reports doctor said he will dc today. Denies any dc concerns or needs. WHite board updated Normal [facility] Comment on above: Result Comment: Elec tronically Signed By: Hillary Munoz\.br\Date and Time Signed: 11/12/24 09:24 EDT Magnesiumon 11-12-2024 Magnesium [Mass/Vol] 2.0 mg/dL Normal 1.3-2.[address] [facility] Comment on above: Performed By: #### 2 [id number] #### [facility] [address] [place] [address] eGFRon 11-12-2024 eGFR 85 mL/min/1.73 m2 Normal >=59 [facility] Comment on above: Performed By: #### 1 [id number] #### [facility] [address] [place] [address] BMPon 11-11-2024 Anion gap [Moles/Vol] 13 mmol/L Normal 6-16 [facility] Comment on above: Performed By: #### 2 110431 #### [facility] [address] [place] [address] BUN/Creat Ratio 12 No Units Normal 10-20 [facility] Comment on above: Performed By: #### 2 [id number] #### [facility] [address] [place] [address] Calcium [Mass/Vol] 9.2 mg/dL Normal 8.9-11.1 [facility] Comment on above: Performed By: #### 2 560350 #### [facility] [address] [place] [address] Chloride [Moles/Vol] 107 mmol/L Normal 101-[address] [facility] Comment on above: Performed By: #### 2 794613 #### [facility] [address] [place] [address] CO2 [Moles/Vol] 22 mmol/L Normal 21-31 [facility] Comment on above: Performed By: #### 2 [id number] #### [facility] [address] [place] [address] Creatinine [Mass/Vol] 1.2 mg/dL Normal 0.5-1.3 [facility] Comment on above: Performed By: #### 2 945174 #### [facility] [address] [place] [address] Glucose [Mass/Vol] 290 mg/dL High 55-199 [facility] Comment on above: Performed By: #### 2 813743 #### [facility] [address] [place] [address] Potassium [Moles/Vol] 3.9 mmol/L Normal 3.5-5.3 [facility] Comment on above: Performed By: #### 2 337123 #### [facility] [address] [place] [address] Sodium [Moles/Vol] 138 mmol/L Normal 135-145 [facility] Comment on above: Performed By: #### 2 732426 #### [facility] [address] [place] [address] Urea nitrogen [Mass/Vol] 15 mg/dL Normal 5-21 [facility] Comment on above: Performed By: #### 2 559452 #### [facility] [address] [place] [address] CBC w/ Auto Diffon 5 Basophil Absolute 0.0 E9/L Normal 0.0-0.2 [facility] Comment on above: Performed By: #### 2 421005 #### [facility] [address] [place] [address] Basophils/100 WBC (Bld) 0.6 % Normal 0.0-2.0 [facility] Comment on above: Performed By: #### 2 [id number] #### [facility] [address] [place] [address] Eos Absolute 0.1 E9/L Normal 0.0-0.5 [facility] Comment on above: Performed By: #### 2 278902 #### [facility] [address] [place] [address] Eosinophils/100 WBC (Bld) 1.1 % Normal 0.0-8.0 [facility] Comment on above: Performed By: #### 2 [id number] #### [facility] [address] [place] [address] Erythrocyte distribution width (RBC) [Ratio] 13.7 % Normal 10.9-14.2 [facility] Comment on above: Performed By: #### 2 390245 #### [facility] [address] [place] [address] Hematocrit (Bld) [Volume fraction] 49.5 % High 37.7-49.0 [facility] Comment on above: Performed By: #### 2 884614 #### [facility] [address] [place] [address] Hemoglobin (Bld) [Mass/Vol] 16.7 g/dL Normal 13.5-17.5 [facility] Comment on above: Performed By: #### 2 512019 #### [facility] [address] [place] [address] Lymph Absolute 1.9 E9/L Normal 1.0-4.0 [facility] Comment on above: Performed By: #### 2 018436 #### [facility] [address] [place] [address] Lymphocytes/100 WBC (Bld) 22.7 % Normal 14.0-50.0 [facility] Comment on above: Performed By: #### 2 [id number] #### [facility] [address] [place] [address] MCH (RBC) [Entitic mass] 30.1 pg Normal 27.0-34.0 [facility] Comment on above: Performed By: #### 2 316390 #### [facility] [address] [place] [address] MCHC (RBC) [Mass/Vol] 33.8 g/dL Normal 31.4-36.0 [facility] Comment on above: Performed By: #### 2 522029 #### [facility] [address] [place] [address] MCV (RBC) [Entitic vol] 89.2 fL Normal 80.0-100.0 [facility] Comment on above: Performed By: #### 2 603754 #### [facility] [address] [place] [address] Will Absolute 0.7 E9/L Normal 0.2-1.0 [facility] Comment on above: Performed By: #### 2 744547 #### [facility] [address] [place] [address] Monocytes/100 WBC (Bld) 8.3 % Normal 4.0-14.0 [facility] Comment on above: Performed By: #### 2 155118 #### [facility] [address] [place] [address] Neutro Absolute 5.6 E9/L Normal 2.0-7.5 [facility] Comment on above: Performed By: #### 2 877451 #### [facility] [address] [place] [address] Neutro Auto 67.3 % Normal 36.0-75.0 [facility] Comment on above: Performed By: #### 2 723843 #### [facility] [address] [place] [address] Platelet 132.0 E9/L Low 150.0-500.0 [facility] Comment on above: Performed By: #### 2 727926 #### [facility] [address] [place] [address] Platelet mean volume (Bld) [Entitic vol] 10.1 fL Normal 6.4-10.8 [facility] Comment on above: Performed By: #### 2 089868 #### [facility] [address] [place] [address] RBC 5.6 E12/L Normal 4.3-5.9 [facility] Comment on above: Performed By: #### 2 [id number] #### [facility] [address] [place] [address] WBC 8.3 E9/L Normal 4.0-11.0 [facility] Comment on above: Performed By: #### 2 259501 #### [facility] [address] [place] [address] Capillary Glucose POCon 10-24 Glucose [Mass/Vol] 132 mg/dL High 55-99 [facility] Comment on above: Result Comment: Sanjuanita soto RN/ Performed By: #### 2 [id number] #### [facility] [address] [place] [address] Glucose [Mass/Vol] 117 mg/dL High 55-99 [facility] Comment on above: Result Comment: Sanjuanita soto RN/ Performed By: #### 2 [id number] #### [facility] [address] [place] [address] ED Clinical Summaryon 2024 ED Clinical Summary ED Clinical Summary [address] [address] ED Clinical Summary Person Information Name: RICK JENKINS Aranza [place]ina[place] Age: 59 Years : 1965 Sex: Male Language: Sao Tomean PCP: Juan Alberto Patterson MD Marital Status: Phone: [phone] Visit Id: Visit Reason: Shortness of breath; Chest pain; SOB, CP Speciality: Acuity: 1 Enc Type: Observation Med Service: Medical Arrival: 11/11/2024 09:31:31 Discharge: LOS: 000 03:58 Checkin: 11/11/2024 09:31:31 Checkout: 11/11/2024 13:29:47 Dispo Type: Admitted as IP to this [facility] EVENTS: Event Name Event Status Request Date/Time Start Date/Time Complete Date/Time Arrive Complete 11/11/2024 09:31:31 11/11/2024 09:31:31 11/11/2024 09:31:31 Document Home Meds Request 11/11/2024 09:31:31 Triage Complete 11/11/2024 09:31:31 11/11/2024 09:45:09 11/11/2024 09:45:09 EKG Complete 11/11/2024 09:34:53 11/11/2024 09:40:12 Bed Assign Complete 11/11/2024 09:35:24 11/11/2024 09:35:24 11/11/2024 09:35:24 Dr Exam Complete 11/11/2024 09:35:24 11/11/2024 09:39:05 11/11/2024 09:39:05 RN Exam Complete 11/11/2024 09:35:24 11/11/2024 10:14:00 11/11/2024 10:14:00 Registration Complete 11/11/2024 09:39:05 11/11/2024 09:54:25 11/11/2024 09:54:25 Dr Exam Complete 11/11/2024 09:39:20 11/11/2024 09:39:20 11/11/2024 09:39:20 Meds Admin Request 11/11/2024 09:48:17 Pending Labs Complete 11/11/2024 09:48:17 11/11/2024 11:29:09 Lab Complete 11/11/2024 09:48:17 11/11/2024 10:38:54 Patient Care Request 11/11/2024 09:48:17 RT Request 11/11/2024 09:48:17 X-Ray Complete 11/11/2024 09:48:17 11/11/2024 09:48:41 11/11/2024 10:00:58 Reg Complete Request 11/11/2024 09:54:25 Reg Bed Request Complete 11/11/2024 09:54:25 11/11/2024 09:54:25 11/11/2024 09:54:25 Meds Admin Request 11/11/2024 09:59:43 Wet Read Request 11/11/2024 10:00:58 Pending Labs Complete 11/11/2024 10:06:40 11/11/2024 10:06:40 11/11/2024 10:35:11 Lab Complete 11/11/2024 10:06:40 11/11/2024 10:06:40 11/11/2024 10:35:11 Pending Labs Complete 11/11/2024 10:13:23 11/11/2024 10:13:23 11/11/2024 10:13:23 Meds Admin Complete 11/11/2024 10:31:57 11/11/2024 10:37:44 EKG Complete 11/11/2024 11:29:01 11/11/2024 11:36:13 Consult Request 11/11/2024 12:12:02 Hospitalist Consult Request 11/11/2024 12:12:02 Observation Request 11/11/2024 13:13:56 Patient Care Request 11/11/2024 13:13:56 Patient Care Request 11/11/2024 13:13:58 Patient Care Request 11/11/2024 13:13:59 Patient Care Request 11/11/2024 13:14:00 Patient Care Request 11/11/2024 13:14:00 Meds Admin Request 11/11/2024 13:15:22 ADDRESS: [address] [place] [id number] [facility] NOTES: MEDICAL INFORMATION: Prescriptions Given: Medications to Continue with No Changes Other Medications acetaminophen-hydroco done ([place] 325 mg-5 mg oral tablet) 1-2 tab(s) Oral q4hr; as needed for pain. Refills: 0. docusate (Colace 100 mg Cap) 1 Capsules By Mouth 2 times a day as needed for constipation. Refills: 0. meloxicam (meloxicam 15 mg Tab) 1 Tablets By Mouth every day. Refills: 0. pantoprazole (Pantoprazole [address] Tab) 1 Tablets By Mouth every day. PATIENT EDUCATION INFORMATION: Instructions: Follow up: DIAGNOSIS: 2:Hyperglycemia; 3:Thrombocytopenia; 4:Obesity Normal [facility] ED Note-Physicianon 11-12-19 ED Note-Physician ED Note-Physician Basic Information Time Seen: Emiliano Bravo DOKush 11/11/2024 09:39 Chief Complaint pt c/o midsternal cp that started this morning that lasted 20 mins and resolved. pt does also c/o sob. History of Present Illness Patient is a 59-year-old male history of partial lobectomy of his left lung back in 2012 [facility] for a ruptured bleb. For evaluation of lower chest pain and some shortness of breath started this morning when he woke up. Lasted about 20 minutes and he really indicates epigastric areas where he is having pain. It was localized here did not radiate anywhere. He is feeling fatigued when he walked outside. Found to be tachycardic in the emergency department with heart rate in the 190s and initially hypotensive as blood pressures improved. He denies any history of coronary artery disease. Denies any cardiac conditions. No history of atrial fibrillation or atrial flutter. Review of Systems Constitutional: no fever, no chills, no sweats, no weakness HEENT: no sore throat, ear pain, sinus congestion Respiratory: no SOB, no cough, no orthopnea, no wheezing Cardiovascular: no chest pain, no palpitations, no edema Abdomen: no pain, distension, no n/v or diarrhea Extremities: no swelling Neurological: no dizziness, confusion, headache Additional ROS info: Except as noted above in the above review of systems and in the history of present illness all other systems have been reviewed and are negative or noncontributory constitutional: Physical Exam Vitals & Measurements HR: 207(Peripheral) RR: 24 BP: 135/100 SpO2: 96% HT: 187 cm WT: 114.9 kg BMI: 32.86 Constitutional: No acute distress, nontoxic, non ill appearing Heart: Tachycardic rate with regular regular rhythm no murmurs Rubs Lungs: clear to auscultation bilaterally without wheezes, rales or rhonchi Abdomen: soft, nontender, nondistended abdomen Extremities: warm and dry bilaterally without pitting edema Neurological: awake, alert answers questions appropriately Medical Decision Making Shows atrial fibrillation with RVR heart rate [address] elevation ST depression Chest x-ray reviewed, no evidence of pneumothorax. Patient given 6 mg adenosine and 12 without any successful conversion. Cardizem bolus and infusion for rate control. Obtain cardiac workup to assess for any evidence of decompensated CHF. Labs significant for thrombocytopenia platelets 132 monitor glycemia glucose 390 otherwise unremarkable. Chest x-ray does not show any pulmonary edema or acute findings. Patient was rate controlled with Cardizem here. We discussed need for admission for further management. This patient was admitted for further management. I spent greater than 35 minutes critical care team. Patient Assessment/Plan 1. Atrial fibrillation (I48.91: Unspecified atrial fibrillation) [...] 1,000 mL, 1000 mL, IV Home Colace (more content not included)... Normal [facility] Comment on above: Result Comment: Elec tronically Signed By: Emiliano Bravo DO\.br\Date and Time Signed: 11/11/24 18:16 EDT ED Patient Education Noteon 11-11-2024 ED Patient Education Note ED Patient Education Note Normal [facility] ED Patient Summaryon 025 ED Patient Summary ED Patient Summary [address] [address] Patient Discharge Instructions Person Information Name: RICK JENKINS Age: 59 Years Arrival Date: 11/11/2024 09:31:31 Discharge Diagnosis: 2:Hyperglycemia; 3:Thrombocytopenia; 4:Obesity Primary Care Physician: Juan Alberto Patterson MD Provider Information Primary Provider: Bravo DO, Emiliano M. Advanced Pan Washer Hand:None The exam and treatment you received in the Emergency Department were for an urgent problem and are not intended as complete care. It is important that you follow up with a doctor, nurse practitioner, or physician???s assistant analyst for ongoing care. If your symptoms become worse or you do not improve as expected and you are unable to reach your usual health care provider, you should return to the Emergency Department. We are available 24 hours a day. RICK JENKINS has been given the following list of patient education materials, prescriptions and follow-up instructions: Follow-up Instructions: In the event that this physician does not participate in your insurance network, please consult with your insurance company to find a nearby participating provider. Patient Education Materials: A MESSAGE TO ALL PATIENTS REGARDING OPIOIDS PRESCRIPTION OPIOIDS: WHAT YOU NEED TO KNOW Prescription opioids can be used to help relieve pylepasq-vi-onfbcw pain and are often prescribed following a surgery or injury, or for certain health conditions. These medications can be an important part of the treatment but also come with serious risks. It is important to work with your healthcare provider to make sure you are getting the safest, most effective care. WHAT ARE THE RISKS AND SIDE EFFECTS OF OPIOID USE? Prescription opioids carry serious risks of addiction and overdose, especially with prolonged use. An opioid overdose, often marked by slowed breathing, can cause sudden . The use of prescription opioids can have a number of side effects as well, even when taken as directed: ??? Tolerance???meaning you might need to take more of the medication for the same pain relief ??? Physical dependence???meaning you have symptoms of withdrawal when a medication is stopped ??? Increased sensitivity to pain ??? Constipation ??? Nausea, vomiting, and dry mouth ??? Sleepiness and dizziness ??? Confusion ??? Depression ??? Low levels of testosterone that can result in lower sex drive, energy, and strength ??? Itching and sweating RISKS ARE GREATER WITH: ??? History of drug misuse, substance use disorder, or overdose ??? Mental health conditions (such as depression or anxiety) ??? Sleep apnea ??? Older age (65 years and older) ??? Avoid alcohol while taking prescription opioids. Also, unless specifically advised by your health care provider, medications to avoid include: ??? Benzodiazepines (such as Xanax or Valium) ??? Muscle relaxants (such as Soma or Flexeril) ??? Hypnotics (such as Ambien or Lunesta) ??? Other prescription opioids KNOW YOUR OPTIONS Talk to your health care provider about ways to manage your pain that don???t involve prescription opioids. Some of these options may actually work better and have fewer risks and side effects. Options may include: ??? Pain relievers such as acetaminophen, ibuprofen, and naproxen ??? Some medication that are also used for depression or seizures ??? Physical therapy and exercise ??? Cognitive behavioral therapy, a psychological, goal-directed approach, in which patients learn how to modify physical, behavioral, and emotional triggers of pain and stress. IF YOU ARE PRESCRIBED OPIOIDS FOR PAIN: ??? Never take opioids in greater amounts or more often than prescribed. ??? Follow up with your primary health care provider. o Work together to create a plan on how to manage your pain. o Talk about ways to help manage your pain that don???t involve prescription opioids. o Talk about any and all concerns and side effects. ??? Help prevent misuse and abuse o Never sell or share prescription opioids. o Never use another person???s prescription opioids. ??? Store prescription opioids in a secure place and out of reach of others (this may include visitors, children, friends, and family). ??? Safely dispose of unused prescription opioids: Find your community drug take-back program or your pharmacy mail-back program, or flush them down the toilet, following guidance from the Food and Drug Administration (www.fda.gov/Drugs/Re sourcesForYou). ??? Visit www.cdc.gov/drugoverd ose to learn about the risks of opioids abuse and overdose. ??? If you believe you may be struggling with addiction, tell your health laboratory animal care veterinarian and ask for guidance or call [facility]???S National Helpline at 9-089-449-XSVE. v Source: US Department of Health and Human Services/[place] for (more content not included)... Normal [facility] [id number] 11-11-2024 HbA1c (Bld) [Mass fraction] 6.4 % High <=5.9 [facility] Comment on above: Performed By: #### 7 [id number] #### [facility] [address] [place] [address] Interdisciplinary Note - Salo e Manageron 11-11-2024 Interdisciplinary Note - Metal Rivet Machine Operator Interdisciplinary Note - Metal Rivet Machine Operator Patient awake,alert and oriented. is at bedside. Patient able to participate in dc planning. Patient observation status for SOB and CP. PCP, DME and insurance information confirmed. Patient lives with and she will transport at dc. Patient independent with all IADL's, ADL's, works and drives. Declined HH or paramedicine service. Denies any dc concerns or needs. WHite board updated Normal [facility] Comment on above: Result Comment: Elec tronically Signed By: Hillary Munoz\.br\Date and Time Signed: 11/11/24 16:06 EDT Magnesiumon 11-11-2024 Magnesium [Mass/Vol] 1.9 mg/dL Normal 1.3-2.[address] [facility] Comment on above: Performed By: #### 2 [id number] #### [facility] [address] [place] [address] PT & PTTon 11-11-2024 INR Coag (PPP) [Relative time] 1.01 {INR} Invalid Interpretation Code [facility] Comment on above: Result Comment: INR results are specifically intended to assess patients stabilized on long-term Anticoagulation therapy suggested INR???s ???Less Intensive Anticoagulation??? 2.0 ??? 3.0 Conventional Range 3.0 ??? 4.5 Performed By: #### 1 [id number] #### [facility] [address] [place] [address] PT 11.3 second(s) Normal 9.4-12.5 [facility] Comment on above: Result Comment: 15 d ays - 4 weeks 1 - 5 months 6 -11 months 1- 5 years 6-10 years 11 -17 years Mean: 11.2 (9.5-12.6) Mean: 11.0 (9.7-12.8) Mean: 11.0 (9.8-13.0) Mean: 11.3 (9.9-13.4) Mean: 11.7 (10.0-14.6) Mean: 11.8 (10.0 - 14.1) Pediatric Reference ranges were obtained from a study by josh Metcalf al. prepared from 1437 samples obtained at 7 different centers using the same coagulation reagent and instrumentation as [facility]. Currently there are no coagulation studies available worldwide for children to 14 days, and no normal ranges. Performed By: #### 1 [id number] #### [facility] [address] [place] [address] PTT 33.2 second(s) Normal 25.1-36.5 [facility] Comment on above: Result Comment: Para meter 15 days - 4 weeks 1 - [...] the same coagulation reagent and instrumentation as [facility]. Currently there are no coagulation studies available worldwide for children to 14 days, and no normal ranges. Heparin therapeutic range (represented by Anti-Factor Xa activity of 0.2 - 0.4 U/mL) corresponds to PTT of 56.6 - 109.0 sec. Performed By: #### 1 [id number] #### [facility] [address] [place] [address] TSH With T4fr Reflexon 11-11 TSH Qn 1.86 m[IU]/L Normal 0.34-5.60 [facility] Comment on above: Performed By: #### 1 [id number] #### [facility] [address] [place] [address] Troponin 0 Hr.on 11-11-2024 Troponin HS 18.40 pg/mL Normal 15.90-38.40 [facility] Comment on above: Result Comment: The 95% CI (Confidence Interval) PPV (Positive Predictive Value) for myocardial infarction in females is 38 pg/mL, in males 51 pg/mL. The results should be used in conjunction with clinical conditions of myocardial infarction. (Access High Sensitivity Troponin I Instructions For Use, [employer], October 2017) Performed By: #### 1 [id number] #### [facility] [address] [place] [address] Troponin 1 Hr.on 11-11-2024 Troponin HS 25.70 pg/mL Normal 15.90-38.40 [facility] Comment on above: Result Comment: The 95% CI (Confidence Interval) PPV (Positive Predictive Value) for myocardial infarction in females is 38 pg/mL, in males 51 pg/mL. The results should be used in conjunction with clinical conditions of myocardial infarction. (Access High Sensitivity Troponin I Instructions For Use, [employer], October 2017) Performed By: #### 1 [id number] #### [facility] [address] [place] [address] XR Chest Single Viewon 11-11 XR Chest Single View Exam Date/Time: 11/11/2024 10:00 EDT Reason for Exam: Chest pain Report IMPRESSION: NO EVIDENCE OF ACTIVE CARDIOPULMONARY DISEASE, BY PORTABLE CHEST RADIOGRAPHY. EXAM: XR Chest Single View DATE: 11/11/2024 9:48 AM CLINICAL HISTORY: Chest pain. COMPARISON: 07/26/2020. TECHNIQUE: A portable upright AP radiograph of the chest was obtained. FINDINGS: There is no developing pulmonary infiltrate, cardiomegaly, pleural effusion, vascular congestion, pneumothorax, or other significant changes identified. Postoperative changes of the left lung apex with pleural and parenchymal scarring and mild diffuse coarsening of the bronchovascular structures are again noted. Ordering Provider: Emiliano Bravo FINAL REPORT Dictated: 11/11/2024 10:21 am Yury Pascal MD Signed (Electronic Signature): 11/11/2024 10:21 am Signed by: Yury Pascal MD Transcribed by: ANATOLIY Technologist: PORSHA Normal [facility] eGFRon 11-11-2024 eGFR 69 mL/min/1.73 m2 Normal >=59 [facility] Comment on above: Performed By: #### 1 [id number] #### [facility] [address] [place] [address] MRI KNEE RT WO CONon 020 MRI KNEE RT WO CON Patient: RICK JENKINS Exam Date: 04/13/2019 : 1965 Gender:M Ordering : MEG REYEZ CNP Admission #: [id number] Family : ZELDA JOHNSON Order #: [id number] CLICK HERE TO VIEW EXAM RADIOLOGY REPORT [...] the lateral femoral condyle. Dictated by: Gavino Rodriugez M.D. on 04/13/2019 at 10:03 Approved by: Gavino Rodriguez M.D. on 04/13/2019 at 10:14 Normal [facility] XR KNEE RT 4V OR >on 019 XR KNEE RT 4V OR > Patient: RICK JENKINS Exam Date: 03/21/2019 : 1965 Gender:M Ordering : DR BILLY BLACKMAN D.O. Admission #: [id number] Family : DR. EARNEST MELLO . Order #: [id number] CLICK HERE TO VIEW EXAM RADIOLOGY REPORT [...] Ousmane Anderson M.D. on 03/21/2019 at 09:10 Normal [facility] Encounters Encounter Date Encounter Type Care Provider Facility Start: 11-11-2024 End: 11-12-2024 ambulatory Bladimir ConnellKush Javy Facility:[facility] Start: 11-11-2024 Emergency department patient visit Emiliano Bravo Facility:[facility] Start: 04-13-2019 End: 04-14-2019 Patient encounter procedure MEG REYEZ Facility: Start: 03-21-2019 End: 03-21-2019 Patient encounter procedure JUAN ALBERTO HOPriya Facility:[facility] Payers Date Payer Category Payer Private Health Insurance 2024 Self-pay 2024 Unknown 1965 Unknown [id number] 2.16.84 [id number] 1965 Unknown [id number] 2.16.84 [id number] 1965 Unknown [id number] 2.16.8 [id number] 1965 Unknown [id number] 2.16.8 [id number] 1965 Unknown [id number] 2.16.8 [id number] 1965 Unknown [id number] 2.16.8 [id number] 1965 Unknown [id number] 2.16.8 [id number] 1965 Unknown [id number] 2.16.8 [id number] 1965 Unknown [id number] 2.16.8 [id number] 1961 Private Health Insurance [id number] 1961 Unknown [id number] Discharge summary note 11-13-2024 Note Date & Type Note Facility 11-13-2024 Note Discharge Summary Admission and Discharge Information Admitting Physician - Bladimir Palafox DO Consulting Physician - [facility] Cardio, XXXX Admitting Diagnoses: 1. Atrial fibrillation, 11/11/2024 Discharge Diagnoses 1. Atrial fibrillation, 11/11/2024 2. Hyperglycemia, 11/11/2024 3. Thrombocytopenia, 11/11/2024 4. Alcohol use, 11/11/2024 5. Chronic GERD, 11/11/2024 6. Obesity, 11/11/2024 Chest pain, 11/11/2024 Shortness of breath, 11/11/2024 Procedure History Arthroscopy of knee (08/05/2020), Partial lobectomy of lung (07/15/2012), Rotator cuff repair. Hospital Course 59-year-old male with history of GERD, dyspnea. 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 He is reformed smoker of less than 10 pack per history. He does drink alcohol daily 1-2 beers per day. Patient was admitted 11/11/2024 with complaints of chest discomfort that started earlier on day of arrival when he woke up. He had associated fatigue and shortness of breath. On arrival patient was afebrile, tachycardic greater than 200 bpm, normotensive. No hypoxia on room air. ECG performed showed A-fib RVR in the 170s. Chest x-ray was done and negative. CBC with platelet count 132, BMP fairly unremarkable except glucose of 290. Troponin 18.4, 25.7. Patient was given adenosine 6 mg then a second dose of 12 mg without improvement. Patient was given IV diltiazem bolus and started on drip with some improvement in heart rate. Repeat EKG confirms atrial fibrillation. Patient was admitted to hospitalist service for further management. Hospital course: Patient responded to diltiazem and pharmacologically converted to sinus rhythm without an reoccurrence of Afib and cardiac sx. Cardiology was consulted and recommended no further management at this time. Patient will need to follow-up outpatient with cardiology for possible stress stress and outpatient sleep study. Advised patient to milligrams diet modification such as incorporating a regular scheduled exercise, and cutting back on his alcohol use, starting a DASH diet. Patient's Jun vas score is 0, however patient is thrombocytopenic at baseline. Per cardiology will hold off anticoagulation at this time and follow-up outpatient for risk management. Echocardiogram was benign with EF 60-65%. Patient was hyperglycemic in the 200s, likely due to acute medical condition. Patient's A1c 6.2. Recommend further dietary and lifestyle modifications. Patient was discharged home in stable condition Outpatient Follow Up: PCP within 1-2 weeks Cardiology within 1-2 weeks- possible stress test, sleep study Medication Changes: No medication changes at this time. I discussed the diagnosis and plan of care with the patient/family at the bedside. Patient/family acknowledged understanding and agreeable with plan. All questions were answered appropriately. Discharge time spent 40 minutes which included extensive conversation with patient and/or family/ POA about diagnosis and treatment plan, reviewing discharge instructions, medications, medication use. Along with communication with consultants, nursing, case management. This report was transcribed using voice recognition software. Every effort was made to ensure accuracy, however, inadvertently computerized bobbin coil winder mistakes may be present. Physical Exam General: Well appearing, no acute distress Skin: Warm, dry Head: No trauma, normocephalic Neck: Trachea midline, supple, negative for JVD Eye: Conjunctive are clear, clear sclera , EOMI ENMT: Oral mucosa moist, no lesions or edema around mouth, nose and external ears Cardiovascular: Regular rate and rhythm, S1-S2 present, negative for murmurs, rubs or gallops Respiratory: Lungs clear to auscultation bilaterally, symmetrical chest rise, negative for wheezes, rales or rhonchi. Chest wall: No deformity, no tenderness Gastrointestinal: Abdomen soft, bowel sounds present, nontender to palpation, no rebound, no ascites, no distention Back: No tenderness, ROM intact Extremities: ROM intact, no edema, no lesions Neurological: Awake, alert, orientated x3, normal speech, cranial nerves II through XII intact, no sensory defects, at baseline Psychiatric: Cooperative, affect appropriate for age, pleasant Tests Performed Echo Transthoracic w/ Contrast XR Chest Single View Discharge Plan Discharge Disposition Discharge To, Anticipated II - Home with responsible caregiver Discharged to - Home with family care Discharge Medication List Prescriptions No active prescription medications Home Pantoprazole [address] Tab, 40 mg= 1 tab(s), Oral, Daily Follow-up With When Contact Information Estrella PETERS, Lauren, CAR 11/27/2024 03:30 PM EDT [address] [place] [address]- [phone] Additional Instructions: Keep scheduled appointment Juan Alberto Patterson MD Within 1 to 2 weeks [address] [place] [address]- Additional Instructions: Call for followup appointment Call jackelyn (more content not included)... [facility] Comment on above: Result Comment: Elec tronically Signed By: Axel PETERS, Zandra Pritchard\.br\Date and Time Signed: 11/13/24 09:32 EDT Clinical Note 11-12-2024 Note Date & Type Note Facility 11-12-2024 Note Consultation Note Chief Complaint pt c/o midsternal cp that started this morning that lasted 20 mins and resolved. pt does also c/o sob. History of Present Illness Rick Jenkins is a 59-year-old male with history of GERD, dyspnea. He did have partial lobectomy in 2013 due to left lung bleb. He is reformed smoker of less than 10 pack per history. He does drink alcohol daily 1-2 beers per day. Patient was admitted for scheduled sooner 11/11/2024 with complaints of chest discomfort that started earlier this morning when he woke up. He had associated fatigue and shortness of breath. On arrival patient was afebrile, tachycardic greater than 200 bpm, normotensiv Cardiology consulted regarding further input. When seen in the morning patient was feeling fine. He denies any prior history of A-fib/stroke or strokelike symptoms. He is prediabetic. No prior history of hypertension. 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 He does drink beer on daily basis and he does not drink enough water. Review of Systems Constitutional: Positive fatigue Eye: Negative. Ear/Nose/Mouth/Throat: Negative. Respiratory: Positive shortness of breath that is now resolved Cardiovascular: Positive chest pain that is now resolved. Gastrointestinal: Negative Genitourinary: Negative. Hematology/Lymphatics: Negative. Endocrine: Negative. Immunologic: Negative Musculoskeletal: Negative. Integumentary: Negative. Neurologic: Alert and oriented X4. Psychiatric: Negative. Physical Exam Vitals & Measurements T: 36.5 ???C(Oral) TMIN: 36.2 ???C(Oral) TMAX: 36.8 ???C(Oral) HR: 63(Monitored) RR: 16 BP: 114/80 SpO2: 99% HT: 187.96 cm WT: 106.1 kg Pleasant no acute distress General: alert, no acute distress Neck: Supple, noJVD Cardiovascular: regular rate and rhythm, no murmur normal peripheral perfusion Respiratory: Lungs CTAB, respirations non labored Extremities: no edema left lower extremity. no edema right lower extremity Neurological: oriented x 4, LOC appropriate for age, speech normal Skin: Warm, dry, intact- no rash or concerning lesions Assessment/Plan 1. Atrial fibrillation (I48.91: Unspecified atrial fibrillation) [...] the patient thank you for the consult Problem List/Past Medical [...] than 30 days ago Tobacco Use:., 11/11/2024 [facility] Comment on above: Result Comment: Elec tronically Signed By: Estrella PETERS, Lauren\.demond\Date and Time Signed: 11/12/24 09:26 EDT History and physical note 11-12-2024 Note Date & Type Note Facility 11-12-2024 Note History and Physical Basic Information 59 year old male without significant cardiac history presenting with chest pain, SOB Chief Complaint pt c/o midsternal cp that started this morning that lasted 20 mins and resolved. pt does also c/o sob. History of Present Illness Rick Jenkins is a 59-year-old male with history of GERD, dyspnea. He did have partial lobectomy in 2013 due to left lung bleb. He is reformed smoker of less than 10 pack per history. He does drink alcohol daily 1-2 beers per day. Patient was admitted for scheduled sooner 11/11/2024 with complaints of chest discomfort that started earlier this morning when he woke up. He had associated fatigue and shortness of breath. On arrival patient was afebrile, tachycardic greater than 200 bpm, normotensive. No hypoxia on room air. ECG performed showed A-fib RVR in the 170s. Chest x-ray was done and negative. CBC with platelet count 132, BMP fairly unremarkable except glucose of 290. Troponin 18.4, 25.7. Patient was given adenosine 6 mg then a second dose of 12 mg without improvement. Patient was given IV diltiazem bolus and started on drip with some improvement in heart rate. Repeat EKG confirms atrial fibrillation. Patient was admitted to hospitalist service for further management Review of Systems Constitutional: Positive fatigue Eye: Negative. Ear/Nose/Mouth/Throat: Negative. Respiratory: Positive shortness of breath that is now resolved Cardiovascular: Positive chest pain that is now resolved. Gastrointestinal: Negative Genitourinary: Negative. Hematology/Lymphatics: Negative. Endocrine: Negative. Immunologic: Negative Musculoskeletal: Negative. Integumentary: Negative. Neurologic: Alert and oriented X4. Psychiatric: Negative. Additional ROS info: Except as noted in the above Review of Systems and in the History of Present Illness all other systems have been reviewed and are negative or noncontributory Scoring Chavez Fall Risk Score: 35 (11/11/24) Physical Exam Vitals & Measurements T: 36.6 ???C(Oral) TMIN: 36.6 ???C(Oral) TMAX: 36.8 ???C(Oral) HR: 100(Monitored) RR: 13 BP: 126/85 SpO2: 98% HT: 187.96 cm WT: 106.5 kg General: Obese adult male alert, calm, NAD Head: Normocephalic/atraumatic Eyes: PERRLA. Conjunctivae and sclerae normal, and intact EOM HEENT: Mucous membrane pink, moist, Normal midline tongue. Normal oropharynx, and posterior pharynx without lesions or exudates. Neck: Trachea midline, neck supple, no JVD, no bruit Chest: No chest wall deformity, no chest wall tenderness Lungs: On room air, lungs are clear Cardio: Irregularly irregular S1, S2, no murmur appreciated, good perfusion Pulses: Normal capillary refill Abdomen: Obese abdomen,, non-distended, non-tender, + BS x4 Musculoskeletal: No deformity or scoliosis noted. Normal ROM for age. Integumentary: Warm, dry, intact, normal turgor, no rash or concerning lesions noted Extremity: No clubbing, no edema Neurologic: Alert, oriented x 4 follows commands, no obvious focal deficits Mental status: Pleasant & cooperative, normal judgment Lab Results WBC: 8.3 E9/L (11/11/24 10:02:00) RBC: 5.6 E12/L (11/11/24 10:02:00) HGB: 16.7 gm/dL (11/11/24 10:02:00) Hct: 49.5 % High (11/11/24 10:02:00) MCV: 89.2 fL (11/11/24 10:02:00) MCH: 30.1 pg (11/11/24 10:02:00) MCHC: 33.8 gm/dL (11/11/24 10:02:00) RDW: 13.7 % (11/11/24 10:02:00) Platelet: 132 E9/L Low (11/11/24 10:02:00) MPV: 10.1 fL (11/11/24 10:02:00) Neutro Auto: 67.3 % (11/11/24 10:02:00) Lymph Auto: 22.7 % (11/11/24 10:02:00) Will Auto: 8.3 % (11/11/24 10:02:00) Eos Auto: 1.1 % (11/11/24 10:02:00) Basophil Auto: 0.6 % (11/11/24 10:02:00) Neutro Absolute: 5.6 E9/L (11/11/24 10:02:00) Lymph Absolute: 1.9 E9/L (11/11/24 10:02:00) Will Absolute: 0.7 E9/L (11/11/24 10:02:00) Eos Absolute: 0.1 E9/L (11/11/24 10:02:00) Basophil Absolute: 0 E9/L (11/11/24 10:02:00) PT: 11.3 second(s) (11/11/24 10:02:00) INR: 1.01 (11/11/24 10:02:00) PTT: 33.2 second(s) (11/11/24 10:02:00) Glucose Lvl: 290 mg/dL High (11/11/24 10:02:00) BUN: 15 mg/dL (11/11/24 10:02:00) [...] Troponin HS: 25.7 pg/mL (11/11/24 10:52:00) Images (11/11/2024 10:00 EDT XR Chest Single View) IMPRESSION: NO EVIDENCE OF ACTIVE CARDIOPULMONARY DISEASE, BY PORTABLE CHEST RADIOGRAPHY. [1] Assessment/Plan 1. Atrial fibrillation (I48.91: Unspecified atrial fibrillation) SVT in ER requiring adenosine x 2 IV diltiazem gtt K 3.9, Mg 1.9 -> supplement given to push > 4/2 Admit to continuou (more content not included)... [facility] Comment on above: Result Comment: Elec tronically Signed By: Angelika Iverson CNP\.br\Date and Time Signed: 11/11/24 15:43 EDT\.br\Electronically Co-Signed By: Bladimir Palafox DO\.br\Date and Time Co-Signed: 11/12/24 07:17 EDT Clinical Note 11-11-2024 Note Date & Type Note Facility 11-11-2024 Note Echocardiology Procedure Exam Date/Time Accession # Ordering Echo Transthoracic w/ 11/11/2024 15:41 EDT [id number] Kishor RIVAS, Contrast Angelika L CPT code [id number] Reason for Exam (Echo Transthoracic w/ Contrast) New onset AF;Other (please specify) Report [place] [id number] Adult Echocardiogram Report Name: RICK JENKINS Study Date: 11/11/2024 03:00 PM BP: 126/85 mmHg Patient [facility] 01 HR: 105 : 1965 Gender: Male Height: 73.5 in Age: 59 yrs Ethnicity: WHT Weight: 236 lb Reason For Study: New onset AF;Other (please specify) BSA: 2.3 m2 History: Smoker-Quit,Partial left lung lobectomy Ordering Physician: Kishor^Angelika^Marce Performed By: Diane Major, DARLYN, RVT Interpretation Summary The left ventricle is normal in size. Borderline left ventricular hypertrophy. The left ventricular ejection fraction is normal. Ejection Fraction = 60-65%. Procedure A complete two-dimensional transthoracic echocardiogram was performed using contrast (2D, M-mode, spectral and color flow Doppler). Left Ventricle The left ventricle is normal in size. Borderline left ventricular hypertrophy. The left ventricular ejection fraction is normal. Ejection Fraction = 60-65%. No obvious regional wall motion abnormalities noted. Left Atrium Borderline dilated. Right Atrium Right atrium not well visualized. Right Ventricle The right ventricular systolic function is normal. The right ventricle is not well visualized. Echocardiology Report Aortic Valve Not well-seen but likely normal. Mitral Valve Mild thickening of the mitral valve leaflets. Tricuspid Valve Not well-seen. Right ventricular systolic pressure is normal. Pulmonic Valve The pulmonic valve is normal. Trace pulmonic valvular regurgitation. Arteries The aortic root is normal in size. Venous The inferior vena cava was not visualized during the exam. Effusion There is no pericardial effusion. MMode/2D Measurements & Calculations RVDd: 2.7 cm LVIDd: 4.9 cm FS: 31.1 % Ao root diam: 3.0 cm IVSd: 1.00 cm LVIDs: 3.3 cm EDV(Teich): 110.2 ml LVPWd: 1.1 cm ESV(Teich): 45.5 ml Ao root area: 7.3 cm2 EF(Teich): 58.7 % LA dimension: 3.9 cm LVOT diam: 2.2 cm LVLd ap4: 7.4 cm EDV(MOD-sp2): 80.6 ml SV(MOD-sp4): 54.8 ml LVOT area: 3.8 cm2 EDV(MOD-sp4): 86.2 ml ESV(MOD-sp2): 24.9 ml LVLs ap4: 6.3 cm EF(MOD-sp2): 69.1 % ESV(MOD-sp4): 31.4 ml EF(MOD-sp4): 63.6 % TAPSE: 1.8 cm IVC Diam: 2.3 cm RVIDd/LVIDd: 0.57 EF (MOD-bp): 66.1 % LA Vol Index: 23.2 ml/m2 Doppler Measurements & Calculations MV E max alicia: 81.7 cm/sec MV dec time: 0.19 sec Ao V2 max: 97.5 cm/sec LV V1 max P.2 mmHg Ao max P.8 mmHg LV V1 mean P.0 mmHg Ao V2 mean: 67.1 cm/sec LV V1 max: 74.8 cm/sec Ao mean P.0 mmHg LV V1 mean: 46.8 cm/sec Ao V2 VTI: 12.7 cm LV V1 VTI: 13.0 cm BIJU(I,D): 3.9 cm2 BIJU(V,D): 2.9 cm2 Echocardiology Report SV(LVOT): 49.5 ml TR max alicia: 198.9 cm/sec RAP systole: 3.0 mmHg AV VR: 0.77 TR max P.8 mmHg BIJU(VTI)/BSA_phl: 1.7 RVSP(TR): 18.8 mmHg FINAL REPORT Dictated: 11/11/2024 3:00 pm Lauren De La Rosa MD Signed (Electronic Signature): 11/11/2024 4:42 pm Signed by: Lauren De La Rosa MD Transcribed by: TRUDY Technologist: KARRIE [facility] Summary Purpose Family History No Family History Records FoundNo Family History Records FoundNo Family History Records FoundNo Family History Records FoundNo Family History Records FoundNo Family History Records FoundNo Family History Records FoundNo Family History Records FoundNo Family History Records FoundNo Family History Records FoundNo Family History Records FoundNo Family History Records FoundNo Family History Records FoundNo Family History Records FoundNo Family History Records FoundNo Family History Records FoundNo Family History Records FoundNo Family History Records Found Advance Directives No Advanced Directives Records FoundNo Advanced Directives Records FoundNo Advanced Directives Records FoundNo Advanced Directives Records FoundNo Advanced Directives Records FoundNo Advanced Directives Records FoundNo Advanced Directives Records FoundNo Advanced Directives Records FoundNo Advanced Directives Records FoundNo Advanced Directives Records FoundNo Advanced Directives Records FoundNo Advanced Directives Records FoundNo Advanced Directives Records FoundNo Advanced Directives Records FoundNo Advanced Directives Records FoundNo Advanced Directives Records FoundNo Advanced Directives Records FoundNo Advanced Directives Records Found Additional Source Comments (unrecognized sect ion and content) No Status Records FoundNo Status Records FoundNo Status Records FoundNo Status Records FoundNo Status Records FoundNo Status Records FoundNo Status Records FoundNo Status Records FoundNo Status Records FoundNo Status Records FoundNo Status Records FoundNo Status Records FoundNo Status Records FoundNo Status Records FoundNo Status Records FoundNo Status Records FoundNo Status Records FoundNo Status Records Found INFORMATION SOURCE (unrecogn ized section and content) DATE CREATED AUTHOR 08/19/2019 [facility] DATE CREATED AUTHOR AUTHOR'S ORGANIZ ATION 11/12/2024 [facility] DATE CREATED AUTHOR AUTHOR'S ORGANIZ ATION 11/13/2024 [facility] DATE CREATED AUTHOR AUTHOR'S ORGANIZ ATION 11/14/2024 [facility] FOR RECORDS PERTAINING TO PATIENTS WHO ARE [...] BE BASED ON THE PRIMARY CLINICAL RECORDS. [employer] [facility]. provides no warranty or guarantee of the accuracy or completeness of information in this document.
== END 2024-11-16 06:40 | disposition home or self-care (01) ==
LOC: CARD 06:43
PROVIDERS: PCP Family Medicine; Visit Provider Family Medicine
DX: I48.91 Unspecified atrial fibrillation (principal)
CPT/HCPCS: 93242

== ENCOUNTER 2025-01-06 20:49 | Outpatient (OUT) | payer OTHER, SELFPAY ==
--- OUTSIDE RECORDS SUMMARY | 2025-01-06 20:51 | XMS_ITS | Clinical Summary ---
Author Organization [facility] Address [address] [place] [address] Care Team Providers Care P[employer] Ticket Checker Name Role Phone Unavailable Primary Care Provider Unavailabl e Social History Tobacco Use Types Packs/Day Years Used Date Smoking Tobacco: Never Assessed Sex and Gender Information Value Date Recorded Sex Assigned at Not on file Legal Sex Male 9:17 AM EDT Gender Identity Not on file Sexual Orientation Not on file Plan of Treatment Upcoming Encounters Date Type Department Care Team (Late st Contact Info) Description 01/19/2025 3:45 PM EDT Office Visit [facility] [address] [place] [id number] Samir Lechuga MD [address] [place] [id number] Health Maintenance Due Date Last Done Comments CT Colonography 1965 Colonoscopy 1965 Colorectal Cancer Screening 1965 FIT-DNA 1965 FIT 1965 FOBT 1965 Sigmoidoscopy 1965 Depression Screening 1975 Adult Tetanus 07/15/1985 Zoster Vaccines (1 of 2) 07/15/2013 Influenza Vaccine (#1) 2024 HIB Vaccines Aged Out No longer eligi ble based on patient's age to complete this topic HPV Vaccines Aged Out No longer eligi ble based on patient's age to complete this topic IPV Vaccines Aged Out No longer eligi ble based on patient's age to complete this topic Meningococcal B Vaccine Aged Out No l onger eligible based on patient's age to complete this topic Meningococcal Vaccine Aged Out No noemi gael eligible based on patient's age to complete this topic Pneumococcal Vaccine: Pediat rics (0 to 5 Years) and At-Risk Patients (6 to 64 Years) Aged Out No longer eligible b ased on patient's age to complete this topic Rotavirus Vaccines Aged Out No longer eligible based on patient's age to complete this topic Insurance [facility]
--- OUTSIDE RECORDS SUMMARY | 2025-01-06 20:51 | XMS_ITS | Clinical Summary ---
Author Organization [employer] tem Address [id number] [address] [place] [address] Care Team Providers Care Interior Design Professor Name Role Phone Ashok Patterson MD Primary Care Provider [phone] Allergies No known active allergies Medications pantoprazole [...] on file Medical Devices Implanted Type Area Transit Bus Operator Device Identifier Shelf Expiration Date Model / Serial / Lot Sut Anch Pushlk Bcmps 3.5x19.5 Ea=Bill Only - [id number] - [id number] Implanted:Qty: 1 on 01/15/2018 by Aneudy Kellogg, at [facility] Aulander Left: Shoulder Arthrex 12/16/2018 [id number] / [id number] / [id number] Sut Anch Pushlk Bcmps 3.5x19.5 Ea=Bill Only - [id number] - [id number] Implanted:Qty: 1 on 01/15/2018 by Aneudy Kellogg DO at [facility] Aulander Left: Shoulder Arthrex 06/16/2019 [id number] / [id number] / [id number] Suture Aulander Swivel - [id number] - [id number] Implanted:Qty: 1 on 01/15/2018 by Aneudy Kellogg DO at [facility] Aulander Left: Shoulder Arthrex 08/16/2019 [id number] / [id number] / [id number] Insurance [employer] Care Teams Interior Design Professor Relationship Specialty Start Date End Date Ashok Patterson MD PCP - General 01/09/18
--- OUTSIDE RECORDS SUMMARY | 2025-01-06 20:51 | XMS_ITS | Clinical Summary ---
Author Organization [facility] Address [address] [place] [address] Care Team Providers Care Deck Mechanic Name Role Phone Unavailable Primary Care Provider Unavailabl e Social History Tobacco Use Types Packs/Day Years Used Date Smoking Tobacco: Never Assessed Sex and Gender Information Value Date Recorded Sex Assigned at Not on file Legal Sex Male 8:26 PM EDT Gender Identity Not on file Sexual Orientation Not on file Last Filed Vital Signs Vital Sign Reading Time Taken Comments Blood Pressure 136/91 05/19/2018 12:00 PM EST Pulse - - Temperature - - Respiratory Rate - - Oxygen Saturation - - Inhaled Oxygen Concentration - - Weight 120 kg (265 lb) 11/08/2020 12:00 PM EDT Height 180.3 cm (5' 11 ) 11/08/2020 12:00 PM EDT Body Mass Index 36.96 11/08/2020 12:00 PM EDT Plan of Treatment Not on file
--- OUTSIDE RECORDS SUMMARY | 2025-01-06 20:51 | XMS_ITS | Clinical Summary ---
Author Organization [facility] Address [address] [place] [address], [address] [place] [address] Care Team Providers Care Greenhouse Or Nursery Transplanter Name Role Phone Unavailable Primary Care Provider [...]
--- OUTSIDE RECORDS SUMMARY | 2025-01-06 20:52 | XMS_ITS | CCD ---
Author Organization [facility] [employer]placed by [facility] Care Team Providers Care Building Maintenance Custodian Name Role Phone JUAN ALBERTO PATTERSON Primary Care Unavailable EARNEST MELLO Admitting Unavailable EARNEST MELLO Attending Unavailable BILLY BLACKMAN Consulting Unavailable OUSMANE ANDERSON V Consulting Unavailable MEG REYEZ Admitting Unavailable MEG REYEZ Attending Unavailable JUAN ALBERTO PATTERSON Primary Care Unavailable GAVINO RODRIGUEZ Consulting Unavailable MEG REYEZ Consulting Unavailable Emiliano Bravo Attending Unavailable Bladimir Palafox Attending Unavailable Bladimir Palafox Admitting Unavailable [facility] Cardio, XXXX Consulting Unavailable Bladimir Palafox Admitting Unavailable [facility] Cardio, XXXX Consulting Unavailable MD Zandra Reyna Attending Unavail le Allergies Allergy Classification Reported Allergen(s) Allergy Type Date of Onset Reaction(s) Facility (7 sources) No Known Medication Allergies; Translations: [No Known Medication Allergies] Propensity to adverse reactions (disorder) [facility] Repository Problems Active Problems Problem Classification Problem [...] Test Name Value Interpretation Reference Range Facility [facility] 11-12-2024 Anion gap [Moles/Vol] 9 mmol/L Normal 6-16 [facility] Comment on above: Performed By: #### 2 [id number] #### [facility] [address] [place] [address] BUN/Creat Ratio 13 No Units Normal 10-20 [facility] Comment on above: Performed By: #### 2 [id number] #### [facility] [address] [place] [address] Calcium [Mass/Vol] 8.9 mg/dL Normal 8.9-11.1 [facility] Comment on above: Performed By: #### 2 [id number] #### [facility] [address] [place] [address] Chloride [Moles/Vol] 105 mmol/L Normal 101-111 [facility] Comment on above: Performed By: #### 2 [id number] #### [facility] [address] [place] [address] CO2 [Moles/Vol] 27 mmol/L Normal 21-31 [facility] Comment on above: Performed By: #### 2 [id number] #### [facility] [address] [place] [address] Creatinine [Mass/Vol] 1.0 mg/dL Normal 0.5-1.3 [facility] Comment on above: Performed By: #### 2 [id number] #### [facility] [address] [place] [address] Glucose [Mass/Vol] 136 mg/dL Normal 55-199 [facility] Comment on above: Performed By: #### 2 280126 #### [facility] [address] [place] [address] Potassium [Moles/Vol] 4.3 mmol/L Normal 3.5-5.3 [facility] Comment on above: Performed By: #### 2 397254 #### [facility] [address] [place] [address] Sodium [Moles/Vol] 137 mmol/L Normal 135-145 [facility] Comment on above: Performed By: #### 2 [id number] #### [facility] [address] [place] [address] Urea nitrogen [Mass/Vol] 13 mg/dL Normal 5-21 [facility] Comment on above: Performed By: #### 2 014026 #### [facility] [address] [place] [address] CBC w/ Auto Diffon 5 Basophil Absolute 0.1 E9/L Normal 0.0-0.2 [facility] Comment on above: Performed By: #### 2 795449 #### [facility] [address] [place] [address] Basophils/100 WBC (Bld) 1.2 % Normal 0.0-2.0 [facility] Comment on above: Performed By: #### 2 906945 #### [facility] [address] [place] [address] Eos Absolute 0.1 E9/L Normal 0.0-0.5 [facility] Comment on above: Performed By: #### 2 697913 #### [facility] [address] [place] [address] Eosinophils/100 WBC (Bld) 1.6 % Normal 0.0-8.0 [facility] Comment on above: Performed By: #### 2 300275 #### [facility] [address] [place] [address] Erythrocyte distribution width (RBC) [Ratio] 14.0 % Normal 10.9-14.2 [facility] Comment on above: Performed By: #### 2 688180 #### [facility] [address] [place] [address] Hematocrit (Bld) [Volume fraction] 45.6 % Normal 37.7-49.0 [facility] Comment on above: Performed By: #### 2 236029 #### [facility] [address] [place] [address] Hemoglobin (Bld) [Mass/Vol] 15.5 g/dL Normal 13.5-17.5 [facility] Comment on above: Performed By: #### 2 578769 #### [facility] [address] [place] [address] Lymph Absolute 1.6 E9/L Normal 1.0-4.0 [facility] Comment on above: Performed By: #### 2 288691 #### [facility] [address] [place] [address] Lymphocytes/100 WBC (Bld) 24.3 % Normal 14.0-50.0 [facility] Comment on above: Performed By: #### 2 427327 #### [facility] [address] [place] [address] MCH (RBC) [Entitic mass] 30.9 pg Normal 27.0-34.0 [facility] Comment on above: Performed By: #### 2 054774 #### [facility] [address] [place] [address] MCHC (RBC) [Mass/Vol] 34.0 g/dL Normal 31.4-36.0 [facility] Comment on above: Performed By: #### 2 079757 #### [facility] [address] [place] [address] MCV (RBC) [Entitic vol] 90.9 fL Normal 80.0-100.0 [facility] Comment on above: Performed By: #### 2 624180 #### [facility] [address] [place] [address] Republic Absolute 0.5 E9/L Normal 0.2-1.0 [facility] Comment on above: Performed By: #### 2 103051 #### [facility] [address] [place] [address] Monocytes/100 WBC (Bld) 7.1 % Normal 4.0-14.0 [facility] Comment on above: Performed By: #### 2 063103 #### [facility] [address] [place] [address] Neutro Absolute 4.2 E9/L Normal 2.0-7.5 [facility] Comment on above: Performed By: #### 2 832534 #### [facility] [address] [place] [address] Neutro Auto 65.8 % Normal 36.0-75.0 [facility] Comment on above: Performed By: #### 2 750329 #### [facility] [address] [place] [address] Platelet 107.0 E9/L Low 150.0-500.0 [facility] Comment on above: Performed By: #### 2 711322 #### [facility] [address] [place] [address] Platelet mean volume (Bld) [Entitic vol] 9.2 fL Normal 6.4-10.8 [facility] Comment on above: Performed By: #### 2 367590 #### [facility] [address] [place] [address] RBC 5.0 E12/L Normal 4.3-5.9 [facility] Comment on above: Performed By: #### 2 831126 #### [facility] [address] [place] [address] WBC 6.4 E9/L Normal 4.0-11.0 [facility] Comment on above: Performed By: #### 2 219700 #### [facility] [address] [place] [address] Capillary Glucose POCon 10-24 Glucose [Mass/Vol] 126 mg/dL High 55-99 [facility] Comment on above: Result Comment: Sanjuanita soto RN/MD Performed By: #### 2 [id number] #### [facility] [address] [place] [address] Discharge Note-Nursingon Discharge Note-Nursing Discharge Note-Nursing RICK JENKINS :1965 Visit Date:11/11/2024 Inpatient Discharge Instructions Your Care Team Admitting Physician - Bladimir Palafox DO Consulting Physician - [facility] Cardio, XXXX Reason for Your Visit pt [...] your hospitalizationFollow -up with your PCP and rn support services Previously Scheduled Follow-Up Appointments Saturday 3:30 PM EDT With: Lauren De La Rosa MD Where: [facility] New Follow Up Appointments after Discharge Follow Up with Estrella PETERS, Lauren, CAR When: 11/27/2024 03:30 PM EDT Comments: Keep scheduled appointment Where: [address] [place] [phone] Follow Up with Juan Alberto Patterson MD When: Within 1 to 2 weeks Comments: Call for followup appointment Call physician if symptoms worsen Where: [address] [place] [address]- Medications What How Much When Instructions Next [...] working. Moderate-inten (more content not included)... Normal [facility] Inpatient Clinical Summaryon 11-12-2024 Inpatient Clinical Summary Inpatient Clinical Summary [address] [address] Clinical Summary Person Information: Name: RICK JENKINS Age: 59 Years : 1965 Sex: Male PCP: Juan Alberto Patterson MD Marital Status: Phone: [phone] Race: White Ethnicity: Non- or Language: Setswana Visit Id: Visit Reason: Shortness of breath; Chest pain; SOB, CP Speciality: Acuity: Enc Type: Observation Med Service: Medical Arrival: 11/11/2024 09:31:31 Discharge: Dispo Type: Admitted as IP to this [facility] Address: [address] [facility] [id number] Provider Notes: Diagnosis: 2:Hyperglycemia; 3:Thrombocytopenia; 4:Alcohol use; [...] Attending Physician: Bladimir Palafox DO Consulting Physician: [facility] Cardio, XXXX Referring Physician: Follow up: With: Address: When: Estrella PETERS, BRIAN Aguilar [address] [place] [address] [phone] 11/27/2024 3:30 PM Comments: Keep scheduled appointment With: Address: When: Juan Alberto Patterson MD [address] [place] [address] [phone] Within 1 to 2 weeks Comments: Call for followup appointment Call physician if symptoms worsen Patient Education Information: Physical Activity With Heart Disease; DASH Eating Plan; Atrial Fibrillation, Shxa-vf-Cgas Normal [facility] Inpatient Patient Summaryon 11-12-2024 Inpatient Patient Summary Inpatient Patient Summary [address] [address] Patient Discharge Instructions PERSON INFORMATION Name: RICK [...] your hospitalization Follow-up with your PCP and rn support services Primary Care Physician to provide the following pending test results: None Follow up: With: Address: When: Estrella PETERS, [place] [phone] 11/27/2024 3:30 PM Comments: Keep scheduled appointment With: Address: When: Leonardo PETERS, Juan Alberto [address] [place] [id number] Within 1 to 2 weeks Comments: Call [...] Hiking uph (more content not included)... Normal [facility] Interdisciplinary Note - Salo e Manageron 11-12-2024 Interdisciplinary Note - Parcel Post Officer Interdisciplinary Note - Parcel Post Officer Patient awake,alert and oriented. Dr. Reyna is [...] concerns or needs. WHite board updated Normal [facility] Comment on above: Result Comment: Elec tronically Signed By: Hillary Munoz\.br\Date and Time Signed: 11/12/24 09:24 EDT Magnesiumon 11-12-2024 Magnesium [Mass/Vol] 2.0 mg/dL Normal 1.3-2.4 [facility] Comment on above: Performed By: #### 2 [id number] #### [facility] [address] [place] [address] eGFRon 11-12-2024 eGFR 85 mL/min/1.73 m2 Normal >=59 [facility] Comment on above: Performed By: #### 1 [id number] #### [facility] [address] [place] [address] BMPon 11-11-2024 Anion gap [Moles/Vol] 13 mmol/L Normal 6-16 [facility] Comment on above: Performed By: #### 2 [id number] #### [facility] [address] [place] [address] BUN/Creat Ratio 12 No Units Normal 10-20 [facility] Comment on above: Performed By: #### 2 994565 #### [facility] [address] [place] [address] Calcium [Mass/Vol] 9.2 mg/dL Normal 8.9-11.1 [facility] Comment on above: Performed By: #### 2 563761 #### [facility] [address] [place] [address] Chloride [Moles/Vol] 107 mmol/L Normal 101-111 [facility] Comment on above: Performed By: #### 2 066868 #### [facility] [address] [place] [address] CO2 [Moles/Vol] 22 mmol/L Normal 21-31 [facility] Comment on above: Performed By: #### 2 887821 #### [facility] [address] [place] [address] Creatinine [Mass/Vol] 1.2 mg/dL Normal 0.5-1.3 [facility] Comment on above: Performed By: #### 2 633685 #### [facility] [address] [place] [address] Glucose [Mass/Vol] 290 mg/dL High 55-199 [facility] Comment on above: Performed By: #### 2 557879 #### [facility] [address] [place] [address] Potassium [Moles/Vol] 3.9 mmol/L Normal 3.5-5.3 [facility] Comment on above: Performed By: #### 2 008697 #### [facility] [address] [place] [address] Sodium [Moles/Vol] 138 mmol/L Normal 135-145 [facility] Comment on above: Performed By: #### 2 025081 #### [facility] [address] [place] [address] Urea nitrogen [Mass/Vol] 15 mg/dL Normal 5-21 [facility] Comment on above: Performed By: #### 2 831858 #### [facility] [address] [place] [address] CBC w/ Auto Diffon 5 Basophil Absolute 0.0 E9/L Normal 0.0-0.2 [facility] Comment on above: Performed By: #### 2 136960 #### [facility] [address] [place] [address] Basophils/100 WBC (Bld) 0.6 % Normal 0.0-2.0 [facility] Comment on above: Performed By: #### 2 184504 #### [facility] [address] [place] [address] Eos Absolute 0.1 E9/L Normal 0.0-0.5 [facility] Comment on above: Performed By: #### 2 092111 #### [facility] [address] [place] [address] Eosinophils/100 WBC (Bld) 1.1 % Normal 0.0-8.0 [facility] Comment on above: Performed By: #### 2 393147 #### [facility] [address] [place] [address] Erythrocyte distribution width (RBC) [Ratio] 13.7 % Normal 10.9-14.2 [facility] Comment on above: Performed By: #### 2 370356 #### [facility] [address] [place] [address] Hematocrit (Bld) [Volume fraction] 49.5 % High 37.7-49.0 [facility] Comment on above: Performed By: #### 2 326398 #### [facility] [address] [place] [address] Hemoglobin (Bld) [Mass/Vol] 16.7 g/dL Normal 13.5-17.5 [facility] Comment on above: Performed By: #### 2 260458 #### [facility] [address] [place] [address] Lymph Absolute 1.9 E9/L Normal 1.0-4.0 [facility] Comment on above: Performed By: #### 2 129763 #### [facility] [address] [place] [address] Lymphocytes/100 WBC (Bld) 22.7 % Normal 14.0-50.0 [facility] Comment on above: Performed By: #### 2 173628 #### [facility] [address] [place] [address] MCH (RBC) [Entitic mass] 30.1 pg Normal 27.0-34.0 [facility] Comment on above: Performed By: #### 2 666935 #### [facility] [address] [place] [address] MCHC (RBC) [Mass/Vol] 33.8 g/dL Normal 31.4-36.0 [facility] Comment on above: Performed By: #### 2 912958 #### [facility] [address] [place] [address] MCV (RBC) [Entitic vol] 89.2 fL Normal 80.0-100.0 [facility] Comment on above: Performed By: #### 2 876383 #### [facility] [address] [place] [address] Republic Absolute 0.7 E9/L Normal 0.2-1.0 [facility] Comment on above: Performed By: #### 2 193158 #### [facility] [address] [place] [address] Monocytes/100 WBC (Bld) 8.3 % Normal 4.0-14.0 [facility] Comment on above: Performed By: #### 2 325146 #### [facility] [address] [place] [address] Neutro Absolute 5.6 E9/L Normal 2.0-7.5 [facility] Comment on above: Performed By: #### 2 414844 #### [facility] [address] [place] [address] Neutro Auto 67.3 % Normal 36.0-75.0 [facility] Comment on above: Performed By: #### 2 134627 #### [facility] [address] [place] [address] Platelet 132.0 E9/L Low 150.0-500.0 [facility] Comment on above: Performed By: #### 2 264330 #### [facility] [address] [place] [address] Platelet mean volume (Bld) [Entitic vol] 10.1 fL Normal 6.4-10.8 [facility] Comment on above: Performed By: #### 2 517387 #### [facility] [address] [place] [address] RBC 5.6 E12/L Normal 4.3-5.9 [facility] Comment on above: Performed By: #### 2 735750 #### [facility] [address] [place] [address] WBC 8.3 E9/L Normal 4.0-11.0 [facility] Comment on above: Performed By: #### 2 826760 #### [facility] [address] [place] [address] Capillary Glucose POCon 10-24 Glucose [Mass/Vol] 132 mg/dL High 55-99 [facility] Comment on above: Result Comment: Sanjuanita soto RN/ Performed By: #### 2 [id number] #### [facility] [address] [place] [address] Glucose [Mass/Vol] 117 mg/dL High 55-99 [facility] Comment on above: Result Comment: Sanjuanita soto RN/ Performed By: #### 2 [id number] #### [facility] [address] [place] [address] ED Clinical Summaryon 2024 ED Clinical Summary ED Clinical Summary [address] [address] ED Clinical Summary Person Information Name: RICK JENKINS Aranza [place] Age: 59 Years : 1965 Sex: Male Language: Setswana PCP: Juan Alberto Patterson MD Marital Status: Phone: [phone] Visit Id: Visit Reason: Shortness of breath; Chest pain; SOB, CP Speciality: Acuity: 1 Enc Type: Observation Med Service: Medical Arrival: 11/11/2024 09:31:31 Discharge: LOS: 000 03:58 Checkin: 11/11/2024 09:31:31 Checkout: 11/11/2024 13:29:47 Dispo Type: Admitted as IP to this [facility] EVENTS: Event Name Event Status Request [...] 11/11/2024 13:15:22 ADDRESS: [address] [place] [place] [id number] [facility] NOTES: MEDICAL INFORMATION: Prescriptions Given: Medications to Continue with No Changes Other Medications acetaminophen-hydroco done (Refugio 325 mg-5 mg oral tablet) 1-2 tab(s) [...] Follow up: DIAGNOSIS: 2:Hyperglycemia; 3:Thrombocytopenia; 4:Obesity Normal [facility] ED Note-Physicianon 11-12-19 ED Note-Physician ED Note-Physician Basic Information Time Seen: Emiliano Bravo DOKush 11/11/2024 09:39 Chief Complaint pt c/o midsternal cp that started this morning that lasted 20 mins and resolved. pt does also c/o sob. 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 For evaluation of [...] Home Colace (more content not included)... Normal [facility] Comment on above: Result Comment: Elec tronically Signed By: Emiliano Bravo DO\.br\Date and Time Signed: 11/11/24 18:16 EDT ED Patient Education Noteon 11-11-2024 ED Patient Education Note ED Patient Education Note Normal [facility] ED Patient Summaryon 025 ED Patient Summary ED Patient Summary [address] [address] Patient Discharge Instructions Person Information Name: RICK JENKINS Age: 59 Years Arrival Date: 11/11/2024 09:31:31 Discharge Diagnosis: 2:Hyperglycemia; 3:Thrombocytopenia; 4:Obesity Primary Care Physician: Juan Alberto Patterson MD Provider Information Primary Provider: Emiliano Bravo DO Advanced Ship Surveyor:None The exam and treatment you received in the Emergency Department were for an urgent problem and are not intended as complete care. It is important that you follow up with a doctor, nurse practitioner, or physician???s virtual assistant for ongoing care. If your symptoms become [...] opioids can be used to help relieve aojzprgi-wd-yffxuk pain and are often prescribed following a [...] be struggling with addiction, tell your health zoo caretaker and ask for guidance or call [facility]???S National Helpline at 2-615-143-LRFJ. v Source: [place] Department of Health and Human Services/Center for (more content not included)... Normal [facility] [id number] 11-11-2024 HbA1c (Bld) [Mass fraction] 6.4 % High <=5.9 [facility] Comment on above: Performed By: #### 7 [id number] #### [facility] [address] [place] [address] Interdisciplinary Note - Salo e Manageron 11-11-2024 Interdisciplinary Note - Parcel Post Officer Interdisciplinary Note - Parcel Post Officer Patient awake,alert and oriented. is at bedside. Patient able to participate in dc planning. Patient observation status for SOB and CP. PCP, DME and insurance information confirmed. Patient lives with and she will transport at dc. Patient independent with all IADL's, ADL's, works and drives. Declined HH or paramedicine service. Denies any dc concerns or needs. WHite board updated Normal [facility] Comment on above: Result Comment: Elec tronically Signed By: Hillary Munoz\.br\Date and Time Signed: 11/11/24 16:06 EDT Magnesiumon 11-11-2024 Magnesium [Mass/Vol] 1.9 mg/dL Normal 1.3-2.4 [facility] Comment on above: Performed By: #### 2 [id number] #### [facility] [address] [place] [address] PT & PTTon 11-11-2024 INR Coag (PPP) [Relative time] 1.01 {INR} Invalid Interpretation Code [facility] Comment on above: Result Comment: INR results are specifically intended to assess patients stabilized on long-term Anticoagulation therapy suggested INR???s ???Less Intensive Anticoagulation??? 2.0 ??? 3.0 Conventional Range 3.0 ??? 4.5 Performed By: #### 1 [id number] #### [facility] [address] [place] [address] PT 11.3 second(s) Normal 9.4-12.5 [facility] Comment on above: Result Comment: 15 d [...] the same coagulation reagent and instrumentation as [facility]. Currently there are no coagulation studies available worldwide for children to 14 days, and no normal ranges. Performed By: #### 1 [id number] #### [facility] [address] [place] [address] PTT 33.2 second(s) Normal 25.1-36.5 [facility] Comment on above: Result Comment: Para meter [...] the same coagulation reagent and instrumentation as [facility]. Currently there are no coagulation studies available worldwide for children to 14 days, and no normal ranges. Heparin therapeutic range (represented by Anti-Factor Xa activity of 0.2 - 0.4 U/mL) corresponds to PTT of 56.6 - 109.0 sec. Performed By: #### 1 [id number] #### [facility] [address] [place] [address] TSH With T4fr Reflexon 11-11 TSH Qn 1.86 m[IU]/L Normal 0.34-5.60 [facility] Comment on above: Performed By: #### 1 [id number] #### [facility] [address] [place] [address] Troponin 0 Hr.on 11-11-2024 Troponin HS 18.40 pg/mL Normal 15.90-38.40 [facility] Comment on above: Result Comment: The 95% CI (Confidence Interval) PPV (Positive Predictive Value) for myocardial infarction in females is 38 pg/mL, in males 51 pg/mL. The results should be used in conjunction with clinical conditions of myocardial infarction. (Access High Sensitivity Troponin I Instructions For Use, [employer], October 2017) Performed By: #### 1 [id number] #### [facility] [address] [place] [address] Troponin 1 Hr.on 11-11-2024 Troponin HS 25.70 pg/mL Normal 15.90-38.40 [facility] Comment on above: Result Comment: The 95% CI (Confidence Interval) PPV (Positive Predictive Value) for myocardial infarction in females is 38 pg/mL, in males 51 pg/mL. The results should be used in conjunction with clinical conditions of myocardial infarction. (Access High Sensitivity Troponin I Instructions For Use, [employer], October 2017) Performed By: #### 1 [id number] #### [facility] [address] [place] [address] XR Chest Single Viewon 11-11 XR Chest [...] MD Transcribed by: ANATOLIY Technologist: PORSHA Normal [facility] eGFRon 11-11-2024 eGFR 69 mL/min/1.73 m2 Normal >=59 [facility] Comment on above: Performed By: #### 1 [id number] #### [facility] [address] [place] [address] MRI KNEE RT WO CONon 020 MRI KNEE RT WO CON Patient: RICK JENKINS Exam Date: 04/13/2019 : 1965 Gender:M Ordering : MEG REYEZ [employer] Admission #: [id number] Family : ZELDA JOHNSON Order #: [id number] CLICK HERE TO VIEW EXAM RADIOLOGY REPORT [...] Gavino Rodriguez M.D. on 04/13/2019 at 10:14 [facility] XR KNEE RT 4V OR >on 019 XR KNEE RT 4V OR > Patient: RICK JENKINS Exam Date: 03/21/2019 : 1965 Gender:M Ordering : DR BILLY BLACKMAN D.O. Admission #: [id number] Family : DR. EARNEST MELLO . Order #: [id number] CLICK HERE TO VIEW EXAM RADIOLOGY REPORT [...] Anderson M.D. on 03/21/2019 at 09:10 Normal [facility] Encounters Encounter Date Encounter Type Care Provider Facility Start: 11-11-2024 End: 11-12-2024 ambulatory Bladimir ConnellKush Javy Facility:[facility] Start: 11-11-2024 Emergency department patient visit Emiliano Bravo Facility:[facility] Start: 04-13-2019 End: 04-14-2019 Patient encounter procedure MEG REYEZ Facility: Start: 03-21-2019 End: 03-21-2019 Patient encounter procedure JUAN ALBERTO CLEMENTEPriya Facility:[facility] Payers Date Payer Category Payer Unknown [id number] 2024 Private Health Insurance 2024 Self-pay 2024 Unknown 1965 Unknown [id number] 2.16.84 [id number] 1965 Unknown [id number] 2.16.84 [id number] 1965 Unknown [id number] 2.16.8 [id number] 1965 Unknown [id number] 2.16.8 [id number] 1965 Unknown [id number] 2.16.8 [id number] 1965 Unknown [id number] 2.16.8 [id number] 1965 Unknown [id number] 2.16.8 [id number] 1965 Unknown [id number] 2.16.8 [id number] 1965 Unknown [id number] 2.16.8 [id number] 1961 Private Health Insurance [id number] 1961 Unknown [id number] Discharge summary note 11-13-2024 Note Date & Type Note Facility 11-13-2024 Note Discharge Summary Admission and Discharge Information Admitting Physician - Bladimir Palafox DO Consulting Physician - [facility] Cardio, XXXX Admitting Diagnoses: 1. Atrial fibrillation, [...] made to ensure accuracy, however, inadvertently computerized legal manager mistakes may be present. Physical Exam General: [...] Lauren, CAR 11/27/2024 03:30 PM EDT [address] [place] [address]- [phone] Additional Instructions: Keep scheduled appointment Juan Alberto Patterson MD Within 1 to 2 weeks [facility] [place] [address]- Additional Instructions: Call for followup appointment Call jackelyn (more content not included)... 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 [facility] Comment on above: Result Comment: Elec tronically Signed By: Angelika Iverson CNP L\.br\Date and Time Signed: 11/11/24 15:43 EDT\.br\Electronically Co-Signed By: Bladimir Palafox DO\.br\Date and Time Co-Signed: 11/12/24 07:17 EDT Clinical Note 11-11-2024 Note Date & Type Note Facility 11-11-2024 Note Echocardiology Procedure Exam Date/Time Accession # Ordering Echo Transthoracic w/ 11/11/2024 15:41 EDT -[id number] Kishor RIVAS, Contrast Angelika Zheng CPT code [id number] Reason for Exam (Echo Transthoracic w/ Contrast) New onset AF;Other (please specify) Report [address] [address] Adult Echocardiogram Report Name: RICK JENKINS Study Date: 11/11/2024 03:00 PM BP: 126/85 mmHg Patient Location: [address] [place] [address] 01 HR: 105 : 1965 Gender: Male Height: 73.5 in Age: 59 yrs Ethnicity: [facility] Weight: 236 lb Reason For Study: New onset AF;Other (please specify) BSA: 2.3 m2 History: Smoker-Quit,Partial left lung lobectomy Ordering Physician: Kishor^Clayton Performed By: Diane Major, DARLYN, RVT Interpretation [...] Rosa MD Transcribed by: TRUDY Technologist: KARRIE [facility] Summary Purpose Family History No Family History [...] DATE CREATED AUTHOR AUTHOR'S ORGANIZ ATION 11/12/2024 [facility] DATE CREATED AUTHOR AUTHOR'S ORGANIZ ATION 11/13/2024 [facility] DATE CREATED AUTHOR AUTHOR'S ORGANIZ ATION 11/18/2024 [facility] FOR RECORDS PERTAINING TO PATIENTS WHO [...] BE BASED ON THE PRIMARY CLINICAL RECORDS. [facility]. provides no warranty or guarantee of the accuracy or completeness of information in this document.
== END 2025-01-06 20:50 | disposition home or self-care (01) ==
PROVIDERS: PCP Family Medicine; Visit Provider Family Medicine
DX: G47.33 Obstructive sleep apnea (adult) (pediatric) (principal)
CPT/HCPCS: 95810